=== PATIENT | female | born 1980 | race Caucasian/White ===

== ENCOUNTER 2025-02-01 16:03 | Outpatient (CLI) | payer OTHER, SELFPAY ==
--- NOTE | ~2025-02-01 | CT_ITS ---
EXAMINATION: CT BRAIN W/O DATE: 02/01/2025 16:36 INDICATION: Headache TECHNIQUE: Computed tomography (CT) of the head was performed without intravenous contrast. The dose- length product was 605.33 mGy-cm. Automated exposure control and iterative reconstruction technique w ere employed. COMPARISON: No prior studies for comparison. FINDINGS: Normal brain parenchymal volume for age. Normal agudelo-white differentiation. No acute intrac ranial hemorrhage, infarction, mass or mass effect. No ventriculomegaly or midline shift. Midline sagittal images demonstrate a normal corpus callosum, c raniovertebral junction and sella turcica. Basilar cisterns are patent. Paranasal sinuses are unremarkable. Small left mastoid effusion No depressed skull fractures. IMPRESSION: 1. No acute intracranial abnormality. Reviewed, dictated and finalized at location A.
--- OUTSIDE RECORDS SUMMARY | 2025-02-01 16:45 | XMS_ITS | Data Portability ---
Author Organization [place] - [facility] , [facility] Address [address] [place] [address] Assessment Encounter Date Assessment Date Assessment LastModified by Organization Details LastModified Time 09/16/2024 09/16/2024 DD: stye vs chalazion A: Chalazion suspected. Diagnosis and treatment plan discussed with patient using shared decision making. Patient voices understanding and agrees with treatment plan. P: Use erythromycin ointment as prescribed. Apply warm compresses to left eye 3 times daily for 10-15 minutes each time. Follow up with your regular doctor in 5 days if not improved. [email or web address] Not available 09/16/2024 12:37:32 Plan of Treatment Reminders Order Date Submit Date Provider Last Modified By Organization Details Last Modified Time Details Appointments None recorded. Lab None recorded. Referral None recorded. Procedures None recorded. Surgeries None recorded. Imaging None recorded. Medication Orders erythromyci n 5 mg/gram (0.5 %) eye ointment 2023 024 [facility] [id number], [address], 12:38:28 Patient TargetsNo targets recorded. Patient Instructions Encounter Date Encounter Id Patient Instructions Last Modified By Organization Details Last Modified Time 09/16/2024 [id number] styes and chalazia: care instructions [email or web address] Not available 09/16/2024 12:38:25 Reason for Referral None Reported. Medical Equipment None Reported. Allergies No known drug allergies Medications Name Sig Start Date Stop Date Status Note LastModified by Organization Details LastModified Time clonidine HCl 0.1 mg tablet TAKE 1 TABLET BY MOUTH TWICE A DAY active Not Available Not Available No t Available alprazolam 1 mg tablet TAKE 1 TABLET BY MOUTH TWICE A DAY active Not Available Not Available No t Available metronidaz ole 500 mg tablet TAKE 1 TABLET BY MOUTH THREE TIMES A DAY. AVOID ALCOHOL CONSUMPTI ON active Not Available Not Available No t Available pantoprazo le 40 mg tablet,del ayed release TAKE 1 TABLET BY MOUTH EVERY DAY active Not Available Not Available No t Available erythromyc in 5 mg/gram (0.5 %) eye ointment APPLY 1 CM RIBBON INTO THE LOWER CONJUNCTI JESSEE SAC(S) IN THE AFFECTED EYE(S) BY OPHTHALMI C ROUTE 3 TIMES PER DAY 2023 active Not Available Not Available Not Avai lable levofloxac in 500 mg tablet TAKE 1 TABLET BY MOUTH EVERY DAY active Not Available Not Available No t Available bupropion HCl XL 150 mg 24 hr tablet, extended release TAKE 1 TABLET BY MOUTH EVERY DAY DIRECTED active Not Available Not Available No t Available clonidine active ADDED BY PATIENT: .1 mg per day for hot flashes Not Available Not Available Not Available cetirizine active ADDED BY PATIENT: 1 x per day for allergies Not Available Not Available Not Available pantoprazo le active ADDED BY PATIENT: once per day in the am for acid reflux. Not Available Not Available Not Available multivitam in active ADDED BY PATIENT: 1xper day Not Available Not Available Not Available Flonase Allergy Relief active ADDED BY PATIENT: over the counter version2 squirts per nostril 1xper day Not Available Not Available Not Available Vitals None Recorded Social History None recorded. Functional Status None recorded. Mental Status None recorded. Family History Nothing Reported. Medical History No medical history recorded. Gynecological HistoryNo gynecological history recorded. Obstetrics History GPAL:G 0 P 0 0 0 0 Past Encounters Encounter ID Performer Location Encounter Start Date Encounter Closed Date Diagnosis/Indication Diagnosis SNOMED-CT Code Diagnosis ICD10 Code Diagnosis Note [id number] GABRIELLE Cook [facility] [address] [place] [address] 09/16/2024 12:24:59 09/16/2024 18:36:02 Chalazion of left upper eyelid [id number] 80923 H00.14 Health Concerns Section Related Observation LastModified by Organization Detai ls LastModified Time None Recorded Concern Status LastModified by Organization Details LastModified Time None Recorded Advance Directives Directive None Recorded Payers Encounter Date Sequence Insurance Name Policy Number Policy Iglesias Covered Member ID Iglesias Member ID Guarantor Name 09/16/2024 1 [facility] [id number] Deloris Rosenthal [id number] Deloris Rosenthal 09/16/2024 2 *SELF PAY* [id number] Deloris Rosenthal [id number] Deloris Rosenthal Notes Date Note Type Note Provider Name and Address Organization Details Recorded Time 09/16/2024 text/html Call connected, patient greeted. Patient name, , telephone number and location verified verbally with the patient. Telemedicine limitations reviewed, answered all questions the patient had about the telehealth interaction, and verbal consent obtained to treat. Clinician attests they are physically located in the following state at the time of visit: [place] CC:eyelid HPI:43 year old female patient presents today for left upper eyelid swelling and redness starting 6 days agoOTC/prescription medications and/or at home treatments include: warm compresses without reliefPatient denies: changes to vision or pain GABRIELLE Cook [address] [place] [address], [address], [facility] - [facility] 09/16/2024 12:38:31 OBGyn Episode No OBEpisode recorded.
--- OUTSIDE RECORDS SUMMARY | 2025-02-01 16:45 | XMS_ITS | Data Portability ---
Author Organization [facility] Cynny, Main Office Address [address] [place] [address] Assessment Encounter Date Assessment Date Assessment LastModified by Organization Details LastModified Time 01/12/2023 01/12/2023 Upper and lower endoscopies continue with current therapy she will see me back in 4 months anxiety discussed refill [email or web address] Diverticulitis dietary strategies discussed Sumatriptan migraines [email or web address] Not available 01/18/2023 13:28:57 05/06/2023 05/06/2023 Will try to get a G LP 1 agent. 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 Lab [email or web address] obin, total, blood 2022 023 [facility] (Lab), [address] [place], [address], 16:56:21 T3, free, serum or plasma 2022 023 [facility] (Lab), [address] [place], [address], 3 12:57:45 TSH, serum or plasma 2022 023 [facility] (Lab), [address] [place], [address], 3 12:59:57 T4, free, serum 2022 023 [facility] (Lab), [address] [place], [address], 3 12:57:55 CBC w/ auto diff 2022 023 [facility] (Lab), [address] [place], [address], 3 12:22:14 lipid panel, serum 2022 023 [facility] (Lab), [address] [place], [address], 3 12:37:23 CMP, serum or plasma 2022 023 [facility] (Lab), [address] [place], [address], 3 12:37:29 Referral None recorded. Procedures None recorded. Surgeries None recorded. Imaging None recorded. Medication Orders Wegovy 0.25 mg/0.5 mL subcutaneou s pen injector 2022 023 [id number], [address] [place], [address], 11:40:20 Patient TargetsNo targets recorded. Patient InstructionsNo instructions recorded. Reason for Referral None Reported. Results Created Date Observation Date Name Description Value Unit Range Abnormal Flag Note LastModifiedBy Organization Detail LastModifiedTime 11/05/19 23 11/05/2022 COMPR EHENS SHIRLEY METAB OLIC PANEL sodium 138 mmol/ L 137-14 5 Not Available [facility] (Lab) [address] [place], [address], 11/05/2022 22:28:42 11/05/19 23 11/05/2022 COMPR EHENS SHIRLEY METAB OLIC PANEL potassium 4.3 mmol/ L 3.5-5. 1 Not Available [facility] (Lab) [address] [place], [address], 11/05/2022 22:28:42 11/05/19 23 11/05/2022 COMPR EHENS SHIRLEY METAB OLIC PANEL chloride 102 mmol/ L 98-107 Not Available [facility] (Lab) [address] [place], [address], 11/05/2022 22:28:42 11/05/19 23 11/05/2022 COMPR EHENS SHIRLEY METAB OLIC PANEL carbon dioxide 26 mmol/ L 22-30 Not Available [facility] (Lab) [address] [place], [address], 11/05/2022 22:28:42 11/05/19 23 11/05/2022 COMPR EHENS SHIRLEY METAB OLIC PANEL anion gap 14.3 mmol/ L 14-22 Not Available [facility] (Lab) [address] [place], [address], 11/05/2022 22:28:42 11/05/19 23 11/05/2022 COMPR EHENS SHIRLEY METAB OLIC PANEL glucose 87 mg/dL 70-99 Not Available [facility] (Lab) [address] [place], [address], 11/05/2022 22:28:42 11/05/19 23 11/05/2022 COMPR EHENS SHIRLEY METAB OLIC PANEL BUN 10 mg/dL 8-19 Not Available [facility] (Lab) [address] [place], [address], 11/05/2022 22:28:42 11/05/19 23 11/05/2022 COMPR EHENS SHIRELY METAB OLIC PANEL creatinine 0.65 mg/dL 0.66-1 .25 low Not Available [facility] (Lab) [address] [place], [address], 11/05/2022 22:28:42 11/05/19 23 11/05/2022 COMPR EHENS SHIRLEY METAB OLIC PANEL GFR >60 Refer ence Range : [place] ge GFR Healt hy Adult : >60 mL/mi n/1.7 3 m2 Chron ic Kidne y Disea se: 15-60 mL/mi n/1.7 3 m2 Kidne y Failu re: <15/m L/min /1.73 m2 www.n iddk. nih.g ov The MDRD study equat ion has not been valid ated in child charisse <18 years of age; pregn ant women ; the elder ly >85 years of age; or in some racia l or ethni c subgr oups, such as [facility] nics. Outsi de the valid ated santosh eters , estim ated GFR is less accur ate, requi ring clini nidia judgm ent on a case- by-ca se basis . Clini nidia inter preta tion for other races and ages must be made by the clini anahy. The MDRD study equat ion has not been valid ated for the evalu ation of serum creat inine relat ed to nutri perri l statu s or medic ation usage . For perso ns <18 years of age, a pedia tric GFR calcu lator is avail able on the F websi te: https ://ww w.kid alec.o rg/pr ofess ional s/kdo qi/gf r_cal culat or Not Available [facility] (Lab) [address] [place], [address], 11/05/2022 22:28:42 11/05/19 23 11/05/2022 COMPR EHENS SHIRLEY METAB OLIC PANEL alkaline phosphatase 84 U/L 38-126 Not Available [facility] (Lab) [address] [place], [address], 11/05/2022 22:28:42 11/05/19 23 11/05/2022 COMPR EHENS SHIRLEY METAB OLIC PANEL alanine aminotransfe rase 27 U/L 0-35 Not Available [facility] (Lab) [address] [place], [address], 11/05/2022 22:28:42 11/05/19 23 11/05/2022 COMPR EHENS SHIRLEY METAB OLIC PANEL aspartate aminotransfe rase 26 U/L 15-37 Not Available [facility] (Lab) [address] [place], [address], 11/05/2022 22:28:42 11/05/19 23 11/05/2022 COMPR EHENS SHIRLEY METAB OLIC PANEL bilirubin, total 0.80 mg/dL 0.20-1 .30 Not Available [facility] (Lab) [address] [place], [address], 11/05/2022 22:28:42 11/05/19 23 11/05/2022 COMPR EHENS SHIRLEY METAB OLIC PANEL calcium 9.3 mg/dL 8.4-10 .2 Not Available [facility] (Lab) [address] [place], [address], 11/05/2022 22:28:42 11/05/19 23 11/05/2022 COMPR EHENS SHIRLEY METAB OLIC PANEL total protein 7.5 g/dL 6.3-8. 2 Not Available [facility] (Lab) [address] [place], [address], 11/05/2022 22:28:42 11/05/19 23 11/05/2022 COMPR EHENS SHIRLEY METAB OLIC PANEL albumin 4.7 g/dL 3.4-5. 0 Not Available [facility] (Lab) [address] [place], [address], 11/05/2022 22:28:42 11/05/19 23 11/05/2022 COMPR EHENS SHIRLEY METAB OLIC PANEL globulin 2.8 g/dL 2.6-4. 2 Not Available [facility] (Lab) [address] [place], [address], 11/05/2022 22:28:42 11/05/19 23 11/05/2022 COMPR EHENS SHIRLEY METAB OLIC PANEL A/G ratio 1.7 ratio 1.0-2. 0 Not Available [facility] (Lab) [address] [place], [address], 11/05/2022 22:28:42 11/05/19 23 11/05/2022 LIPID PANEL cholesterol 230 mg/dL 140-19 9 high NIH [facility] NSUS RECOM MENDA TION FOR LOLI STERO L: ADULT CHILD LOW RISK: <200 <170 BORDE RLINE : <200- 239 ----- HIGH RISK: >240 >200 Not Available [facility] (Lab) [address] [place], [address], 11/05/2022 19:00:34 11/05/1911/05/2022 LIPID PANEL triglyceride s 103 mg/dL 0-150 NIH [facility] NSUS REPOR T RECOM MENDA TION FOR TRIGL YCERI FESTUS: ADULT CHILD LOW RISK: <150 ----- BODER LINE: 150-1 99 ----- HIGH RISK: >200 ----- Not Available [facility] (Lab) [address] [place], [address], 11/05/2022 19:00:34 11/05/19 23 11/05/2022 LIPID PANEL HDL cholesterol 57 mg/dL 40- Not Available [facility] (Lab) [address] [place] [address], [address], 11/05/2022 19:00:34 11/05/19 23 11/05/2022 LIPID PANEL LDL cholesterol, calculated 152 mg/dL 0-130 high NIH [facility] NSUS REPOR T RECOM MENDA TIONS FOR LDL: ADULT CHILD LOW RISK <130 <110 (OPTI MAL LDL) <100 ----- BALADE RLINE : 130-1 59 ----- HIGH RISK: >160 >130 A TRIGL YCERI DE RESUL T >400 INVAL IDATE S THE CALCU LATIO N FOR LDL FRACT IONAT ION - THE LDL RESUL T WILL NOT BE REPOR SUN. Not Available [facility] (Lab) [address] [place], [address], 11/05/2022 19:00:34 11/05/19 23 11/05/2022 CBC W/O DIFFE RENTI AL white blood cells 11.2 x10'3 /uL 4.2-10 .8 high Not Available [facility] (Lab) [address] [place], [address], 11/05/2022 18:08:54 11/05/19 23 11/05/2022 CBC W/O DIFFE RENTI AL red blood cells 4.80 x10'6 /uL 3.80-5 .20 Not Available [facility] (Lab) [address] [place], [address], 11/05/2022 18:08:54 11/05/19 23 11/05/2022 CBC W/O DIFFE RENTI AL hemoglobin 14.4 g/dL 12.0-1 5.6 Not Available [facility] (Lab) [address] [place], [address], 11/05/2022 18:08:54 11/05/19 23 11/05/2022 CBC W/O DIFFE RENTI AL hematocrit 42.8 % 35.7-4 5.7 Not Available [facility] (Lab) [address] [place], [address], 11/05/2022 18:08:54 11/05/19 23 11/05/2022 CBC W/O DIFFE RENTI AL mean red cell volume 89.2 fL 82.0-9 9.0 Not Available [facility] (Lab) [address] [place], [address], 11/05/2022 18:08:54 11/05/19 23 11/05/2022 CBC W/O DIFFE RENTI AL mean red cell hemoglobin 30.0 pg 27.0-3 3.0 Not Available [facility] (Lab) [address] [place], [address], 11/05/2022 18:08:54 11/05/19 23 11/05/2022 CBC W/O DIFFE RENTI AL mean RBC HGB concentratio n 33.6 g/dL 31.0-3 6.0 Not Available [facility] (Lab) [address] [place], [address], 11/05/2022 18:08:54 11/05/19 23 11/05/2022 CBC W/O DIFFE RENTI AL red cell distribution width 12.3 % 11.8-1 5.5 Not Available [facility] (Lab) [address] [place], [address], 11/05/2022 18:08:54 11/05/19 23 11/05/2022 CBC W/O DIFFE RENTI AL platelets 242 x10'3 /uL 150-40 0 Not Available [facility] (Lab) [address] [place], [address], 11/05/2022 18:08:54 11/05/19 23 11/05/2022 CBC W/O DIFFE RENTI AL mean platelet volume 11.2 fL 9.0-12 .4 Not Available [facility] (Lab) [address] [place], [address], 11/05/2022 18:08:54 12/17/19 23 12/17/2022 URINE MICRO SCOPI C EXAM/ IRIS white blood cells 0-8 /i??h pfi?? 0-8 Not Available [facility] (Lab) [address] [place], [address], 12/17/2022 17:21:13 12/17/19 23 12/17/2022 URINE MICRO SCOPI C EXAM/ IRIS red blood cells 11-20 /i??h pfi?? 0-4 abnormal Not Available [facility] (Lab) [address] [place], [address], 12/17/2022 17:21:13 12/17/19 23 12/17/2022 URINE MICRO SCOPI C EXAM/ IRIS bacteria occasi onal abnormal Not Available [facility] (Lab) [address] [facility] [place], [address], 12/17/2022 17:21:13 12/17/19 23 12/17/2022 URINE MICRO SCOPI C EXAM/ IRIS mucous many /i??l pfi?? abnormal Not Available [facility] (Lab) [address] [place], [address], 12/17/2022 17:21:13 12/17/19 23 12/17/2022 URINE MICRO SCOPI C EXAM/ IRIS squamous epithelial packed field /i??l pfi?? abnormal Not Available [facility] (Lab) [address] [place], [address], 12/17/2022 17:21:13 12/17/19 23 12/17/2022 CBC/C OMPLE TE BLD COUNT W/DIF F white blood cells 12.6 x10'3 /uL 4.2-10 .8 high Not Available [facility] (Lab) [address] [place], [address], 12/17/2022 17:20:28 12/17/19 23 12/17/2022 CBC/C OMPLE TE BLD COUNT W/DIF F red blood cells 5.02 x10'6 /uL 3.80-5 .20 Not Available [facility] (Lab) [address] [place], [address], 12/17/2022 17:20:28 12/17/19 23 12/17/2022 CBC/C OMPLE TE BLD COUNT W/DIF F hemoglobin 15.1 g/dL 12.0-1 5.6 Not Available [facility] (Lab) [address] [place], [address], 12/17/2022 17:20:28 12/17/19 23 12/17/2022 CBC/C OMPLE TE BLD COUNT W/DIF F hematocrit 45.7 % 35.7-4 5.7 Not Available [facility] (Lab) [address] [place], [address], 12/17/2022 17:20:28 12/17/19 23 12/17/2022 CBC/C OMPLE TE BLD COUNT W/DIF F mean red cell volume 91.0 fL 82.0-9 9.0 Not Available [facility] (Lab) [address] [place], [address], 12/17/2022 17:20:28 12/17/19 23 12/17/2022 CBC/C OMPLE TE BLD COUNT W/DIF F mean red cell hemoglobin 30.1 pg 27.0-3 3.0 Not Available [facility] (Lab) [address] [place], [address], 12/17/2022 17:20:28 12/17/19 23 12/17/2022 CBC/C OMPLE TE BLD COUNT W/DIF F mean RBC HGB concentratio n 33.0 g/dL 31.0-3 6.0 Not Available [facility] (Lab) [address] [place], [address], 12/17/2022 17:20:28 12/17/19 23 12/17/2022 CBC/C OMPLE TE BLD COUNT W/DIF F red cell distribution width 12.2 % 11.8-1 5.5 Not Available [facility] (Lab) [address] [place], [address], 12/17/2022 17:20:28 12/17/19 23 12/17/2022 CBC/C OMPLE TE BLD COUNT W/DIF F platelets 306 x10'3 /uL 150-40 0 Not Available [facility] (Lab) [address] [place], [address], 12/17/2022 17:20:28 12/17/19 23 12/17/2022 CBC/C OMPLE TE BLD COUNT W/DIF F mean platelet volume 9.7 fL 9.0-12 .4 Not Available [facility] (Lab) [address] [place], [address], 12/17/2022 17:20:28 12/17/19 23 12/17/2022 CBC/C OMPLE TE BLD COUNT W/DIF F neutrophils 68.1 % 39.0-7 2.0 Not Available [facility] (Lab) [address] [place], [address], 12/17/2022 17:20:28 12/17/19 23 12/17/2022 CBC/C OMPLE TE BLD COUNT W/DIF F lymphocytes 20.9 % 16.0-4 7.0 Not Available [facility] (Lab) [address] [place], [address], 12/17/2022 17:20:28 12/17/19 23 12/17/2022 CBC/C OMPLE TE BLD COUNT W/DIF F monocytes 9.1 % 5.0-12 .0 Not Available [facility] (Lab) [address] [place], [address], 12/17/2022 17:20:28 12/17/19 23 12/17/2022 CBC/C OMPLE TE BLD COUNT W/DIF F eosinophils 1.0 % 1.0-7. 0 Not Available [facility] (Lab) [address] [place], [address], 12/17/2022 17:20:28 12/17/19 23 12/17/2022 CBC/C OMPLE TE BLD COUNT W/DIF F basophils 0.4 % 0.0-2. 0 Not Available [facility] (Lab) [address] [facility] [place], [address], 12/17/2022 17:20:28 12/17/19 23 12/17/2022 CBC/C OMPLE TE BLD COUNT W/DIF F immature granulocytes 0.5 % 0.00-0 .50 Not Available [facility] (Lab) [address] [facility] [place], [address], 12/17/2022 17:20:28 12/17/19 23 12/17/2022 CBC/C OMPLE TE BLD COUNT W/DIF F neutrophils, absolute count 8.58 x10'3 /uL 1.5-8. 0 high Not Available [facility] (Lab) [address] [place], [address], 12/17/2022 17:20:28 12/17/19 23 12/17/2022 CBC/C OMPLE TE BLD COUNT W/DIF F lymphocytes, absolute count 2.64 x10'3 /uL 1.07-3 .43 Not Available [facility] (Lab) [address] [place], [address], 12/17/2022 17:20:28 12/17/19 23 12/17/2022 CBC/C OMPLE TE BLD COUNT W/DIF F monocytes, absolute count 1.15 x10'3 /uL 0.29-0 .99 high Not Available [facility] (Lab) [address] [place], [address], 12/17/2022 17:20:28 12/17/19 23 12/17/2022 CBC/C OMPLE TE BLD COUNT W/DIF F eosinophils, absolute count 0.13 x10'3 /uL 0.02-0 .53 Not Available [facility] (Lab) [address] [place], [address], 12/17/2022 17:20:28 12/17/19 23 12/17/2022 CBC/C OMPLE TE BLD COUNT W/DIF F basophils, absolute count 0.05 x10'3 /uL 0.01-0 .08 Not Available [facility] (Lab) [address] [place], [address], 12/17/2022 17:20:28 12/17/19 23 12/17/2022 CBC/C OMPLE TE BLD COUNT W/DIF F immature granulocytes ,absolute 0.06 x10'3 /uL 0.00-0 .05 high Not Available [facility] (Lab) [address] [place], [address], 12/17/2022 17:20:28 12/17/19 23 12/17/2022 CBC/C OMPLE TE BLD COUNT W/DIF F nucleated red blood cells 0.0 % -0 Not Available [facility] (Lab) [address] [place], [address], 12/17/2022 17:20:28 12/17/19 23 12/17/2022 CBC/C OMPLE TE BLD COUNT W/DIF F NRBC# 0.00 x10'3 /uL Not Available [facility] (Lab) [address] [place], [address], 12/17/2022 17:20:28 12/17/19 23 12/17/2022 LIPAS E SERUM lipase 23 U/L 23-300 Not Available [facility] (Lab) [address] [place], [address], 12/17/2022 17:09:58 12/17/19 23 12/17/2022 COMPR EHENS SHIRLEY METAB OLIC PANEL sodium 136 mmol/ L 137-14 5 low Not Available [facility] (Lab) [address] [place], [address], 12/17/2022 17:09:10 12/17/19 23 12/17/2022 COMPR EHENS SHIRLEY METAB OLIC PANEL potassium 4.2 mmol/ L 3.5-5. 1 Not Available [facility] (Lab) [address] [place], [address], 12/17/2022 17:09:10 12/17/19 23 12/17/2022 COMPR EHENS SHIRLEY METAB OLIC PANEL chloride 104 mmol/ L 98-107 Not Available [facility] (Lab) [address] [place], [address], 12/17/2022 17:09:10 12/17/19 23 12/17/2022 COMPR EHENS SHIRLEY METAB OLIC PANEL carbon dioxide 25 mmol/ L 22-30 Not Available [facility] (Lab) [address] [place], [address], 12/17/2022 17:09:10 12/17/19 23 12/17/2022 COMPR EHENS SHIRLEY METAB OLIC PANEL anion gap 11.2 mmol/ L 14-22 low Not Available [facility] (Lab) [address] [place], [address], 12/17/2022 17:09:10 12/17/19 23 12/17/2022 COMPR EHENS SHIRLEY METAB OLIC PANEL glucose 98 mg/dL 70-99 Not Available [facility] (Lab) [address] [place], [address], 12/17/2022 17:09:10 12/17/19 23 12/17/2022 COMPR EHENS SHIRLEY METAB OLIC PANEL BUN 12 mg/dL 8-19 Not Available [facility] (Lab) [address] [place], [address], 12/17/2022 17:09:10 12/17/19 23 12/17/2022 COMPR EHENS SHIRLEY METAB OLIC PANEL creatinine 0.64 mg/dL 0.66-1 .25 low Not Available [facility] (Lab) [address] [place], [address], 12/17/2022 17:09:10 12/17/19 23 12/17/2022 COMPR EHENS SHIRLEY METAB OLIC PANEL GFR >60 Refer ence Range : [place] ge GFR Healt hy Adult : >60 mL/mi n/1.7 3 m2 Chron ic Kidne y Disea se: 15-60 mL/mi n/1.7 3 m2 Kidne y Failu re: <15/m L/min /1.73 m2 www.n iddk. nih.g ov The MDRD study equat ion has not been valid ated in child charisse <18 years of age; pregn ant women ; the elder ly >85 years of age; or in some racia l or ethni c subgr oups, such as [facility] nics. Outsi de the valid ated santosh eters , estim ated GFR is less accur ate, requi ring clini nidia judgm ent on a case- by-ca se basis . Clini nidia inter preta tion for other races and ages must be made by the clini anahy. The MDRD study equat ion has not been valid ated for the evalu ation of serum creat inine relat ed to nutri perri l statu s or medic ation usage . For perso ns <18 years of age, a pedia tric GFR calcu lator is avail able on the F websi te: https ://ww w.kid alec.o rg/pr ofess ional s/kdo qi/gf r_cal culat or Not Available [facility] (Lab) [address] [place], [address], 12/17/2022 17:09:10 12/17/19 23 12/17/2022 COMPR EHENS SHIRLEY METAB OLIC PANEL alkaline phosphatase 80 U/L 38-126 Not Available [facility] (Lab) [address] [place], [address], 12/17/2022 17:09:10 12/17/19 23 12/17/2022 COMPR EHENS SHIRLEY METAB OLIC PANEL alanine aminotransfe rase 28 U/L 0-35 Not Available [facility] (Lab) [address] [place], [address], 12/17/2022 17:09:10 12/17/19 23 12/17/2022 COMPR EHENS SHIRLEY METAB OLIC PANEL aspartate aminotransfe rase 35 U/L 15-37 Not Available [facility] (Lab) [address] [place], [address], 12/17/2022 17:09:10 12/17/19 23 12/17/2022 COMPR EHENS SHIRLEY METAB OLIC PANEL bilirubin, total 1.00 mg/dL 0.20-1 .30 Not Available [facility] (Lab) [address] [place], [address], 12/17/2022 17:09:10 12/17/19 23 12/17/2022 COMPR EHENS SHIRLEY METAB OLIC PANEL calcium 9.3 mg/dL 8.4-10 .2 Not Available [facility] (Lab) [address] [place], [address], 12/17/2022 17:09:10 12/17/19 23 12/17/2022 COMPR EHENS SHIRLEY METAB OLIC PANEL total protein 7.8 g/dL 6.3-8. 2 Not Available [facility] (Lab) [address] [place], [address], 12/17/2022 17:09:10 12/17/19 23 12/17/2022 COMPR EHENS SHIRLEY METAB OLIC PANEL albumin 4.5 g/dL 3.4-5. 0 Not Available [facility] (Lab) [address] [place], [address], 12/17/2022 17:09:10 12/17/19 23 12/17/2022 COMPR EHENS SHIRLEY METAB OLIC PANEL globulin 3.3 g/dL 2.6-4. 2 Not Available [facility] (Lab) [address] [place], [address], 12/17/2022 17:09:10 12/17/19 23 12/17/2022 COMPR EHENS SHIRLEY METAB OLIC PANEL A/G ratio 1.4 ratio 1.0-2. 0 Not Available [facility] (Lab) [address] [place], [address], 12/17/2022 17:09:10 05/06/20 23 05/06/2023 CBC/C OMPLE TE BLD COUNT W/DIF F white blood cells 7.1 x10'3 /uL 4.2-10 .8 Not Available [facility] (Lab) [address] [place], [address], 05/06/2023 12:22:14 05/06/20 23 05/06/2023 CBC/C OMPLE TE BLD COUNT W/DIF F red blood cells 4.62 x10'6 /uL 3.80-5 .20 Not Available [facility] (Lab) [address] [place], [address], 05/06/2023 12:22:14 05/06/20 23 05/06/2023 CBC/C OMPLE TE BLD COUNT W/DIF F hemoglobin 14.1 g/dL 12.0-1 5.6 Not Available [facility] (Lab) [address] [place], [address], 05/06/2023 12:22:14 05/06/20 23 05/06/2023 CBC/C OMPLE TE BLD COUNT W/DIF F hematocrit 41.7 % 35.7-4 5.7 Not Available [facility] (Lab) [address] [place], [address], 05/06/2023 12:22:14 05/06/20 23 05/06/2023 CBC/C OMPLE TE BLD COUNT W/DIF F mean red cell volume 90.3 fL 82.0-9 9.0 Not Available [facility] (Lab) [address] [place], [address], 05/06/2023 12:22:14 05/06/20 23 05/06/2023 CBC/C OMPLE TE BLD COUNT W/DIF F mean red cell hemoglobin 30.5 pg 27.0-3 3.0 Not Available [facility] (Lab) [address] [place], [address], 05/06/2023 12:22:14 05/06/20 23 05/06/2023 CBC/C OMPLE TE BLD COUNT W/DIF F mean RBC HGB concentratio n 33.8 g/dL 31.0-3 6.0 Not Available [facility] (Lab) [address] [place], [address], 05/06/2023 12:22:14 05/06/20 23 05/06/2023 CBC/C OMPLE TE BLD COUNT W/DIF F red cell distribution width 12.0 % 11.8-1 5.5 Not Available [facility] (Lab) [address] [place], [address], 05/06/2023 12:22:14 05/06/20 23 05/06/2023 CBC/C OMPLE TE BLD COUNT W/DIF F platelets 251 x10'3 /uL 150-40 0 Not Available [facility] (Lab) [address] [place], [address], 05/06/2023 12:22:14 05/06/20 23 05/06/2023 CBC/C OMPLE TE BLD COUNT W/DIF F mean platelet volume 9.9 fL 9.0-12 .4 Not Available [facility] (Lab) [address] [place], [address], 05/06/2023 12:22:14 05/06/20 23 05/06/2023 CBC/C OMPLE TE BLD COUNT W/DIF F neutrophils 62.9 % 39.0-7 2.0 Not Available [facility] (Lab) [address] [place], [address], 05/06/2023 12:22:14 05/06/20 23 05/06/2023 CBC/C OMPLE TE BLD COUNT W/DIF F lymphocytes 26.1 % 16.0-4 7.0 Not Available [facility] (Lab) [address] [place], [address], 05/06/2023 12:22:14 05/06/20 23 05/06/2023 CBC/C OMPLE TE BLD COUNT W/DIF F monocytes 8.4 % 5.0-12 .0 Not Available [facility] (Lab) [address] [place], [address], 05/06/2023 12:22:14 05/06/20 23 05/06/2023 CBC/C OMPLE TE BLD COUNT W/DIF F eosinophils 1.1 % 1.0-7. 0 Not Available [facility] (Lab) [address] [place], [address], 05/06/2023 12:22:14 05/06/20 23 05/06/2023 CBC/C OMPLE TE BLD COUNT W/DIF F basophils 0.7 % 0.0-2. 0 Not Available [facility] (Lab) [address] [place], [address], 05/06/2023 12:22:14 05/06/20 23 05/06/2023 CBC/C OMPLE TE BLD COUNT W/DIF F immature granulocytes 0.8 % 0.00-0 .50 high Not Available [facility] (Lab) [address] [place], [address], 05/06/2023 12:22:14 05/06/20 23 05/06/2023 CBC/C OMPLE TE BLD COUNT W/DIF F neutrophils, absolute count 4.47 x10'3 /uL 1.5-8. 0 Not Available [facility] (Lab) [address] [place], [address], 05/06/2023 12:22:14 05/06/20 23 05/06/2023 CBC/C OMPLE TE BLD COUNT W/DIF F lymphocytes, absolute count 1.86 x10'3 /uL 1.07-3 .43 Not Available [facility] (Lab) [address] [place], [address], 05/06/2023 12:22:14 05/06/20 23 05/06/2023 CBC/C OMPLE TE BLD COUNT W/DIF F monocytes, absolute count 0.60 x10'3 /uL 0.29-0 .99 Not Available [facility] (Lab) [address] [place], [address], 05/06/2023 12:22:14 05/06/20 23 05/06/2023 CBC/C OMPLE TE BLD COUNT W/DIF F eosinophils, absolute count 0.08 x10'3 /uL 0.02-0 .53 Not Available [facility] (Lab) [address] [place], [address], 05/06/2023 12:22:14 05/06/20 23 05/06/2023 CBC/C OMPLE TE BLD COUNT W/DIF F basophils, absolute count 0.05 x10'3 /uL 0.01-0 .08 Not Available [facility] (Lab) [address] [place], [address], 05/06/2023 12:22:14 05/06/20 23 05/06/2023 CBC/C OMPLE TE BLD COUNT W/DIF F immature granulocytes ,absolute 0.06 x10'3 /uL 0.00-0 .05 high Not Available [facility] (Lab) [address] [place], [address], 05/06/2023 12:22:14 05/06/20 23 05/06/2023 CBC/C OMPLE TE BLD COUNT W/DIF F nucleated red blood cells 0.0 % -0 Not Available [facility] (Lab) [address] [place], [address], 05/06/2023 12:22:14 05/06/20 23 05/06/2023 CBC/C OMPLE TE BLD COUNT W/DIF F NRBC# 0.00 x10'3 /uL Not Available [facility] (Lab) [address] [place], [address], 05/06/2023 12:22:14 05/06/20 23 05/06/2023 LIPID PANEL cholesterol 212 mg/dL 140-19 9 high NIH [facility] NSUS RECOM MENDA TION FOR LOLI STERO L: ADULT CHILD LOW RISK: <200 <170 BORDE RLINE : <200- 239 ----- HIGH RISK: >240 >200 Not Available [facility] (Lab) [address] [place], [address], 05/06/2023 12:37:23 05/06/2005/06/2023 LIPID PANEL triglyceride s 79 mg/dL 0-150 NIH [facility] NSUS REPOR T RECOM MENDA TION FOR TRIGL YCERI FESTUS: ADULT CHILD LOW RISK: <150 ----- BODER LINE: 150-1 99 ----- HIGH RISK: >200 ----- Not Available [facility] (Lab) [address] [place], [address], 05/06/2023 12:37:23 05/06/20 23 05/06/2023 LIPID PANEL HDL cholesterol 58 mg/dL 40- Not Available [facility] (Lab) [address] [place], [address], 05/06/2023 12:37:23 05/06/2005/06/2023 LIPID PANEL LDL cholesterol, calculated 138 mg/dL 0-130 high NIH [place] NSUS REPOR T RECOM MENDA TIONS FOR LDL: ADULT CHILD LOW RISK <130 <110 (OPTI MAL LDL) <100 ----- BORDE RLINE : 130-1 59 ----- HIGH RISK: >160 >130 A TRIGL YCERI DE RESUL T >400 INVAL IDATE S THE CALCU LATIO N FOR LDL FRACT IONAT ION - THE LDL RESUL T WILL NOT BE REPOR SUN. Not Available [facility] (Lab) [address] [place], [address], 05/06/2023 12:37:23 05/06/20 23 05/06/2023 COMPR EHENS SHIRLEY METAB OLIC PANEL sodium 138 mmol/ L 137-14 5 Not Available [facility] (Lab) [address] [place], [address], 05/06/2023 12:37:29 05/06/20 23 05/06/2023 COMPR EHENS SHIRLEY METAB OLIC PANEL potassium 4.1 mmol/ L 3.5-5. 1 Not Available [facility] (Lab) [address] [place], [address], 05/06/2023 12:37:29 05/06/20 23 05/06/2023 COMPR EHENS SHIRLEY METAB OLIC PANEL chloride 106 mmol/ L 98-107 Not Available [facility] (Lab) [address] [place], [address], 05/06/2023 12:37:29 05/06/20 23 05/06/2023 COMPR EHENS SHIRLEY METAB OLIC PANEL carbon dioxide 21 mmol/ L 22-30 low Not Available [facility] (Lab) [address] [place], [address], 05/06/2023 12:37:29 05/06/20 23 05/06/2023 COMPR EHENS SHIRLEY METAB OLIC PANEL anion gap 15.1 mmol/ L 14-22 Not Available [facility] (Lab) [address] [place], [address], 05/06/2023 12:37:29 05/06/20 23 05/06/2023 COMPR EHENS SHIRLEY METAB OLIC PANEL glucose 102 mg/dL 70-99 high Not Available [facility] (Lab) [address] [place], [address], 05/06/2023 12:37:29 05/06/20 23 05/06/2023 COMPR EHENS SHIRLEY METAB OLIC PANEL BUN 9 mg/dL 8-19 Not Available [facility] (Lab) [address] [place], [address], 05/06/2023 12:37:29 05/06/20 23 05/06/2023 COMPR EHENS SHIRLEY METAB OLIC PANEL creatinine 0.61 mg/dL 0.66-1 .25 low Not Available [facility] (Lab) [address] [place], [address], 05/06/2023 12:37:29 05/06/20 23 05/06/2023 COMPR EHENS SHIRLEY METAB OLIC PANEL GFR >60 Refer ence Range : [place] ge GFR Healt hy Adult : >60 mL/mi n/1.7 3 m2 Chron ic Kidne y Disea se: 15-60 mL/mi n/1.7 3 m2 Kidne y Failu re: <15/m L/min /1.73 m2 www.n iddk. nih.g ov The MDRD study equat ion has not been valid ated in child charisse <18 years of age; pregn ant women ; the elder ly >85 years of age; or in some racia l or ethni c subgr oups, such as Hispa nics. Outsi de the valid ated santosh eters , estim ated GFR is less accur ate, requi ring clini nidia judgm ent on a case- by-ca se basis . Clini nidia inter preta tion for other races and ages must be made by the clini anahy. The MDRD study equat ion has not been valid ated for the evalu ation of serum creat inine relat ed to nutri perri l statu s or medic ation usage . For perso ns <18 years of age, a pedia tric GFR calcu lator is avail able on the [facility] websi te: https ://ww w.kid alec.o rg/pr ofess ional s/kdo qi/gf r_cal culat or Not Available [facility] (Lab) [address] [place], [address], 05/06/2023 12:37:29 05/06/20 23 05/06/2023 COMPR EHENS SHIRLEY METAB OLIC PANEL alkaline phosphatase 91 U/L 38-126 Not Available [facility] (Lab) [address] [place], [address], 05/06/2023 12:37:29 05/06/20 23 05/06/2023 COMPR EHENS SHIRLEY METAB OLIC PANEL alanine aminotransfe rase 20 U/L 0-35 Not Available [facility] (Lab) [address] [place], [address], 05/06/2023 12:37:29 05/06/20 23 05/06/2023 COMPR EHENS SHIRLEY METAB OLIC PANEL aspartate aminotransfe rase 21 U/L 15-37 Not Available [facility] (Lab) [address] [place], [address], 05/06/2023 12:37:29 05/06/20 23 05/06/2023 COMPR EHENS SHIRLEY METAB OLIC PANEL bilirubin, total 0.50 mg/dL 0.20-1 .30 Not Available [facility] (Lab) [address] [place], [address], 05/06/2023 12:37:29 05/06/20 23 05/06/2023 COMPR EHENS SHIRLEY METAB OLIC PANEL calcium 8.5 mg/dL 8.4-10 .2 Not Available [facility] (Lab) [address] [place], [address], 05/06/2023 12:37:29 05/06/20 23 05/06/2023 COMPR EHENS SHIRLEY METAB OLIC PANEL total protein 6.7 g/dL 6.3-8. 2 Not Available [facility] (Lab) [address] [place], [address], 05/06/2023 12:37:29 05/06/20 23 05/06/2023 COMPR EHENS SHIRLEY METAB OLIC PANEL albumin 4.0 g/dL 3.4-5. 0 Not Available [facility] (Lab) [address] [place], [address], 05/06/2023 12:37:29 05/06/20 23 05/06/2023 COMPR EHENS SHIRLEY METAB OLIC PANEL globulin 2.7 g/dL 2.6-4. 2 Not Available [facility] (Lab) [address] [place], [address], 05/06/2023 12:37:29 05/06/20 23 05/06/2023 COMPR EHENS SHIRLEY METAB OLIC PANEL A/G ratio 1.5 ratio 1.0-2. 0 Not Available [facility] (Lab) [address] [place], [address], 05/06/2023 12:37:29 05/06/20 23 05/06/2023 T3 FREE free T3 3.6 pg/mL 2.77-5 .27 Not Available [facility] (Lab) [address] [place], [address], 05/06/2023 12:57:45 05/06/20 23 05/06/2023 T4 FREE free T4 1.35 NG/dL 0.78-2 .19 Not Available [facility] (Lab) [address] [place], [address], 05/06/2023 12:57:55 05/06/20 23 05/06/2023 TSH thyroid-stim ulating hormone 1.110 uIU/m L 0.465- 4.680 Not Available [facility] (Lab) [address] [place], [address], 05/06/2023 12:59:56 05/06/20 23 05/06/2023 HEMOG LOBIN A1C HA1C 5.2 % 4.0-6. 0 Diabe tahir Screagustina clark Crite sandra: <5.7% Consi stent with absen ce of diabe tahir 5.7-6 .4% Consi stent with incre ased risk for diabe tahir (pred iabet es) >OR=6 .5% Consi stent with diabe tahir REFER ENCE: Diabe tahir Care 2016, 39(Mock ppl.1 ):s13 -s22 Not Available [facility] (Lab) [address] [place], [address], 05/06/2023 16:56:21 10/10/20 22 10/09/2022 screagustina eduardo breas t jeffery, bilat [facility] [address] [place] [address] Patien t Name: SANTINO AKINS Tony Access ion #: [id number] Sex: F : 1979 8 Locati on: RAD Attend ing Physic edison: NIYAH WALSH Orderi ng Physic edison: NIYAH WALSH Exam Date: 022 3:23 PM Exam Name: MG LOLI BREAST JEFFERY BILAT Admitt ing Diagno sis(es ): MAMMOG JENNY REPORT - FINAL EXAM: MG SCRN BREAST JEFFERY BILAT HISTOR Y: SCREEN ING MAMMOG CORRIE 42-yea r-old female with no curren t breast compla ints. COMPAR KANWAL: 2019, 2018 TECHNI QUE: Bilate ral CC and MLO views of the breast s were perfor med. Digita l Mammog jenny images were obtain ed. CAD (compu ter assist ed detect ion) was utiliz ed. 3D Digita l breast tomosy nthesi s was perfor med and used in the interp retati on of images . FINDIN GS: There are scatte red areas of fibrog landul ar densit y. No masses , asymme tries, suspic ious calcif icatio ns, or edgar ectura l Page 1 of 2 [facility] Sandy lamas Name: SANTINO AKINS Access ion #: [id number] Sex: F : 1979 7 Exam Date: 022 3:23 PM Exam Name: MG SCRN BREAST JEFFERY BILAT Admitt ing Diagno sis(es ): distor tion are seen. IMPRES CLAUDETTE: BIRADS 1: Assess ment comple te. Negati ve. Recomm end annual screen ing mammog jenny. Accord ing to the [employer], yearly mammog maria g are recomm ended starti ng at age 40 and contin uing as long as the woman is in good health . Clinic al Breast Exam should be part of the period ic health exam-a bout every 3 years for women in their 20s and 30s and every year for women 40 and over. Breast self-e xam is an option for women in their 20s. Any breast change noted on the breast self-e xam she would be report ed prompt ly to the [facility]. A negati ve mammog jenny report should not discou rage follow -up or biopsy of a clinic ally signif icant findin g and/or abnorm ality. Dense breast tissue may obscur e small neopla sms. This sandy lamas has been entere d into a mammog jenny remind er system with a target date for her next mammog corrie. Create d and electr onical ly signed by: Cecil berrios MD Signed Date: 8:46 AM (CT) Dictat ed by: Cecil berrios MD DD: 8:46 AM (CT) DT: 8:46 AM (CT) Page 2 of 2 [id number] [facility] (Imaging) [address] [place], [address], 12/31/2022 05:13:11 11/05/19 23 10/09/2022 MAMMO , scree eduardo, digit al, bilat eral No observ ation record ed. [id number] [facility] (Imaging) [address] [place], [address], 12/31/2022 05:13:11 12/17/19 23 12/17/2022 CT, abdom en + pelvi s, w/ contr ast [facility] [address] [place] [address] Patien t Name: SANTINO AKINS Access ion #: [id number] Sex: F : 1979 5 Locati on: MOP Attend ing Physic edison: NIYAH WALSH Orderi ng Physic edison: NIYAH WALSH Exam Date: 023 4:01 PM Exam Name: CT ABDOME N PELVIS W Admitt ing Diagno sis(es ): RADIOL OGY REPORT - FINAL EXAM: CT ABDOME N PELVIS W HISTOR Y: unspec ified abdomi nal pain 42-yea r-old female with left lower quadra nt abdomi nal pain; prior cholec ystect maribell and append ectomy . COMPAR KANWAL: CT scan of the abdome n and pelvis dated 2018. TECHNI QUE: Helica l CT images of the abdome n and pelvis were perfor med with 100 mL Isovue [address] and 30 ml Gastro view oral contra st. Sagitt al and panchal l reform atted images were obtain ed. This CT exam was perfor med using 1 or more of the follow ing dose reduct ion techni ques: Automa sun exposu re contro l, adjust ment of the mA and/or kv accord ing to patien t size, or the use of iterat shirley recons tructi on techni ques. PONCE GS: Page 1 of 2 [facility] Patien t Name: SANTINO AKINS Access ion #: [id number] Sex: F : 1979 5 Exam Date: 023 4:01 PM Exam Name: CT ABDOME N PELVIS W Admitt ing Diagno sis(es ): CT abdome n: The lung bases are clear. There is a small slidin g hiatal hernia . The gallbl adder is surgic ally absent . There is a left upper quadra nt splenu le. The liver, spleen , pancre as, kidney s, and adrena l glands are unrema rkable . No abdomi nal aortic aneury sm or dissec tion. CT pelvis : No abnorm al bowel dilata tion, free air, free fluid, or suspic ious adenop athy. There is descen ding and sigmoi d colon divert iculos is. There is sigmoi d colon wall thicke eduardo and adjace nt fat strand ing consis tent with acute divert iculit is. No eviden ce of dorie lic absces s at this time. There are multip le mildly enlarg ed left lower quadra nt mesent jennifer lymph nodes. The append ix is surgic ally absent . The urinar y bladde r is unrema rkable . There is mild osteoa rthrit is of the bilate ral hips. There are mild degene rative change s of the lumbar spine. There is a right prefor aminal disc hernia tion at L5-S1. IMPRES CLAUDETTE: 1. Sigmoi d colon acute divert iculit is withou t eviden ce of dorie lic absces s. 2. Postop erativ e change s of cholec ystect maribell and append ectomy . 3. No eviden ce of bowel obstru ction or other acute proces s in the abdome n or pelvis . Create d and electr onical ly signed by: Cecil berrios MD Signed Date: 5:09 PM (CT) Dictat ed by: Cecil berrios MD DD: 023 5:09 PM (CT) DT: 023 5:09 PM (CT) Page 2 of 2 [id number] [facility] (Imaging) [address] [place], [address], 12/31/2022 05:13:11 02/13/20 23 02/03/2023 colon oscop y scree eduardo (PROC ) No observ ation record ed. Not Available 03/2023 15:55:32 02/13/20 23 02/03/2023 upper endos copy proce dure (EGD) (PROC ) No observ ation record ed. [email or web address] Not Available 03/2023 15:55:32 Result Notes None recorded. Problems Name Problem SNOMED Code Status Onset Date Resolution Date Notes Provider Name and Address Organization Details Recorded Time Abdominal pain 14596994 Active Not Available [facility] 3 18:50:20 Skeletal muscle tender 23172723 Active Not Available [facility] 3 18:50:20 Headache 60618789 Active 2022 Not Available [facility] 3 18:50:20 Diverticuliti s 685817158 Active 2022 Not Available [facility] 3 18:50:20 Blood in urine 39371957 Active Not Available [facility] 3 18:50:20 Migraine 93599950 Active 2020 Not Available [facility] 3 18:50:20 Disorder of menstruation 702042563 Active Not Available [facility] 3 18:50:20 Chronic sinusitis 52208457 Active Not Available [facility] 3 18:50:20 Dysphagia 04021023 Active 2022 Not Available [facility] 3 18:50:20 Pain in eye 60568593 Active Not Available [facility] 3 18:50:20 Nausea 099213900 Active Not Available [facility] 3 18:50:20 Anxiety 68956432 Active 2020 Not Available [facility] 3 18:50:20 Sinus headache 9499094 Active Not Available [facility] 3 18:50:20 Upper respiratory infection 86662579 Active 2021 Not Available [facility] 3 18:50:20 Essential hypertension 87042533 Active 2020 Not Available [facility] 3 18:50:20 Diverticuliti s of sigmoid colon 314616103 Active 2022 Not Available [facility] 3 18:50:20 Obesity 285580629 Active 2022 Not Available [facility] 3 18:50:20 Problem Notes None recorded. Procedures Surgical History Date Name Laterality Status Provider Name and Address Organization Details Recorded Time 06/25/20 Cholecystectomy completed Not Available [facility] 12/31/2022 04:59:11 hysteroscopy completed Not Available [facility] 12/31/2022 04:59:11 Hysterectomy, Partial completed Not Available [facility] 12/31/2022 04:59:11 revision rhinoplasty completed Not Available [facility] 12/31/2022 04:59:11 Appendectomy completed Not Available [facility] 12/31/2022 04:59:11 tonsilectomy/adeno ids completed Not Available [facility] 12/31/2022 04:59:11 ENT Surgery completed Not Available [facility] 12/31/2022 04:59:11 Imaging Results Imaging Date Name Status LastModified by Organiz ation Details LastModified Time 10/09/2022 MAMMO, screening, digital, bilateral completed [id number] [facility] (Imaging) [address] [place], [address], 12/31/2022 05:13:11 12/17/2022 CT, abdomen + pelvis, w/ contrast completed [id number] [facility] (Imaging) [address] [place], [address], 12/31/2022 05:13:11 10/09/2022 screening breast jeffery, bilat completed [id number] [facility] (Imaging) [address] [place], [address], 12/31/2022 05:13:11 02/03/2023 colonoscopy screening (PROC) completed [id number] Information not available 05/06/2023 15:55:32 02/03/2023 upper endoscopy procedure (EGD) (PROC) completed [email or web address] Information not available 05/06/2023 15:55:32 Procedure Notes None recorded. Medical Equipment None Reported. Allergies Allergen ID Allergen Name Allergen Category Reaction Reaction Severity Criticality Documentation Date Start Date Code Code System Note Provider Name and Address Organization Details Recorded Time 33 Singulair medicatio n Not available Not available Not available 12/31/2022 43940 9 RxNorm angry Not Available [facility] 05:12:42 Medications Name Sig Start Date Stop Date Status Note LastModified by Organization Details LastModified Time amoxicillin 500 mg capsule Take 1 capsule every 8 hours by oral route for 10 days. active Not Available Not Available No t Available hydrocodone 7.5 mg-ibuprofe n 200 mg tablet TK 1 T PO Q 6 TO 8 H PRF PAIN CONTROL. NOT TO EXCEED 5 TS PER DAYS 08/25 completed Not Available Not Available Not Available bupropion HCl SR 150 mg tablet,12 hr sustained-r elease Take 1 tablet twice a day by oral route as directed. 10/22 completed Not Available Not Available Not Available clonidine HCl 0.1 mg tablet TAKE 1 TABLET BY MOUTH TWICE A DAY active Not Available Not Available No t Available prednisone 10 mg tablet Take by oral route. take [id number], [id number], 8e3rify active Not Available Not Available No t Available paroxetine 10 mg tablet TAKE ONE TABLET DAILY 05/12 completed Not Available Not Available Not Available cefuroxime axetil 250 mg tablet TAKE 1 TABLET BY MOUTH TWICE A DAY 10/15 completed Not Available Not Available Not Available cetirizine 10 mg tablet TAKE ONE TABLET BY MOUTH EVERY DAY active Not Available Not Available No t Available azithromyci n 250 mg tablet Take 1 dose pk by oral route as directed. 11/05 completed Not Available Not Available Not Available alprazolam 1 mg tablet TAKE 1 TABLET BY MOUTH TWICE A DAY active Not Available Not Available No t Available benzonatate 200 mg capsule Take 1 capsule 3 times a day by oral route as needed. active Not Available Not Available No t Available ondansetron HCl 8 mg tablet Take 1 tablet every 8 hours by oral route for 2 days. active Not Available Not Available No t Available Medrol (Chad) 4 mg tablets in a dose pack take decreasin g doses as directed 05/28 completed Not Available Not Available Not Available prednisone 20 mg tablet Take 2 tablets every day by oral route in the morning for 5 days. active Not Available Not Available No t Available sumatriptan 50 mg tablet take 1 at onset of migraine may repeat in 2hrs only 2 in 23hrs. active Not Available Not Available No t Available metronidazo le 500 mg tablet TAKE 1 TABLET 3 TIMES A DAY BY ORAL ROUTE. active Not Available Not Available No t Available fexofenadin e 180 mg tablet TAKE ONE TABLET DAILY 09/02 completed Not Available Not Available Not Available oxycodone-a cetaminophe n 5 mg-325 mg tablet 09/02 completed Not Available Not Available Not Available Guaiatussin AC 10 mg-100 mg/5 mL oral liquid TK 10 ML PO Q 6 H PRN FOR COUGH 07/07 completed Not Available Not Available Not Available ciprofloxac in 0.3 % eye drops active Not Available Not Available No t Available benzonatate 100 mg capsule TK 1 TO 2 CS PO TID 07/07 completed Not Available Not Available Not Available hydrocodone 7.5 mg-acetamin ophen 325 mg tablet 09/02 completed Not Available Not Available Not Available pantoprazol e 40 mg tablet,billy yed release TAKE 1 TABLET BY MOUTH EVERY DAY BEFORE MEALS active Not Available Not Available No t Available oseltamivir 75 mg capsule Take 1 capsule twice a day by oral route for 5 days. 05/12 completed Not Available Not Available Not Available neomycin-po lymyxin-dex ameth 3.5 mg/mL-10,00 0 unit/mL-0.1 % eye drops active Not Available Not Available Not Available Cipro 500 mg tablet Take 1 tablet every 12 hours 01/12 completed Not Available Not Available Not Available omeprazole 20 mg capsule,del ayed release Take 1 capsule every day by oral route. 09/02 completed Not Available Not Available Not Available diclofenac sodium 75 mg tablet,billy yed release Take 1 tablet(s) twice a day by oral route. active Not Available Not Available No t Available Bentyl 10 mg capsule Take 1 capsule 3 times a day by oral route as needed. 09/11 completed Not Available Not Available Not Available montelukast 10 mg tablet Take 1 tablet every day by oral route. 02/14 completed Not Available Not Available Not Available mupirocin 2 % topical ointment 06/30 completed Not Available Not Available Not Available azelastine 137 mcg (0.1 %) nasal spray Dewey 2 sprays twice a day by intranasa l route. 09/11 completed Not Available Not Available Not Available benzoyl peroxide 5 % topical cleanser 09/02 completed Not Available Not Available Not Available cefuroxime axetil 500 mg tablet Take 1 tablet every 12 hours by oral route for 10 days. active Not Available Not Available No t Available levofloxaci n 500 mg tablet TAKE 1 TABLET BY MOUTH EVERY DAY active Not Available Not Available No t Available oxycodone-a cetaminophe n 7.5 mg-325 mg tablet 08/14 completed Not Available Not Available Not Available hydrocodone 10 mg-chlorphe niramine 8 mg/5 mL oral susp extend.rel 12hr TAKE 5 ML BY MOUTH TWICE A DAY NEEDED 09/11 completed Not Available Not Available Not Available ondansetron 4 mg disintegrat ing tablet 09/02 completed Not Available Not Available Not Available fluticasone propionate 50 mcg/actuati on nasal spray,suspe nsion SPRAY 2 SPRAYS INTO EACH NOSTRIL EVERY EVENING 05/06 completed Not Available Not Available Not Available amoxicillin 875 mg-potassiu m clavulanate 125 mg tablet TAKE 1 TABLET TWICE A DAY FOR 10 DAYS. 04/13 completed Not Available Not Available Not Available clindamycin 1 % lotion 09/02 completed Not Available Not Available Not Available Laxative (bisacodyl) 5 mg tablet,billy yed release 05/06 completed Not Available Not Available Not Available erythromyci n with ethanol 2 % topical gel 05/28 completed Not Available Not Available Not Available Nasacort active Not Available Not Avai lable Not Available ProAir HFA 90 mcg/actuati on aerosol inhaler INHALE 2 PUFFS PO 3 TO 4 TIMES A DAY 07/07 completed Not Available Not Available Not Available omeprazole 20 mg tablet,billy yed release Take 1 tablet every day by oral route. 09/02 completed Not Available Not Available Not Available GaviLyte-G 236 gram-22.74 gram-6.74 gram-5.86 gram oral solution 05/06 completed Not Available Not Available Not Available cetirizine 10 mg capsule Take every day by oral route. 10/24 completed Not Available Not Available Not Available Fluvirin 45 mcg (15 mcg x 3)/0.5 mL intramuscul ar suspension active Not Available Not Available N ot Available Nexium 24HR 08/14 completed Not Available Not Available Not Available Wegovy 0.25 mg/0.5 mL subcutaneou s pen injector inject 0.25mg weekly for 4wks then to go 0.5mg weekly for 4wks 2022 active Not Available Not Available Not Avai lable Vitals Date Recorded Body mass index (BMI) Body height Heart rate Body temperature Body weight Systolic blood pressure Diastolic blood pressure Provider Name and Address Organization Details Last Updated DateTime 3 42 kg/m2 167.64 cm 97 /min 97.5 [degF] 188231. 02 g 136 mm[Hg] 84 mm[Hg] Not Available [facility] 3 05:00:15 Date Recorded Body mass index (BMI) Body height Heart rate Body temperature Body weight Systolic blood pressure Diastolic blood pressure Provider Name and Address Organization Details Last Updated DateTime 3 41.6 kg/m2 167.64 cm 101 /min 97.7 [degF] 778312. 83 g 128 mm[Hg] 78 mm[Hg] Not Available [facility] 3 05:00:15 Date Recorded Body mass index (BMI) Body height Heart rate Body temperature Body weight Systolic blood pressure Diastolic blood pressure Provider Name and Address Organization Details Last Updated DateTime 3 41.5 kg/m2 167.64 cm 78 /min 97.8 [degF] 620005. 24 g 118 mm[Hg] 86 mm[Hg] Not Available [facility] 3 05:00:15 Date Recorded Body height Body mass index (BMI) Body weight Body temperature Heart rate Systolic blood pressure Diastolic blood pressure Provider Name and Address Organization Details Last Updated DateTime 3 167.64 cm 41.6 kg/m2 335643. 83 g 97.5 [degF] 85 /min 130 mm[Hg] 88 mm[Hg] Cristy Khadar Sachi [place] [facility] [employer] [facility] 3 16:33:45 Date Recorded Body height Body mass index (BMI) Body weight Body temperature Heart rate Systolic blood pressure Diastolic blood pressure Provider Name and Address Organization Details Last Updated DateTime 3 167.64 cm 43.9 kg/m2 082294. 12 g 97.8 [degF] 82 /min 120 mm[Hg] 84 mm[Hg] Crsity Rubalcava Sachi [place] [facility] [employer] [facility] 3 10:04:45 Date Recorded Body height Body mass index (BMI) Body weight Body temperature Oxygen saturation Oxygen saturation in Arterial blood by Pulse oximetry Heart rate Systolic blood pressure Diastolic blood pressure Provider Name and Address Organization Details Last Updated DateTime 4 167.64 cm 43.9 kg/m2 572878. 12 g 96.7 [degF] 97 % 97 % 92 /min 129 mm[Hg] 79 mm[Hg] Halle Pierce MA [facility] [employer] [facility] 4 10:05:51 Social History Question Answer Notes LastModified by Organization Details LastModified Time Tobacco Smoking Status Former Smoker quit 10/2019 RENE Giron, [place] [facility] [employer] [facility] 11/16/2023 09:58:55 Do You Have An Advance Directive? No [id number] Information not available 12/31/2022 What Is Your Level Of Alcohol Consumption? Occasional [id number] Information not available 12/31/2022 Do You Wear A Helmet When Biking? No [email or web address] Information not available 11/16/2023 What Is Your Level Of Caffeine Consumption? Moderate [id number].[id number] [id number] Information not available 12/31/2022 How Much Tobacco Do You Chew? None MIGRATION.[id number] [id number] Information not available 12/31/2022 In The 14 Days Before Symptom Onset, Have You Had Close Contact With A Laboratory-conf irmed COVID-19 While That Case Was Ill? No [email or web address] Information not available 11/16/2023 In The 14 Days Before Symptom Onset, Have You Had Close Contact With A Person Who Is Under Investigation For COVID-19 While That Person Was Ill? No [email or web address] Information not available 11/16/2023 What Type Of Diet Are You Following? REGULAR MIGRATION.[id number] [id number] Information not available 12/31/2022 Which Illicit Or Recreational Drugs Have You Used? Marijuana [email or web address] Information not available 11/16/2023 Do You Or Have You Ever Used E-cigarettes Or Vape? Never Used Electronic Cigarettes [email or web address] Information not available 11/16/2023 What Is Your Occupation? Teacher [email or web address] Information not available 11/16/2023 Have There Been Any Changes To Your Family Or Social Situation? No [email or web address] Information not available 11/16/2023 When Did You Quit Smoking? 1-5yearssincelastc igarette [email or web address] Information not available 11/16/2023 Are There Any Guns Present In Your Home? No [email or web address] Information not available 11/16/2023 Where Do You Live? SingleLevelHouse [email or web address] Information not available 11/16/2023 Do You Have A Medical Power Of Utilization Management Rn? No [email or web address] Information not available 11/16/2023 What Was The Date Of Your Most Recent Tobacco Screening? 05/06/2023 Information not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
--- OUTSIDE RECORDS SUMMARY | 2025-02-01 16:45 | XMS_ITS | Data Portability ---
Author Organization [facility] Madyson Funez Address [address] [place] [address] Care Team Providers Care Operations Recruiter Name Role Phone GREG WALSH Primary Care Provider [phone] Assessment Encounter Date Assessment Date Assessment LastModified by Organization Details LastModified Time 04/26/2024 04/26/2024 blood work has been ordered we will try to get a GLP 1 agent she has been on multiple diets in the past to no avail obtain old records continue current therapy see me in 4 months [email or web address] Not available 05/09/2024 22:14:03 08/23/2024 08/23/2024 blood work continue current therapy routine arabic teacher appointment anxiety hypertension GERD discussed healthy lifestyle care instructions follow up 6 months Not available 08/23/2024 22:31:06 Plan of Treatment Reminders Order Date Submit Date Provider Last Modified By Organization Details Last Modified Time Details Appointments ANY 15 2024 02:00P Juan Walsh MD Not available Not available Not available ANY 15 2024 09:30A Juan Walsh MD Not available Not available Not available Lab lipid panel, serum 2023 ALAN [facility], [address], [place], [address], 08/24/2024 08:30:59 CBC w/ auto diff 2023 ALAN [facility], [address], [place], [address], 08/24/2024 08:31:03 CMP, serum or plasma 2023 024 ALAN [facility], [address], [place], [address], 08/24/2024 08:31:00 HbA1c (hemoglob in A1c), blood 2023 024 ALAN [facility], [address], [place], [address], 08/24/2024 08:31:02 HbA1c (hemoglob in A1c), blood [facility]23 [facility], [address], [place], [address], 09/07/2024 15:15:48 lipid panel, serum 2023 024 [facility], [address], [place], [address], 09/07/2024 15:15:47 CBC w/ auto diff 2023 024 [facility], [address], [place], [address], 09/07/2024 15:15:47 CMP, serum or plasma 2023 024 [facility], [address], [place], [address], 09/07/2024 15:15:47 TSH + free T4, serum 2023 024 [email or web address], [address], [place], [address], 09/08/2024 17:27:56 T3, free, serum or plasma 2023 024 [email or web address], [address], [place], [address], 09/08/2024 17:28:09 Referral gynecolog ist referral 2023 024 pete Montiel MD, [address] [facility] [address], [place], [address], 01/30/2025 12:28:53 Procedures None recorded. Surgeries None recorded. Imaging MAMMO, screening , bilateral 2023 024 lisa [facility], [address], [place], [address], 12/05/2024 09:20:37 Medication Orders Wegovy 0.25 mg/0.5 mL subcutane ous pen injector 2023 024 [facility] [id number], [address], 04/27/2024 13:41:09 Wegovy 0.5 mg/0.5 mL subcutane ous pen injector 2023 024 [email or web address] [facility] [id number], [address], 04/27/2024 13:41:09 Patient TargetsNo targets recorded. Patient InstructionsNo instructions recorded. Reason for Referral Bean Snapper Referral for Gy necologic examination Referring Physician: Greg Walsh, Internal Medicine, Encounter Date: 08/23/2024 Results Created Date Observation Date Name Description Value Unit Range Abnormal Flag Note LastModifiedBy Organization Detail LastModifiedTime 08/23/20 24 08/24/2024 LIPID PANEL cholesterol, total 219 mg/dL 100-19 9 above high normal Not Available [facility] ([facility]) [address] [facility] [address], [place], [address], 08/24/2024 08:30:59 08/23/20 24 08/24/2024 LIPID PANEL triglyceride s 198 mg/dL 0-149 above high normal Not Available [facility] ([facility]) [address] [facility] [address], [place], [address], 08/24/2024 08:30:59 08/23/2008/24/2024 LIPID PANEL HDL cholesterol 54 mg/dL >39 Not Available [facility]) [address] [facility] [address], [place], [address], 08/24/2024 08:30:59 08/23/2008/24/2024 LIPID PANEL VLDL cholesterol nidia 35 mg/dL 5-40 Not Available [facility] ([facility]) [address] [facility], [place], [address], 08/24/2024 08:30:59 08/23/2008/24/2024 LIPID PANEL LDL chol calc ([facility]) 130 mg/dL 0-99 above high normal Not Available [facility] ([facility]) [address] [facility], [place], [address], 08/24/2024 08:30:59 08/23/2008/24/2024 COMP. METAB OLIC PANEL (14) glucose 82 mg/dL 70-99 Not Available [facility] ([facility]) [address] [place], [address], 08/24/2024 08:31:00 08/23/20 24 08/24/2024 COMP. METAB OLIC PANEL (14) BUN 13 mg/dL 6-24 Not Available [facility] ([facility]) [address] [facility], [place], [address], 08/24/2024 08:31:00 08/23/20 24 08/24/2024 COMP. METAB OLIC PANEL (14) creatinine 0.88 mg/dL 0.57-1 .00 Not Available [facility] ([facility]) [address] [place], [address], 08/24/2024 08:31:00 08/23/20 24 08/24/2024 COMP. METAB OLIC PANEL (14) eGFR 83 mL/mi n/1.7 3 >59 Not Available [facility] ([facility]) [address] [facility] [place], [address], 08/24/2024 08:31:00 08/23/20 24 08/24/2024 COMP. METAB OLIC PANEL (14) BUN/creatini ne ratio 15 9-23 Not Available [facility] ([facility]) [address] [facility] [place], [address], 08/24/2024 08:31:00 08/23/20 24 08/24/2024 COMP. METAB OLIC PANEL (14) sodium 139 mmol/ L 134-14 4 Not Available [facility] ([facility]) [address] [place], [address], 08/24/2024 08:31:00 08/23/20 24 08/24/2024 COMP. METAB OLIC PANEL (14) potassium 4.4 mmol/ L 3.5-5. 2 Not Available [facility] ([facility]) [address] [place], [address], 08/24/2024 08:31:00 08/23/20 24 08/24/2024 COMP. METAB OLIC PANEL (14) chloride 100 mmol/ L 96-106 Not Available [facility] ([facility]) [address] [place], [address], 08/24/2024 08:31:00 08/23/20 24 08/24/2024 COMP. METAB OLIC PANEL (14) carbon dioxide, total 23 mmol/ L 20-29 Not Available [facility] ([facility]) [address] [place], [address], 08/24/2024 08:31:00 08/23/20 24 08/24/2024 COMP. METAB OLIC PANEL (14) calcium 9.6 mg/dL 8.7-10 .2 Not Available [facility] ([facility]) [address] [place], [address], 08/24/2024 08:31:00 08/23/2008/24/2024 COMP. METAB OLIC PANEL (14) protein, total 6.9 g/dL 6.0-8. 5 Not Available [facility] ([facility]) [address] [facility] [place], [address], 08/24/2024 08:31:00 08/23/2008/24/2024 COMP. METAB OLIC PANEL (14) albumin 4.4 g/dL 3.9-4. 9 Not Available [facility] ([facility]) [address] [facility] [place], [address], 08/24/2024 08:31:00 08/23/20 24 08/24/2024 COMP. METAB OLIC PANEL (14) globulin, total 2.5 g/dL 1.5-4. 5 Not Available [facility] ([facility]) [address] [facility] [place], [address], 08/24/2024 08:31:00 08/23/2008/24/2024 COMP. METAB OLIC PANEL (14) bilirubin, total 0.3 mg/dL 0.0-1. 2 Not Available [facility] ([facility]) [address] [facility] [place], [address], 08/24/2024 08:31:00 08/23/2008/24/2024 COMP. METAB OLIC PANEL (14) alkaline phosphatase 86 IU/L 44-121 Not Available [facility] ([facility]) [address] [facility] [place], [address], 08/24/2024 08:31:00 08/23/2008/24/2024 COMP. METAB OLIC PANEL (14) AST (SGOT) 16 IU/L 0-40 Not Available [facility] ([facility]) [address] [facility] [place], [address], 08/24/2024 08:31:00 08/23/20 24 08/24/2024 COMP. METAB OLIC PANEL (14) ALT (SGPT) 18 IU/L 0-32 Not Available [facility] ([facility]) [address] [facility], [place], [address], 08/24/2024 08:31:00 08/23/2008/24/2024 HEMOG LOBIN A1C hemoglobin A1C 5.7 % 4.8-5. 6 above high normal Predi abete s: 5.7 - 6.4 Diabe tahir: >6.4 Glyce avery contr ol for adult s with diabe tahir: <7.0 Not Available [facility] ([facility]) [address] [facility], [place], [address], 08/24/2024 08:31:02 08/23/2008/24/2024 CBC WITH DIFFE RENTI AL/PL ATELE T WBC 11.6 x10e3 /uL 3.4-10 .8 above high normal Not Available [facility] ([facility]) [address] [place], [address], 08/24/2024 08:31:03 08/23/2008/24/2024 CBC WITH DIFFE RENTI AL/PL ATELE T RBC 4.65 x10e6 /uL 3.77-5 .28 Not Available [facility] ([facility]) [address] [place], [address], 08/24/2024 08:31:03 08/23/20 24 08/24/2024 CBC WITH DIFFE RENTI AL/PL ATELE T hemoglobin 14.2 g/dL 11.1-1 5.9 Not Available [facility] ([facility]) [address] [place], [address], 08/24/2024 08:31:03 08/23/20 24 08/24/2024 CBC WITH DIFFE RENTI AL/PL ATELE T hematocrit 41.9 % 34.0-4 6.6 Not Available [facility] ([facility]) [address] [facility], [place], [address], 08/24/2024 08:31:03 08/23/2008/24/2024 CBC WITH DIFFE RENTI AL/PL ATELE T MCV 90 fL 79-97 Not Available [facility] ([facility]) [address] [facility], [place], [address], 08/24/2024 08:31:03 08/23/2008/24/2024 CBC WITH DIFFE RENTI AL/PL ATELE T MCH 30.5 pg 26.6-3 3.0 Not Available [facility] ([facility]) [address] [facility], [place], [address], 08/24/2024 08:31:03 08/23/2008/24/2024 CBC WITH DIFFE RENTI AL/PL ATELE T MCHC 33.9 g/dL 31.5-3 5.7 Not Available [facility] ([facility]) [address] [facility], [place], [address], 08/24/2024 08:31:03 08/23/2008/24/2024 CBC WITH DIFFE RENTI AL/PL ATELE T RDW 12.3 % 11.7-1 5.4 Not Available [facility] ([facility]) [address] [facility], [place], [address], 08/24/2024 08:31:03 08/23/2008/24/2024 CBC WITH DIFFE RENTI AL/PL ATELE T platelets 319 x10e3 /uL 150-45 0 Not Available [facility] ([facility]) [address] [facility], [place], [address], 08/24/2024 08:31:03 08/23/2008/24/2024 CBC WITH DIFFE RENTI AL/PL ATELE T neutrophils 61 % notest ab. Not Available [facility] ([facility]) [address] [facility], [place], [address], 08/24/2024 08:31:03 08/23/2008/24/2024 CBC WITH DIFFE RENTI AL/PL ATELE T lymphs 28 % notest ab. Not Available [facility] ([facility]) [address] [facility], [place], [address], 08/24/2024 08:31:03 08/23/2008/24/2024 CBC WITH DIFFE RENTI AL/PL ATELE T monocytes 8 % notest ab. Not Available [facility] ([facility]) [address] [facility], [place], [address], 08/24/2024 08:31:03 08/23/20 24 08/24/2024 CBC WITH DIFFE RENTI AL/PL ATELE T eos 1 % notest ab. Not Available [facility] ([facility]) [address] [facility], [place], [address], 08/24/2024 08:31:03 08/23/2008/24/2024 CBC WITH DIFFE RENTI AL/PL ATELE T basos 1 % notest ab. Not Available [facility] ([facility]) [address] [facility], [place], [address], 08/24/2024 08:31:03 08/23/2008/24/2024 CBC WITH DIFFE RENTI AL/PL ATELE T neutrophils (absolute) 7.2 x10e3 /uL 1.4-7. 0 above high normal Not Available [facility] ([facility]) [address] [facility], [place], [address], 08/24/2024 08:31:03 08/23/2008/24/2024 CBC WITH DIFFE RENTI AL/PL ATELE T lymphs (absolute) 3.3 x10e3 /uL 0.7-3. 1 above high normal Not Available [facility] ([facility]) [address] [facility], [place], [address], 08/24/2024 08:31:03 08/23/20 24 08/24/2024 CBC WITH DIFFE RENTI AL/PL ATELE T monocytes(ab solute) 0.9 x10e3 /uL 0.1-0. 9 Not Available [facility] ([facility]) [address] [facility], [place], [address], 08/24/2024 08:31:03 08/23/20 24 08/24/2024 CBC WITH DIFFE RENTI AL/PL ATELE T eos (absolute) 0.1 x10e3 /uL 0.0-0. 4 Not Available [facility] ([facility]) [address] [facility], [place], [address], 08/24/2024 08:31:03 08/23/20 24 08/24/2024 CBC WITH DIFFE RENTI AL/PL ATELE T baso (absolute) 0.1 x10e3 /uL 0.0-0. 2 Not Available [facility] ([facility]) [address] [facility], [place], [address], 08/24/2024 08:31:03 08/23/20 24 08/24/2024 CBC WITH DIFFE RENTI AL/PL ATELE T immature granulocytes 1 % notest ab. Not Available [facility] ([facility]) [address] [facility], [place], [address], 08/24/2024 08:31:03 08/23/20 24 08/24/2024 CBC WITH DIFFE RENTI AL/PL ATELE T immature grans (abs) 0.1 x10e3 /uL 0.0-0. 1 Not Available [facility] ([facility]) [address] [facility], [place], [address], 08/24/2024 08:31:03 02/02/20 25 elect rocar diogr am No observ ation record ed. ALAN In-Office Order Internal Use Only DO Not Attach Compendium DO Not Attach Compendium, Do Not Delete/merge, [id number] 02/01/2025 16:55:10 02/02/2002/01/2025 angel acosta am No observ ation record ed. BARCODE In-Office Order Internal Use Only DO Not Attach Compendium DO Not Attach Compendium, Do Not Delete/merge, [id number] 02/01/2025 17:12:09 Result Notes None recorded. Problems Name Problem SNOMED Code Status Onset Date Resolution Date Notes Provider Name and Address Organization Details Recorded Time Overweight 386644956 Active 2023 Tamika Soriano [place] null, [place] [facility] 16:18:29 Essential hypertension 01868931 Active 2023 Tamika Soriano [place], [place] [facility] 16:18:31 Anxiety 03457891 Active 2023 Greg Walsh MD Attn: Kacy sewell,[address] [place], [address], [place] [facility] 22:31:11 Headache 51825477 Active 2024 Tamika Soriano [place], [place] [facility] 16:29:12 Problem Notes None recorded. Procedures Surgical History Date Name Laterality Status Provider Name and Address Organization Details Recorded Time 11/02/19 09 partial hysterectomy completed Michelle Hernandez MA [facility] 04/26/2024 15:23:23 11/02/19 07 Dilation and Curettage completed Michelle Hernandez MA [facility] 04/26/2024 15:22:50 11/02/19 05 appendectomy completed Michelle Hernandez MA [place] [facility] 04/26/2024 15:21:57 11/02/19 03 tonsillectomy completed TUSHAR Martines [facility] 04/26/2024 15:22:38 11/02/18 84 ligation of bilateral fallopian tubes completed TUSHAR Martines [facility] 04/26/2024 15:23:54 11/02/18 84 adenoid excision completed TUSHAR Martines [facility] 04/26/2024 15:24:56 cholecystostomy completed Michelle Hernandez [place] [facility] 04/26/2024 15:22:22 Imaging Results Imaging Date Name Status LastModified by Organization Details LastModified Time 02/01/2025 electrocardiogram completed ALAN In-Offi ce Order Internal Use Only DO Not Attach Compendium DO Not Attach Compendium, Do Not Delete/merge, [id number] 02/01/2025 16:55:10 02/01/2025 electrocardiogram completed BARCODE In-Offi ce Order Internal Use Only DO Not Attach Compendium DO Not Attach Compendium, Do Not Delete/merge, [id number] 02/01/2025 17:12:09 Procedure Notes None recorded. Medical Equipment None Reported. Allergies No known drug allergies Medications Name Sig Start Date Stop Date Status Note LastModified by Organization Details LastModified Time clonidine HCl 0.1 mg tablet TAKE 1 TABLET BY MOUTH TWICE A DAY 2023 active Not Available Not Available Not Avai lable alprazolam 1 mg tablet TAKE 1 TABLET BY MOUTH TWICE A DAY active Not Available Not Available No t Available metronidazo le 500 mg tablet TAKE 1 TABLET 3 TIMES A DAY BY ORAL ROUTE. 03/30 completed Not Available Not Available Not Available ciprofloxac in 500 mg tablet TAKE 1 TABLET BY MOUTH EVERY 12 HOURS 03/30 completed Not Available Not Available Not Available pantoprazol e 40 mg tablet,billy yed release TAKE 1 TABLET BY MOUTH EVERY DAY active Not Available Not Available No t Available erythromyci n 5 mg/gram (0.5 %) eye ointment APPLY 1 CM RIBBON INTO THE LOWER CONJUNCTI JESSEE SAC(S) IN THE AFFECTED EYE(S) 3 TIMES PER DAY active Not Available Not Available No t Available levofloxaci n 500 mg tablet TAKE 1 TABLET BY MOUTH EVERY DAY 03/30 completed Not Available Not Available Not Available Laxative (bisacodyl) 5 mg tablet,billy yed release TAKE 6 TABLETS BY MOUTH ONE DOSE AT 8AM ON 02/02/202303/30 completed Not Available Not Available Not Available bupropion HCl XL 150 mg 24 hr tablet, extended release TAKE 1 TABLET BY MOUTH EVERY DAY DIRECTED active Not Available Not Available No t Available GaviLyte-G 236 gram-22.74 gram-6.74 gram-5.86 gram oral solution MIX AND DRINK 1/2 OF LIQUID AT 5 PM ON 02/02/2023 AND THE OTHER 1/2 ON 02/03/202303/30 completed Not Available Not Available Not Available Wegovy 0.25 mg/0.5 mL subcutaneou s pen injector inject 0.25mg weekly for 4wks then go to 0.5mg weekly for 4wks 2023 active Not Available Not Available Not Avai lable Wegovy 0.5 mg/0.5 mL subcutaneou s pen injector inject 0.5mg weekly for 4wks then go to 1mg weekly for 4wks 2023 active Not Available Not Available Not Avai lable Mounjaro 2.5 mg/0.5 mL subcutaneou s pen injector inject 2.5mg weekly for 4wks then go to 5mg 2023 active Not Available Not Available Not Avai lable Vitals Date Recorded Body height Body mass index (BMI) Body weight Oxygen saturation Oxygen saturation in Arterial blood by Pulse oximetry Heart rate Systolic blood pressure Diastolic blood pressure Provider Name and Address Organization Details Last Updated DateTime 4 167.64 cm 43.6 kg/m2 824912. 94 g 97 % 97 % 81 /min 124 mm[Hg] 82 mm[Hg] Michelle Hernandez MA [place] - [facility] 4 15:31:23 Date Recorded Body height Body mass index (BMI) Body weight Heart rate Oxygen saturation Oxygen saturation in Arterial blood by Pulse oximetry Systolic blood pressure Diastolic blood pressure Provider Name and Address Organization Details Last Updated DateTime 4 167.64 cm 45.6 kg/m2 859601. 2 g 91 /min 95 % 95 % 124 mm[Hg] 70 mm[Hg] Shilpi Mcarthur [place] [facility] 4 16:11:45 Date Recorded Body height Body mass index (BMI) Body weight Heart rate Oxygen saturation Oxygen saturation in Arterial blood by Pulse oximetry Systolic blood pressure Diastolic blood pressure Provider Name and Address Organization Details Last Updated DateTime 5 167.64 cm 45.3 kg/m2 099227. 3 g 94 /min 97 % 97 % 124 mm[Hg] 70 mm[Hg] Shilpi Mcarthur MA [place] - [facility] 15:24:11 Social History Question Answer Notes LastModified by Organizat ion Details LastModified Time Tobacco Smoking Status Never Smoker TUSHAR Martines, [place] - [facility] 04/26/2024 15:19:44 What Is Your Level Of Alcohol Consumption? Occasional 2 Per Year Information not available 04/26/2024 Are You Blind Or Do You Have Difficulty Seeing? No Information not available 04/26/2024 What Is Your Level Of Caffeine Consumption? None Information not available 04/26/2024 In The 14 Days Before Symptom Onset, Have You Had Close Contact With A Laboratory-confir med COVID-19 While That Case Was Ill? No Information not available 08/23/2024 In The 14 Days Before Symptom Onset, Have You Had Close Contact With A Person Who Is Under Investigation For COVID-19 While That Person Was Ill? No Information not available 08/23/2024 Have You Been To An Area Known To Be High Risk For COVID-19? No Information not available 08/23/2024 Are You Currently Employed? Yes Information not available 04/26/2024 Are You Deaf Or Do You Have Serious Difficulty Hearing? No Information not available 04/26/2024 What Type Of Diet Are You Following? REGULAR Information not available 04/26/2024 What Is Your Occupation? Teacher Information not available 04/26/2024 Are There Any Guns Present In Your Home? No Information not available 08/23/2024 What Was The Date Of Your Most Recent Tobacco Screening? 02/01/2025 Information not available 02/01/2025 What Is Your Relationship Status? Information not available 04/26/2024 Do You Use Your Seat Belt Or Car Seat Routinely? Yes Information not available 04/26/2024 Do You Have Smoke And Carbon Monoxide Detectors In Your Home? Yes Information not available 04/26/2024 Do You Feel Stressed (tense, Restless, Nervous, Or Anxious, Or Unable To Sleep At Night)? [id number] Information not available 04/26/2024 Do You Use Any Illicit Or Recreational Drugs? Yes Information not available 04/26/2024 Do You Use Sunscreen Routinely? No Information not available 04/26/2024 Has Tobacco Cessation Counseling Been Provided? No Information not available 04/26/2024 Do You Or Have You Ever Used Any Other Forms Of Tobacco Or Nicotine? No Information not available 04/26/2024 Sex: Female Functional Status Question Answer Note LastModified by Organization D etails LastModified Time Are you able to care for yourself? Yes Information n ot available 04/26/2024 Mental Status None recorded. Family History Relationship Description Onset Age of this Age Resolved Age Notes LastModified by Organization Details LastModified Time Mother Disorder of thyroid gland bandersonma Not available 04/03 15:17:39 Mother Hypercholest erolemia bandersonma Not available 04/03 15:18:56 Mother Malignant tumor of lung bandersonma Not available 04/03 15:19:15 Father Heart disease bandersonma Not available 04/03 15:18:16 Father Hypertensive disorder bandersonma Not available 04/03 15:18:46 Father Hypercholest erolemia bandersonma Not available 04/03 15:18:56 Medical History Condition Response Coronary Artery Disease N Other N High Blood Pressure N Atrial Fibrillation N Thyroid Problems N Kidney or Bladder Problems N GI Problems N Depression N COPD N Blood Clots N Skin Problems N Anemia N Heart Attack (DE) N Diabetes N Anxiety Disorder Y Muscle, Joint, or Bone Problems N Seizures/Epilepsy N Acid Reflux (GERD) Y Cancer N Stroke N Asthma N Allergies Y High Cholesterol N Hepatitis N Liver Disease N Headaches Y Osteoporosis N Heart Failure N Gynecological History Statement/Question Response Current Control Method Hysterectom y Obstetrics History GPAL:G 0 P 0 0 0 0 Past Encounters Encounter ID Performer Location Encounter Start Date Encounter Closed Date Diagnosis/Indication Diagnosis SNOMED-CT Code Diagnosis ICD10 Code Diagnosis Note [id number] MD Tony Dubose (Adult Med) [address] [place] [phone] 04/26/2024 14:57:29 04/26/2024 16:22:42 Essential hypertension 33652603 I10 Overweight 294262608 E66 .3 Anxiety 44926214 F41.9 Gastroesop hageal reflux disease without esophagitis 133982154 K21.9 [id number] [facility] [address] [place] [address] 08/23/2024 15:58:05 08/23/2024 17:08:29 Essential hypertension 51870453 I10 Diabetes m ellitus screening 942637235 Z13.1 Screening mammography 24 572897 Z12.31 Gynecologi c examination 05985307 Z01.[id number] [facility] (Adult Med) [address] [place] [address] 02/01/2025 14:42:43 02/01/2025 16:27:59 Body mass index 30+ - obesity 819543662 Z68.42 Obesity 513736441 E66.9 Headache 86938234 R51.9 Essential hypertension 06047664 I10 Dizziness 178245883 R42 Health Concerns Section Related Observation LastModified by Organization Detai ls LastModified Time None Recorded Concern Status LastModified by Organization Details LastModified Time None Recorded Advance Directives Directive None Recorded Payers Encounter Date Sequence Insurance Name Policy Number Policy Iglesias Covered Member ID Iglesias Member ID Guarantor Name 04/26/2024 1 [facility] [id number] Deloris Rosenthal [id number] Deloris Rosenthal 08/23/2024 1 [facility] [id number] Deloris Rosenthal [id number] Deloris Rosenthal Notes Date Note Type Note Provider Name and Address Organization Details Recorded Time 04/26/2024 text/html hypertension no headache or dizziness overweight we are going to try to do something with caloric restriction and try to get her on a GLP 1 there is no contraindications anxiety has been stable GERD no nausea no vomiting Greg Walsh MD Attn: Accounting,[address] [facility], [place], [address], [facility] 05/09/2024 22:14:18 08/23/2024 text/html hypertension no headache no dizziness she needs arabic teacher for all more referral for well-woman exam anxiety still coping with loss of her aunt that she was very close to and mother with cancer she could not wegovy before her obesity insurance does not cover GLP 1 Greg Walsh MD Attn: Accounting,[address], [place], [address], [facility] 08/23/2024 22:31:29 OBGyn Episode No OBEpisode recorded.
--- OUTSIDE RECORDS SUMMARY | 2025-02-01 16:45 | XMS_ITS | Clinical Summary ---
Author Organization [facility] Address [address] [place] [address] Care Team Providers Care Paralegal Supervisor Name Role Phone Tello Walsh MD Primary Care Provider [phone] Source Comments [facility],non-owned Affiliates and Associated Physician Practices is amultiple site organization consisting of ambulatory clinics and hospital sitesin [place], [place], [place] and [place]. This disclosure is being madepursuant to the Care Everywhere program and may not contain all information available regarding this patient. Last updated 18.[facility] Allergies Active Allergy Reactions Criticality Noted Date Comments Montelukast Other 12/10/2018 Rage Medications * Be aware that medications may not be up to date on this document. Alwaysverify current medications with the patient. Medication Sig Dispensed Refills Start Date End Date Status PARoxetine HCl (PAXIL PO) Take 1 tablet by mouth once daily Active fluticasone propionate (FLONASE) 50 MCG/ACT nasal spray [place] 2 sprays into each nostril once daily Active Fexofenadine HCl (EVERETT PO) Take 1 tablet by mouth once daily Active benzoyl peroxide (BENZAC) 5 % wash Use as wash to face, underarms, groin, and feet daily in shower. 30 day supply. 226 g 11 12/10/2018 Active clindamycin (CLEOCIN) 1 % lotion Apply to affected area on feet and groin daily as needed. 30 day supply. 60 mL 5 12/10/2018 Active Active Problems No known active problems Family History Medical History Relation Name Comments Asthma Neg Hx CVA Neg Hx Cancer - Breast Neg Hx Cancer - Other Neg Hx Cancer - Skin, Melanoma Neg Hx Cancer - Skin, Non Melanoma Neg Hx Eczema Neg Hx Hemophilia Neg Hx Psoriasis Neg Hx Social History Tobacco Use Types Packs/Day Years Used Date Smoking Tobacco: Every Day Smokeless Tobacco: Never Sex and Gender Information Value Date Recorded Sex Assigned at Not on file Gender Identity Not on file Sexual Orientation Not on file Plan of Treatment Health Maintenance Due Date Last Done Comments COLOGUARD (AGES 45-75) - COL ON CA SCREENING 1979 COLON MONITORING 1979 COLONOSCOPY - COLON CA SCREENING 1979 CT COLONOGRAPHY - COLON CA SCREENING 1979 Colorectal Cancer Screening 1979 FIT - COLON CA SCREENING 1979 FLEX SIG - COLON CA SCREENING 1979 LIPID TESTING 1979 MAMMOGRAM 1979 HIV SCREENING 1994 HEPATITIS C SCREENING 09/24/1997 DTAP/TDAP/TD VACCINES (1 - Tdap) 1998 HEPATITIS B VACCINE (1 of 3 - 19+ 3-dose series) 1998 PNEUMOCOCCAL VACCINE (1 of 2 - PCV) 1998 COVID-19 VACCINE (1 - 2023-2 5 season) 2024 INFLUENZA VACCINE (#1) 2024 DEPRESSION SCREENING 11/02/2024 ZOSTER VACCINE (1 of 2) 2029 HIB VACCINE Aged Out No longer eligi ble based on patient's age to complete this topic HPV VACCINE Aged Out No longer eligi ble based on patient's age to complete this topic MENINGOCOCCAL (Group B) VACC INE SHARED DECISION-MAKING Aged Out No longer eligibl e based on patient's age to complete this topic MENINGOCOCCAL GROUPS A/C/Y/W VACCINE Aged Out No longer eligible b ased on patient's age to complete this topic Care Teams Paralegal Supervisor Relationship Specialty Start Date End Date Tello Walsh MD PCP - General 12/03/18
[2025-02-01 17:04] LABS: Hemoglobin 14.6 g/dL (12.0-15.0); Mean Corpuscular HGB Conc 34.8 g/dl (32-36); Mean Corpuscular Hemoglobin 30.6 pg (26-34); Mean Corpuscular Volume 88.1 fl (80-100); Mean Platelet Volume 9.6 fl (7.4-10.4); Platelet Count Result 301 k/mm3 (150-375); Red Blood Count 4.77 M/mm3 (4.2-5.4); Red Cell Distribution Width 12.4 % (11.5-14.5); White Blood Count 11.9 K/mm3 (4.5-10.0)
[2025-02-01 17:17] LABS: Alanine Aminotransferase 26 U/L (6-35); Albumin Level 4.6 g/dL (3.5-5.1); Alkaline Phosphatase 91 U/L (38-126); Anion Gap 10 mmol/L (4-12); Aspartate Amino Transferase 21 U/L (14-36); Bilirubin,Total 0.6 mg/dL (0.2-1.3); Blood Urea Nitrogen 11 mg/dL (7-17); Calcium 9.5 mg/dL (8.4-10.2); Carbon Dioxide 24 mmol/L (22-30); Chloride 103 mmol/L (98-107); Estimated Glomerular Filt Rate > 60; Glucose 96 mg/dL (65-110); Potassium 3.8 mmol/L (3.4-5.0); Sodium 137 mmol/L (137-145)
== END 2025-02-01 16:04 | disposition home or self-care (01) ==
PROVIDERS: PCP Internal Medicine; Visit Provider Internal Medicine
DX: R51.9 Headache, unspecified (principal)
CPT/HCPCS: 36415; 70450; 80053; 85027

== ENCOUNTER 2025-02-16 09:40 | Outpatient (CLI) | payer OTHER, SELFPAY ==
--- NOTE | 2025-02-16 | ECHO_ITS ---
Patient Info Name: Deloris Rosenthal Age: 44 years : 1980 Gender: Female Ht: 66 in Wt: 270 lbs BSA: 2.45 m2 HR: 78 bpm BP: 137 / 97 mmHg Technical Quality: Good Exam Date: 02/16/2025 9:52 AM Exam Location: Echo Lab Patient Status: Outpatient Admit Date: 02/16/2025 Staff Ordering Physician: NicoTello MD Medical Dir: Marleni Painting RDCS Attending Provider: TerryTello MD Exam Type: CA echo doppler color flow Study Info Indications I10 - Essential (primary) hypertension Complete two-dimensional, color flow and Doppler transthoracic echocardiogram is performed. Summary 1. Complete two-dimensional, color flow and Doppler transthoracic echocardiogram is performed. 2. Technically difficult study with poorly visualized views. 3. In the limited views, there appears to be normal biventricular size and systolic function with no significant valvular abnormalities. Left Ventricle The left ventricle is normal in size and systolic function. The left ventricular ejection fraction is visually estimated be 60-65%. Right Ventricle The right ventricle is normal in size and systolic function. Left Atria The left atrium is normal size. Right Atria The right atrium is normal size. Atrial Septum The atrial septum is grossly intact. Aortic Valve The aortic valve is not well visualized. Echo Doppler gradients do not suggest stenosis. Pulmonic Valve The pulmonic valve is not well visualized. There is no pulmonic valve regurgitation by color Doppler. Mitral Valve The mitral valve is opening well. There is no mitral regurgitation. Tricuspid Valve The tricuspid valve is not well visualized. Pericardium/Pleural Pericardium is normal in appearance with no evidence for significant pericardial effusion. Inferior Vena Cava Inferior vena cava is not well visualized. Aorta The aortic root at the level of the sinus of Valsalva measures 3.1 cm in diameter. Left Ventricular Outflow Tract Name Value Normal LVOT 2D LVOT Diameter 1.9 cm LVOT Doppler LVOT Peak Gradient 4 mmHg LVOT Mean Gradient 2 mmHg LVOT VTI 21 cm LVOT VTI/AV VTI Ratio 0.8 LVOT Stroke Volume 64 ml LVOT CO 12.4 l/min LVOT CI 5.0 l/min/m2 Pulmonic Valve Name Value Normal PV Doppler PV Peak Gradient 3 mmHg Mitral Valve Name Value Normal MV Doppler MV Decel [place] 410 cm/s2 MV PHT 58 ms MV Area (PHT) 3.8 cm2 4.0-5.0 MV Diastolic Function MV E Peak Velocity 82 cm/s MV A Peak Velocity 81 cm/s MV E/A 1.0 MV Decel Time 200 ms MV Annular TDI MV E/e' (Septal) 7.8 <=8.0 MV E/e' (Lateral) 8.9 <=8.0 MV E/e' (Average) 8.3 Tricuspid Valve Name Value Normal TV Regurgitation Doppler TR Peak Velocity 177 cm/s TR Peak Gradient 13 mmHg Estimated PAP/RSVP RA Pressure 10 mmHg <=5 PA Systolic Pressure 23 mmHg <36 RV Systolic Pressure 23 mmHg <36 Aorta Name Value Normal Ascending Aorta Ao Root Diameter (MM) 3.4 cm Ao Root Diam Index (MM) 1.4 cm/m2 Aortic Valve Name Value Normal AV Doppler AV Peak Velocity 135 cm/s AV Peak Gradient 7 mmHg AV Mean Gradient 4 mmHg AV VTI 28 cm AV Area (Cont Eq VTI) 2.3 cm2 >=3.0 AV Area (Cont Eq Aristides) 2.2 cm2 AV Regurgitation 2D LVOT Area 3.0 cm2 Ventricles Name Value Normal LV Dimensions 2D/MM IVS Diastolic Thickness (2D) 1.2 cm 0.6-1.0 LVID Diastole (2D) 4.3 cm 3.8-5.2 LVIW Diastolic Thickness (2D) 1.0 cm 0.6-0.9 LVID Systole (2D) 3.0 cm 2.2-3.5 LVOT Diameter 1.9 cm LV Mass (2D Cubed) 157.15 g 67.00-162.00 LV Mass Index (2D Cubed) 64 g/m2 43-95 Relative Wall Thickness (2D) 0.47 LV Fractional Shortening/Ejection Fraction 2D/MM LV Fractional Shortening (2D) 31 % 27-45 LV EF (2D Teicholz) 59 % 54-74 LV Diastolic Volume (4C MOD) 72 ml LV EF (4C MOD) 69 % LV Diastolic Volume (2C MOD) 58 ml LV EF (2C MOD) 62 % LV Diastolic Volume (BP MOD) 67 ml 46-106 LV Diastolic Volume Index (BP MOD) 27 ml/m2 29-61 LV Systolic Volume (BP MOD) 23 ml 14-42 LV Systolic Volume Index (BP MOD) 10 ml/m2 8-24 LV EF (BP MOD) 65 % 54-74 LV Diastolic Length (4C) 7.7 cm LV Systolic Length (4C) 5.4 cm LV Stroke Volume (4C MOD) 50 ml RV Dimensions 2D/MM RVID Diastole (2D) 3.3 cm 2.5-3.5 Atria Name Value Normal LA Dimensions LA Dimension (MM) 4.2 cm 2.7-3.8 LA Volume (4C A-L) 63 ml LA Volume (BP A-L) 55 ml RA Dimensions RA Area (4C) 11.3 cm2 <=18.0 Report Signatures
--- OUTSIDE RECORDS SUMMARY | 2025-02-16 10:15 | XMS_ITS | Data Portability ---
Author Organization [place] - [facility] , [facility] Address [address] [place] [address] Assessment Encounter Date Assessment Date Assessment LastModified [...] (0.5 %) eye ointment 2023 024 [facility] [id number], [address], 12:38:28 Patient TargetsNo targets recorded. Patient Instructions Encounter Date Encounter Id Patient Instructions Last Modified By Organization Details Last Modified Time 09/16/2024 [id number] styes and chalazia: care instructions npalka Not [...] SNOMED-CT Code Diagnosis ICD10 Code Diagnosis Note [id number] GABRIELLE Cook [facility] [address] [place] [address] 09/16/2024 12:24:59 09/16/2024 18:36:02 Chalazion of left upper eyelid [id number] H00.14 Health Concerns Section Related Observation LastModified by Organization Detai ls LastModified Time None Recorded Concern Status LastModified by Organization Details LastModified Time None Recorded Advance Directives Directive None Recorded Payers Encounter Date Sequence Insurance Name Policy Number Policy Iglesias Covered Member ID Iglesias Member ID Guarantor Name 09/16/2024 1 [facility] [id number] Deloris Rosenthal [id number] Deloris Rosenthal 09/16/2024 2 *SELF PAY* [id number] Deloris Rosenthal [id number] Deloris Rosenthal Notes Date Note Type Note [...] changes to vision or pain GABRIELLE Cook [address] [place] [address] [address], [address], [facility] 09/16/2024 12:38:31 OBGyn Episode No OBEpisode recorded.
--- OUTSIDE RECORDS SUMMARY | 2025-02-16 10:16 | XMS_ITS | Data Portability ---
Author Organization [facility] [place], Main Office Address [address] [place] [address] Assessment Encounter Date Assessment Date Assessment LastModified by Organization Details LastModified Time 01/12/2023 01/12/2023 Upper and lower endoscopies continue with current therapy she will see me back in 4 months anxiety discussed refill [email or web address] Diverticulitis dietary strategies discussed Sumatriptan migraines Not available 01/18/2023 13:28:57 05/06/2023 05/06/2023 Will [...] 1 agent for 6 months of not [email or web address] Not available 05/06/2023 10:51:49 11/16/2023 11/16/2023 Continue current therapy follow-up 6 months [email or web address] Not available 11/16/2023 14:19:22 Plan of Treatment Reminders Order Date Submit Date Provider Last Modified By Organization Details Last Modified Time Details Appointments None recorded. Lab glycohemogl obin, total, blood 2022 023 [facility] (Lab), [address] [place], [address], 16:56:21 T3, free, serum or plasma 2022 023 [facility] (Lab), [address] [place], [address], 3 12:57:45 TSH, serum or plasma 2022 023 [facility] (Lab), [address] [place], [address], 3 12:59:57 T4, free, serum 2022 023 [facility] (Lab), [address] [place], [address], 3 12:57:55 CBC w/ auto diff 2022 023 [facility] (Lab), [address] [place], [address], 3 12:22:14 lipid panel, serum 2022 023 [facility] (Lab), [address] [place], [address], 3 12:37:23 CMP, serum or plasma 2022 023 [facility] (Lab), [address] [place], [address], 3 12:37:29 Referral None recorded. Procedures None recorded. Surgeries None recorded. Imaging None recorded. Medication Orders Wegovy 0.25 mg/0.5 mL subcutaneou s pen injector 2022 023 [id number], [address] [place], [address], 11:40:20 Patient TargetsNo targets recorded. Patient InstructionsNo instructions recorded. Reason for Referral None Reported. Results Created Date Observation Date Name Description Value Unit Range Abnormal Flag Note LastModifiedBy Organization Detail LastModifiedTime 11/05/19 23 11/05/2022 COMPR EHENS SHIRLEY METAB OLIC PANEL sodium 138 mmol/ L 137-14 5 Not Available [facility] (Lab) [address] [place], [address], 11/05/2022 22:28:42 11/05/19 23 11/05/2022 COMPR EHENS SHIRLEY METAB OLIC PANEL potassium 4.3 mmol/ L 3.5-5. 1 Not Available [facility] (Lab) [address] [place], [address], 11/05/2022 22:28:42 11/05/19 23 11/05/2022 COMPR EHENS SHIRLEY METAB OLIC PANEL chloride 102 mmol/ L 98-107 Not Available [facility] (Lab) [address] [place], [address], 11/05/2022 22:28:42 11/05/19 23 11/05/2022 COMPR EHENS SHIRLEY METAB OLIC PANEL carbon dioxide 26 mmol/ L 22-30 Not Available [facility] (Lab) [address] [place], [address], 11/05/2022 22:28:42 11/05/19 23 11/05/2022 COMPR EHENS SHIRLEY METAB OLIC PANEL anion gap 14.3 mmol/ L 14-22 Not Available [facility] (Lab) [address] [place], [address], 11/05/2022 22:28:42 11/05/19 23 11/05/2022 COMPR EHENS SHIRLEY METAB OLIC PANEL glucose 87 mg/dL 70-99 Not Available [facility] (Lab) [address] [place], [address], 11/05/2022 22:28:42 11/05/19 23 11/05/2022 COMPR EHENS SHIRLEY METAB OLIC PANEL BUN 10 mg/dL 8-19 Not Available [facility] (Lab) [address] [place], [address], 11/05/2022 22:28:42 11/05/19 23 11/05/2022 COMPR EHENS SHIRLEY METAB OLIC PANEL creatinine 0.65 mg/dL 0.66-1 .25 low Not Available [facility] (Lab) [address] [place], [address], 11/05/2022 22:28:42 11/05/19 23 11/05/2022 COMPR EHENS SHIRLEY METAB OLIC PANEL GFR >60 Refer ence Range : [place] ge GFR Healt hy Adult : >60 [...] or ethni c subgr oups, such as [facility] nics. Outsi de the valid ated sanotsh eters , estim ated GFR is less [...] s/kdo qi/gf r_cal culat or Not Available [facility] (Lab) [address] [place], [address], 11/05/2022 22:28:42 11/05/19 23 11/05/2022 COMPR EHENS SHIRLEY METAB OLIC PANEL alkaline phosphatase 84 U/L 38-126 Not Available [facility] (Lab) [address] [place], [address], 11/05/2022 22:28:42 11/05/19 23 11/05/2022 COMPR EHENS SHIRLEY METAB OLIC PANEL alanine aminotransfe rase 27 U/L 0-35 Not Available [facility] (Lab) [address] [place], [address], 11/05/2022 22:28:42 11/05/19 23 11/05/2022 COMPR EHENS SHIRLEY METAB OLIC PANEL aspartate aminotransfe rase 26 U/L 15-37 Not Available [facility] (Lab) [address] [place], [address], 11/05/2022 22:28:42 11/05/19 23 11/05/2022 COMPR EHENS SHIRLEY METAB OLIC PANEL bilirubin, total 0.80 mg/dL 0.20-1 .30 Not Available [facility] (Lab) [address] [place], [address], 11/05/2022 22:28:42 11/05/19 23 11/05/2022 COMPR EHENS SHIRLEY METAB OLIC PANEL calcium 9.3 mg/dL 8.4-10 .2 Not Available [facility] (Lab) [address] [place], [address], 11/05/2022 22:28:42 11/05/19 23 11/05/2022 COMPR EHENS SHIRLEY METAB OLIC PANEL total protein 7.5 g/dL 6.3-8. 2 Not Available [facility] (Lab) [address] [place], [address], 11/05/2022 22:28:42 11/05/19 23 11/05/2022 COMPR EHENS SHIRLEY METAB OLIC PANEL albumin 4.7 g/dL 3.4-5. 0 Not Available [facility] (Lab) [address] [place], [address], 11/05/2022 22:28:42 11/05/19 23 11/05/2022 COMPR EHENS SHIRLEY METAB OLIC PANEL globulin 2.8 g/dL 2.6-4. 2 Not Available [facility] (Lab) [address] [place], [address], 11/05/2022 22:28:42 11/05/19 23 11/05/2022 COMPR EHENS SHIRLEY METAB OLIC PANEL A/G ratio 1.7 ratio 1.0-2. 0 Not Available [facility] (Lab) [address] [place], [address], 11/05/2022 22:28:42 11/05/19 23 11/05/2022 LIPID PANEL cholesterol 230 mg/dL 140-19 9 high NIH BALBINA NSUS RECOM MENDA TION FOR LOLI STERO L: ADULT CHILD LOW RISK: <200 <170 BORDE RLINE : <200- 239 ----- HIGH RISK: >240 >200 Not Available [facility] (Lab) [address] [place], [address], 11/05/2022 19:00:34 11/05/1911/05/2022 LIPID PANEL triglyceride s 103 mg/dL 0-150 NIH [facility] NSUS REPOR T RECOM MENDA TION FOR TRIGL YCERI FESTUS: ADULT CHILD LOW RISK: <150 ----- BODER LINE: 150-1 99 ----- HIGH RISK: >200 ----- Not Available [facility] (Lab) [address] [place], [address], 11/05/2022 19:00:34 11/05/19 23 11/05/2022 LIPID PANEL HDL cholesterol 57 mg/dL 40- Not Available [facility] (Lab) [address] [place] [address], [address], 11/05/2022 19:00:34 11/05/19 23 11/05/2022 LIPID PANEL [...] WILL NOT BE REPOR SUN. Not Available [facility] (Lab) [address] [place], [address], 11/05/2022 19:00:34 11/05/19 23 11/05/2022 CBC W/O DIFFE RENTI AL white blood cells 11.2 x10'3 /uL 4.2-10 .8 high Not Available [facility] (Lab) [address] [place], [address], 11/05/2022 18:08:54 11/05/19 23 11/05/2022 CBC W/O DIFFE RENTI AL red blood cells 4.80 x10'6 /uL 3.80-5 .20 Not Available [facility] (Lab) [address] [place], [address], 11/05/2022 18:08:54 11/05/19 23 11/05/2022 CBC W/O DIFFE RENTI AL hemoglobin 14.4 g/dL 12.0-1 5.6 Not Available [facility] (Lab) [address] [place], [address], 11/05/2022 18:08:54 11/05/19 23 11/05/2022 CBC W/O DIFFE RENTI AL hematocrit 42.8 % 35.7-4 5.7 Not Available [facility] (Lab) [address] [place], [address], 11/05/2022 18:08:54 11/05/19 23 11/05/2022 CBC W/O DIFFE RENTI AL mean red cell volume 89.2 fL 82.0-9 9.0 Not Available [facility] (Lab) [address] [place], [address], 11/05/2022 18:08:54 11/05/19 23 11/05/2022 CBC W/O DIFFE RENTI AL mean red cell hemoglobin 30.0 pg 27.0-3 3.0 Not Available [facility] (Lab) [address] [place], [address], 11/05/2022 18:08:54 11/05/19 23 11/05/2022 CBC W/O DIFFE RENTI AL mean RBC HGB concentratio n 33.6 g/dL 31.0-3 6.0 Not Available [facility] (Lab) [address] [place], [address], 11/05/2022 18:08:54 11/05/19 23 11/05/2022 CBC W/O DIFFE RENTI AL red cell distribution width 12.3 % 11.8-1 5.5 Not Available [facility] (Lab) [address] [place], [address], 11/05/2022 18:08:54 11/05/19 23 11/05/2022 CBC W/O DIFFE RENTI AL platelets 242 x10'3 /uL 150-40 0 Not Available [facility] (Lab) [address] [place], [address], 11/05/2022 18:08:54 11/05/19 23 11/05/2022 CBC W/O DIFFE RENTI AL mean platelet volume 11.2 fL 9.0-12 .4 Not Available [facility] (Lab) [address] [place], [address], 11/05/2022 18:08:54 12/17/19 23 12/17/2022 URINE MICRO SCOPI C EXAM/ IRIS white blood cells 0-8 /i??h pfi?? 0-8 Not Available [facility] (Lab) [address] [place], [address], 12/17/2022 17:21:13 12/17/19 23 12/17/2022 URINE MICRO SCOPI C EXAM/ IRIS red blood cells 11-20 /i??h pfi?? 0-4 abnormal Not Available [facility] (Lab) [address] [place], [address], 12/17/2022 17:21:13 12/17/19 23 12/17/2022 URINE MICRO SCOPI C EXAM/ IRIS bacteria occasi onal abnormal Not Available [facility] (Lab) [address] [place], [address], 12/17/2022 17:21:13 12/17/19 23 12/17/2022 URINE MICRO SCOPI C EXAM/ IRIS mucous many /i??l pfi?? abnormal Not Available [facility] (Lab) [address] [place], [address], 12/17/2022 17:21:13 12/17/19 23 12/17/2022 URINE MICRO SCOPI C EXAM/ IRIS squamous epithelial packed field /i??l pfi?? abnormal Not Available [facility] (Lab) [address] [place], [address], 12/17/2022 17:21:13 12/17/19 23 12/17/2022 CBC/C OMPLE TE BLD COUNT W/DIF F white blood cells 12.6 x10'3 /uL 4.2-10 .8 high Not Available [facility] (Lab) [address] [place], [address], 12/17/2022 17:20:28 12/17/19 23 12/17/2022 CBC/C OMPLE TE BLD COUNT W/DIF F red blood cells 5.02 x10'6 /uL 3.80-5 .20 Not Available [facility] (Lab) [address] [place], [address], 12/17/2022 17:20:28 12/17/19 23 12/17/2022 CBC/C OMPLE TE BLD COUNT W/DIF F hemoglobin 15.1 g/dL 12.0-1 5.6 Not Available [facility] (Lab) [address] [place], [address], 12/17/2022 17:20:28 12/17/19 23 12/17/2022 CBC/C OMPLE TE BLD COUNT W/DIF F hematocrit 45.7 % 35.7-4 5.7 Not Available [facility] (Lab) [address] [place], [address], 12/17/2022 17:20:28 12/17/19 23 12/17/2022 CBC/C OMPLE TE BLD COUNT W/DIF F mean red cell volume 91.0 fL 82.0-9 9.0 Not Available [facility] (Lab) [address] [place], [address], 12/17/2022 17:20:28 12/17/19 23 12/17/2022 CBC/C OMPLE TE BLD COUNT W/DIF F mean red cell hemoglobin 30.1 pg 27.0-3 3.0 Not Available [facility] (Lab) [address] [place], [address], 12/17/2022 17:20:28 12/17/19 23 12/17/2022 CBC/C OMPLE TE BLD COUNT W/DIF F mean RBC HGB concentratio n 33.0 g/dL 31.0-3 6.0 Not Available [facility] (Lab) [address] [place], [address], 12/17/2022 17:20:28 12/17/19 23 12/17/2022 CBC/C OMPLE TE BLD COUNT W/DIF F red cell distribution width 12.2 % 11.8-1 5.5 Not Available [facility] (Lab) [address] [place], [address], 12/17/2022 17:20:28 12/17/19 23 12/17/2022 CBC/C OMPLE TE BLD COUNT W/DIF F platelets 306 x10'3 /uL 150-40 0 Not Available [facility] (Lab) [address] [place], [address], 12/17/2022 17:20:28 12/17/19 23 12/17/2022 CBC/C OMPLE TE BLD COUNT W/DIF F mean platelet volume 9.7 fL 9.0-12 .4 Not Available [facility] (Lab) [address] [place], [address], 12/17/2022 17:20:28 12/17/19 23 12/17/2022 CBC/C OMPLE TE BLD COUNT W/DIF F neutrophils 68.1 % 39.0-7 2.0 Not Available [facility] (Lab) [address] [place], [address], 12/17/2022 17:20:28 12/17/19 23 12/17/2022 CBC/C OMPLE TE BLD COUNT W/DIF F lymphocytes 20.9 % 16.0-4 7.0 Not Available [facility] (Lab) [address] [place], [address], 12/17/2022 17:20:28 12/17/19 23 12/17/2022 CBC/C OMPLE TE BLD COUNT W/DIF F monocytes 9.1 % 5.0-12 .0 Not Available [facility] (Lab) [address] [place], [address], 12/17/2022 17:20:28 12/17/19 23 12/17/2022 CBC/C OMPLE TE BLD COUNT W/DIF F eosinophils 1.0 % 1.0-7. 0 Not Available [facility] (Lab) [address] [place], [address], 12/17/2022 17:20:28 12/17/19 23 12/17/2022 CBC/C OMPLE TE BLD COUNT W/DIF F basophils 0.4 % 0.0-2. 0 Not Available [facility] (Lab) [address] [place], [address], 12/17/2022 17:20:28 12/17/19 23 12/17/2022 CBC/C OMPLE TE BLD COUNT W/DIF F immature granulocytes 0.5 % 0.00-0 .50 Not Available [facility] (Lab) [address] [place], [address], 12/17/2022 17:20:28 12/17/19 23 12/17/2022 CBC/C OMPLE TE BLD COUNT W/DIF F neutrophils, absolute count 8.58 x10'3 /uL 1.5-8. 0 high Not Available [facility] (Lab) [address] [place], [address], 12/17/2022 17:20:28 12/17/19 23 12/17/2022 CBC/C OMPLE TE BLD COUNT W/DIF F lymphocytes, absolute count 2.64 x10'3 /uL 1.07-3 .43 Not Available [facility] (Lab) [address] [place], [address], 12/17/2022 17:20:28 12/17/19 23 12/17/2022 CBC/C OMPLE TE BLD COUNT W/DIF F monocytes, absolute count 1.15 x10'3 /uL 0.29-0 .99 high Not Available [facility] (Lab) [address] [place], [address], 12/17/2022 17:20:28 12/17/19 23 12/17/2022 CBC/C OMPLE TE BLD COUNT W/DIF F eosinophils, absolute count 0.13 x10'3 /uL 0.02-0 .53 Not Available [facility] (Lab) [address] [place], [address], 12/17/2022 17:20:28 12/17/19 23 12/17/2022 CBC/C OMPLE TE BLD COUNT W/DIF F basophils, absolute count 0.05 x10'3 /uL 0.01-0 .08 Not Available [facility] (Lab) [address] [place], [address], 12/17/2022 17:20:28 12/17/19 23 12/17/2022 CBC/C OMPLE TE BLD COUNT W/DIF F immature granulocytes ,absolute 0.06 x10'3 /uL 0.00-0 .05 high Not Available [facility] (Lab) [address] [place], [address], 12/17/2022 17:20:28 12/17/19 23 12/17/2022 CBC/C OMPLE TE BLD COUNT W/DIF F nucleated red blood cells 0.0 % -0 Not Available [facility] (Lab) [address] [place], [address], 12/17/2022 17:20:28 12/17/19 23 12/17/2022 CBC/C OMPLE TE BLD COUNT W/DIF F NRBC# 0.00 x10'3 /uL Not Available [facility] (Lab) [address] [place], [address], 12/17/2022 17:20:28 12/17/19 23 12/17/2022 LIPAS E SERUM lipase 23 U/L 23-300 Not Available [facility] (Lab) [address] [place], [address], 12/17/2022 17:09:58 12/17/19 23 12/17/2022 COMPR EHENS SHIRLEY METAB OLIC PANEL sodium 136 mmol/ L 137-14 5 low Not Available [facility] (Lab) [address] [place], [address], 12/17/2022 17:09:10 12/17/19 23 12/17/2022 COMPR EHENS SHIRLEY METAB OLIC PANEL potassium 4.2 mmol/ L 3.5-5. 1 Not Available [facility] (Lab) [address] [place], [address], 12/17/2022 17:09:10 12/17/19 23 12/17/2022 COMPR EHENS SHIRLEY METAB OLIC PANEL chloride 104 mmol/ L 98-107 Not Available [facility] (Lab) [address] [place], [address], 12/17/2022 17:09:10 12/17/19 23 12/17/2022 COMPR EHENS SHIRLEY METAB OLIC PANEL carbon dioxide 25 mmol/ L 22-30 Not Available [facility] (Lab) [address] [place], [address], 12/17/2022 17:09:10 12/17/19 23 12/17/2022 COMPR EHENS SHIRLEY METAB OLIC PANEL anion gap 11.2 mmol/ L 14-22 low Not Available [facility] (Lab) [address] [place], [address], 12/17/2022 17:09:10 12/17/19 23 12/17/2022 COMPR EHENS SHIRLEY METAB OLIC PANEL glucose 98 mg/dL 70-99 Not Available [facility] (Lab) [address] [place], [address], 12/17/2022 17:09:10 12/17/19 23 12/17/2022 COMPR EHENS SHIRLEY METAB OLIC PANEL BUN 12 mg/dL 8-19 Not Available [facility] (Lab) [address] [place], [address], 12/17/2022 17:09:10 12/17/19 23 12/17/2022 COMPR EHENS SHIRLEY METAB OLIC PANEL creatinine 0.64 mg/dL 0.66-1 .25 low Not Available [facility] (Lab) [address] [place], [address], 12/17/2022 17:09:10 12/17/19 23 12/17/2022 COMPR EHENS SHIRLEY METAB OLIC PANEL GFR >60 Refer ence Range : [place] ge GFR Healt hy Adult : >60 [...] or ethni c subgr oups, such as Hisal nics. Outsi de the valid ated santosh [...] s/kdo qi/gf r_cal culat or Not Available [facility] (Lab) [address] [place], [address], 12/17/2022 17:09:10 12/17/19 23 12/17/2022 COMPR EHENS SHIRLEY METAB OLIC PANEL alkaline phosphatase 80 U/L 38-126 Not Available [facility] (Lab) [address] [place], [address], 12/17/2022 17:09:10 12/17/19 23 12/17/2022 COMPR EHENS SHIRLEY METAB OLIC PANEL alanine aminotransfe rase 28 U/L 0-35 Not Available [facility] (Lab) [address] [place], [address], 12/17/2022 17:09:10 12/17/19 23 12/17/2022 COMPR EHENS SHIRLEY METAB OLIC PANEL aspartate aminotransfe rase 35 U/L 15-37 Not Available [facility] (Lab) [address] [place], [address], 12/17/2022 17:09:10 12/17/19 23 12/17/2022 COMPR EHENS SHIRLEY METAB OLIC PANEL bilirubin, total 1.00 mg/dL 0.20-1 .30 Not Available [facility] (Lab) [address] [place], [address], 12/17/2022 17:09:10 12/17/19 23 12/17/2022 COMPR EHENS SHIRLEY METAB OLIC PANEL calcium 9.3 mg/dL 8.4-10 .2 Not Available [facility] (Lab) [address] [place], [address], 12/17/2022 17:09:10 12/17/19 23 12/17/2022 COMPR EHENS SHIRLEY METAB OLIC PANEL total protein 7.8 g/dL 6.3-8. 2 Not Available [facility] (Lab) [address] [place], [address], 12/17/2022 17:09:10 12/17/19 23 12/17/2022 COMPR EHENS SHIRLEY METAB OLIC PANEL albumin 4.5 g/dL 3.4-5. 0 Not Available [facility] (Lab) [address] [place], [address], 12/17/2022 17:09:10 12/17/19 23 12/17/2022 COMPR EHENS SHIRLEY METAB OLIC PANEL globulin 3.3 g/dL 2.6-4. 2 Not Available [facility] (Lab) [address] [place], [address], 12/17/2022 17:09:10 12/17/19 23 12/17/2022 COMPR EHENS SHIRLEY METAB OLIC PANEL A/G ratio 1.4 ratio 1.0-2. 0 Not Available [facility] (Lab) [address] [place], [address], 12/17/2022 17:09:10 05/06/20 23 05/06/2023 CBC/C OMPLE TE BLD COUNT W/DIF F white blood cells 7.1 x10'3 /uL 4.2-10 .8 Not Available [facility] (Lab) [address] [place], [address], 05/06/2023 12:22:14 05/06/20 23 05/06/2023 CBC/C OMPLE TE BLD COUNT W/DIF F red blood cells 4.62 x10'6 /uL 3.80-5 .20 Not Available [facility] (Lab) [address] [place], [address], 05/06/2023 12:22:14 05/06/20 23 05/06/2023 CBC/C OMPLE TE BLD COUNT W/DIF F hemoglobin 14.1 g/dL 12.0-1 5.6 Not Available [facility] (Lab) [address] [place], [address], 05/06/2023 12:22:14 05/06/20 23 05/06/2023 CBC/C OMPLE TE BLD COUNT W/DIF F hematocrit 41.7 % 35.7-4 5.7 Not Available [facility] (Lab) [address] [place], [address], 05/06/2023 12:22:14 05/06/20 23 05/06/2023 CBC/C OMPLE TE BLD COUNT W/DIF F mean red cell volume 90.3 fL 82.0-9 9.0 Not Available [facility] (Lab) [address] [place], [address], 05/06/2023 12:22:14 05/06/20 23 05/06/2023 CBC/C OMPLE TE BLD COUNT W/DIF F mean red cell hemoglobin 30.5 pg 27.0-3 3.0 Not Available [facility] (Lab) [address] [place], [address], 05/06/2023 12:22:14 05/06/20 23 05/06/2023 CBC/C OMPLE TE BLD COUNT W/DIF F mean RBC HGB concentratio n 33.8 g/dL 31.0-3 6.0 Not Available [facility] (Lab) [address] [place], [address], 05/06/2023 12:22:14 05/06/20 23 05/06/2023 CBC/C OMPLE TE BLD COUNT W/DIF F red cell distribution width 12.0 % 11.8-1 5.5 Not Available [facility] (Lab) [address] [place], [address], 05/06/2023 12:22:14 05/06/20 23 05/06/2023 CBC/C OMPLE TE BLD COUNT W/DIF F platelets 251 x10'3 /uL 150-40 0 Not Available [facility] (Lab) [address] [place], [address], 05/06/2023 12:22:14 05/06/20 23 05/06/2023 CBC/C OMPLE TE BLD COUNT W/DIF F mean platelet volume 9.9 fL 9.0-12 .4 Not Available [facility] (Lab) [address] [place], [address], 05/06/2023 12:22:14 05/06/20 23 05/06/2023 CBC/C OMPLE TE BLD COUNT W/DIF F neutrophils 62.9 % 39.0-7 2.0 Not Available [facility] (Lab) [address] [place], [address], 05/06/2023 12:22:14 05/06/20 23 05/06/2023 CBC/C OMPLE TE BLD COUNT W/DIF F lymphocytes 26.1 % 16.0-4 7.0 Not Available [facility] (Lab) [address] [place], [address], 05/06/2023 12:22:14 05/06/20 23 05/06/2023 CBC/C OMPLE TE BLD COUNT W/DIF F monocytes 8.4 % 5.0-12 .0 Not Available [facility] (Lab) [address] [place], [address], 05/06/2023 12:22:14 05/06/20 23 05/06/2023 CBC/C OMPLE TE BLD COUNT W/DIF F eosinophils 1.1 % 1.0-7. 0 Not Available [facility] (Lab) [address] [place], [address], 05/06/2023 12:22:14 05/06/20 23 05/06/2023 CBC/C OMPLE TE BLD COUNT W/DIF F basophils 0.7 % 0.0-2. 0 Not Available [facility] (Lab) [address] [place], [address], 05/06/2023 12:22:14 05/06/20 23 05/06/2023 CBC/C OMPLE TE BLD COUNT W/DIF F immature granulocytes 0.8 % 0.00-0 .50 high Not Available [facility] (Lab) [address] [place], [address], 05/06/2023 12:22:14 05/06/20 23 05/06/2023 CBC/C OMPLE TE BLD COUNT W/DIF F neutrophils, absolute count 4.47 x10'3 /uL 1.5-8. 0 Not Available [facility] (Lab) [address] [place], [address], 05/06/2023 12:22:14 05/06/20 23 05/06/2023 CBC/C OMPLE TE BLD COUNT W/DIF F lymphocytes, absolute count 1.86 x10'3 /uL 1.07-3 .43 Not Available [facility] (Lab) [address] [place], [address], 05/06/2023 12:22:14 05/06/20 23 05/06/2023 CBC/C OMPLE TE BLD COUNT W/DIF F monocytes, absolute count 0.60 x10'3 /uL 0.29-0 .99 Not Available [facility] (Lab) [address] [place], [address], 05/06/2023 12:22:14 05/06/20 23 05/06/2023 CBC/C OMPLE TE BLD COUNT W/DIF F eosinophils, absolute count 0.08 x10'3 /uL 0.02-0 .53 Not Available [facility] (Lab) [address] [place], [address], 05/06/2023 12:22:14 05/06/20 23 05/06/2023 CBC/C OMPLE TE BLD COUNT W/DIF F basophils, absolute count 0.05 x10'3 /uL 0.01-0 .08 Not Available [facility] (Lab) [address] [place], [address], 05/06/2023 12:22:14 05/06/20 23 05/06/2023 CBC/C OMPLE TE BLD COUNT W/DIF F immature granulocytes ,absolute 0.06 x10'3 /uL 0.00-0 .05 high Not Available [facility] (Lab) [address] [place], [address], 05/06/2023 12:22:14 05/06/20 23 05/06/2023 CBC/C OMPLE TE BLD COUNT W/DIF F nucleated red blood cells 0.0 % -0 Not Available [facility] (Lab) [address] [place], [address], 05/06/2023 12:22:14 05/06/20 23 05/06/2023 CBC/C OMPLE TE BLD COUNT W/DIF F NRBC# 0.00 x10'3 /uL Not Available [facility] (Lab) [address] [place], [address], 05/06/2023 12:22:14 05/06/20 23 05/06/2023 LIPID PANEL cholesterol 212 mg/dL 140-19 9 high [facility] NSUS RECOM MENDA TION FOR LOLI STERO L: ADULT CHILD LOW RISK: <200 <170 BORDE RLINE : <200- 239 ----- HIGH RISK: >240 >200 Not Available [facility] (Lab) [address] [place], [address], 05/06/2023 12:37:23 05/06/2005/06/2023 LIPID PANEL triglyceride s 79 mg/dL 0-150 [facility] NSUS REPOR T RECOM MENDA TION FOR TRIGL YCERI FESTUS: ADULT CHILD LOW RISK: <150 ----- BODER LINE: 150-1 99 ----- HIGH RISK: >200 ----- Not Available [facility] (Lab) [address] [place], [address], 05/06/2023 12:37:23 05/06/20 23 05/06/2023 LIPID PANEL HDL cholesterol 58 mg/dL 40- Not Available [facility] (Lab) [address] [place], [address], 05/06/2023 12:37:23 05/06/2005/06/2023 LIPID PANEL LDL cholesterol, [...] WILL NOT BE REPOR SUN. Not Available [facility] (Lab) [address] [place], [address], 05/06/2023 12:37:23 05/06/20 23 05/06/2023 COMPR EHENS SHIRLEY METAB OLIC PANEL sodium 138 mmol/ L 137-14 5 Not Available [facility] (Lab) [address] [place], [address], 05/06/2023 12:37:29 05/06/20 23 05/06/2023 COMPR EHENS SHIRLEY METAB OLIC PANEL potassium 4.1 mmol/ L 3.5-5. 1 Not Available [facility] [facility] (Lab) [address] [place], [address], 05/06/2023 12:37:29 05/06/20 23 05/06/2023 COMPR EHENS SHIRLEY METAB OLIC PANEL chloride 106 mmol/ L 98-107 Not Available [facility] (Lab) [address] [place], [address], 05/06/2023 12:37:29 05/06/20 23 05/06/2023 COMPR EHENS SHIRLEY METAB OLIC PANEL carbon dioxide 21 mmol/ L 22-30 low Not Available [facility] (Lab) [address] [place], [address], 05/06/2023 12:37:29 05/06/20 23 05/06/2023 COMPR EHENS SHIRLEY METAB OLIC PANEL anion gap 15.1 mmol/ L 14-22 Not Available [facility] (Lab) [address] [place], [address], 05/06/2023 12:37:29 05/06/20 23 05/06/2023 COMPR EHENS SHIRLEY METAB OLIC PANEL glucose 102 mg/dL 70-99 high Not Available [facility] (Lab) [address] [place], [address], 05/06/2023 12:37:29 05/06/20 23 05/06/2023 COMPR EHENS SHIRLEY METAB OLIC PANEL BUN 9 mg/dL 8-19 Not Available [facility] (Lab) [address] [place], [address], 05/06/2023 12:37:29 05/06/20 23 05/06/2023 COMPR EHENS SHIRLEY METAB OLIC PANEL creatinine 0.61 mg/dL 0.66-1 .25 low Not Available [facility] (Lab) [address] [place], [address], 05/06/2023 12:37:29 05/06/20 23 05/06/2023 COMPR EHENS SHIRLEY METAB OLIC PANEL GFR >60 Refer ence Range : [place] ge GFR Healt hy Adult : >60 [...] calcu lator is avail able on the [facility] websi te: https ://ww w.kid alec.o rg/pr ofess ional s/kdo qi/gf r_cal culat or Not Available [facility] (Lab) [address] [place], [address], 05/06/2023 12:37:29 05/06/20 23 05/06/2023 COMPR EHENS SHIRLEY METAB OLIC PANEL alkaline phosphatase 91 U/L 38-126 Not Available [facility] (Lab) [address] [place], [address], 05/06/2023 12:37:29 05/06/20 23 05/06/2023 COMPR EHENS SHIRLEY METAB OLIC PANEL alanine aminotransfe rase 20 U/L 0-35 Not Available [facility] (Lab) [address] [place], [address], 05/06/2023 12:37:29 05/06/20 23 05/06/2023 COMPR EHENS SHIRLEY METAB OLIC PANEL aspartate aminotransfe rase 21 U/L 15-37 Not Available [facility] (Lab) [address] [place], [address], 05/06/2023 12:37:29 05/06/20 23 05/06/2023 COMPR EHENS SHIRLEY METAB OLIC PANEL bilirubin, total 0.50 mg/dL 0.20-1 .30 Not Available [facility] (Lab) [address] [place], [address], 05/06/2023 12:37:29 05/06/20 23 05/06/2023 COMPR EHENS SHIRLEY METAB OLIC PANEL calcium 8.5 mg/dL 8.4-10 .2 Not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
--- OUTSIDE RECORDS SUMMARY | 2025-02-16 10:16 | XMS_ITS | Data Portability ---
Author Organization [facility] Madyson Funez Address [address] [place] [address] Care Team Providers Care Special Needs Teacher Name Role Phone GREG WALSH Primary Care Provider [phone] Assessment Encounter Date Assessment Date Assessment LastModified by Organization Details LastModified Time 04/26/2024 04/26/2024 blood work has been ordered we will try to get a GLP 1 agent she has been on multiple diets in the past to no avail obtain old records continue current therapy see me in 4 months [email or web address] Not available 05/09/2024 22:14:03 08/23/2024 08/23/2024 blood work continue current therapy routine planning supervisor appointment anxiety hypertension GERD discussed healthy lifestyle care instructions follow up 6 months [email or web address] Not available 08/23/2024 22:31:06 02/01/2025 02/01/[address] obtain blood work healthy lifestyle care instructions further recommendations pending results of testing. EKG shows sinus rhythm some T-wave inversions anteriorly we will obtain echocardiogram worsening symptoms she was instructed to go to the emergency room [email or web address] Not available 02/04/2025 11:03:46 Plan of Treatment Reminders Order Date Submit Date Provider Last Modified By Organization Details Last Modified Time Details Appointments ANY 15 2024 09:30A M Greg Walsh MD Not available Not available Not available Lab CBC w/ auto diff 2024 025 [facility] (Lab), [address] [place] [address] [address], [place], [address], 02/01/2025 21:01:40 CMP, serum or plasma 2024 025 [facility] (Lab), [address], [place], [address], 02/01/2025 21:01:40 lipid panel, serum 2023 024 [facility], [address], [place], [address], 08/24/2024 08:30:59 CBC w/ auto diff 2023 024 [facility], [address], [place], [address], 08/24/2024 08:31:03 CMP, serum or plasma 2023 024 [facility], [address], [place], [address], 08/24/2024 08:31:00 HbA1c (hemoglob in A1c), blood 2023 024 [facility], [address], [place], [address], 08/24/2024 08:31:02 HbA1c (hemoglob in A1c), blood 2023 024 [email or web address] [facility], [address], [place], [address], 09/07/2024 15:15:48 lipid panel, serum 2023 024 [email or web address] [facility], [address], [place], [address], 09/07/2024 15:15:47 CBC w/ auto diff 2023 024 [email or web address] [facility], [address], [place], [address], 09/07/2024 15:15:47 CMP, serum or plasma 2023 024 [email or web address] [facility], [address], [place], [address], 09/07/2024 15:15:47 TSH + free T4, serum 2023 024 [email or web address], [address], [place], [address], 09/08/2024 17:27:56 T3, free, serum or plasma 2023 024 [email or web address], [address], [place], [address], 09/08/2024 17:28:09 Referral gynecolog ist referral 2023 024 [email or web address] Montiel MD, [address] [place] [address] [address], [place], [address], 01/30/2025 12:28:53 Procedures None recorded. Surgeries None recorded. Imaging CT, head, w/o contrast - STAT Auth not required per [facility] portal 2024 025 [facility], [address], [place], [address], 02/01/2025 17:52:29 electroca rdiogram 2024 025 [email or web address] [id number] In-Office Order, Internal Use Only DO Not Attach Compendium DO Not Attach Compendium, Do Not Delete/merge, [id number] 02/01/2025 17:12:12 US, echocardi ogram [address] ([facility]), [address], [place], [address], 02/01/2025 17:12:12 MAMMO, screening , bilateral 2023 024 [facility], [address], [place], [address], 02/10/2025 11:08:49 Medication Orders Wegovy 0.25 mg/0.5 mL subcutane ous pen injector 2023 024 [email or web address] [id number], [address] [place] [address], [address], 04/27/2024 13:41:09 Wegovy 0.5 mg/0.5 mL subcutane ous pen injector 2023 024 [email or web address] [id number], [address] [place] [address], [address], 04/27/2024 13:41:09 Patient TargetsNo targets recorded. Patient Instructions Encounter Date Encounter Id Patient Instructions Last Modified By Organization Details Last Modified Time 02/01/2025 [id number] A healthy lifestyle: care instructions Not available 02/01/2025 17:12:12 Reason for Referral Copy Manager Referral for Gy necologic examination Referring Physician: Greg Walsh, Internal Medicine, Encounter Date: 08/23/2024 Results Created Date Observation Date Name Description Value Unit Range Abnormal Flag Note LastModifiedBy Organization Detail LastModifiedTime 08/23/2008/24/2024 LIPID PANEL cholesterol, total 219 mg/dL 100-19 9 above high normal Not Available [facility] ([facility]) [address] [place], [address], 08/24/2024 08:30:59 08/23/2008/24/2024 LIPID PANEL triglyceride s 198 mg/dL 0-149 above high normal Not Available [facility] ([facility]) [address] [place], [address], 08/24/2024 08:30:59 08/23/2008/24/2024 LIPID PANEL HDL cholesterol 54 mg/dL >39 Not Available [facility] ([facility]) [address] [place], [address], 08/24/2024 08:30:59 08/23/20 24 08/24/2024 LIPID PANEL VLDL cholesterol nidia 35 mg/dL 5-40 Not Available [facility] ([facility]) [address] [facility], [place], [address], 08/24/2024 08:30:59 08/23/20 24 08/24/2024 LIPID PANEL LDL chol calc ([facility]) 130 mg/dL 0-99 above high normal Not Available [facility] ([facility]) [address] [place], [address], 08/24/2024 08:30:59 08/23/2008/24/2024 COMP. METAB OLIC PANEL (14) glucose 82 mg/dL 70-99 Not Available [facility] ([facility]) [address] [place], [address], 08/24/2024 08:31:00 08/23/20 24 08/24/2024 COMP. METAB OLIC PANEL (14) BUN 13 mg/dL 6-24 Not Available [facility] ([facility]) [address] [place], [address], 08/24/2024 08:31:00 08/23/20 24 08/24/2024 COMP. METAB OLIC PANEL (14) creatinine 0.88 mg/dL 0.57-1 .00 Not Available [facility] ([facility]) [address] [place], [address], 08/24/2024 08:31:00 08/23/20 24 08/24/2024 COMP. METAB OLIC PANEL (14) eGFR 83 mL/mi n/1.7 3 >59 Not Available [facility] ([facility]) [address] [place], [address], 08/24/2024 08:31:00 08/23/20 24 08/24/2024 COMP. METAB OLIC PANEL (14) BUN/creatini ne ratio 15 9-23 Not Available [facility] ([facility]) [address] [facility] [place], [address], 08/24/2024 08:31:00 08/23/20 24 08/24/2024 COMP. METAB OLIC PANEL (14) sodium 139 mmol/ L 134-14 4 Not Available [facility] ([facility]) [address] [facility] [place], [address], 08/24/2024 08:31:00 08/23/20 24 08/24/2024 COMP. METAB OLIC PANEL (14) potassium 4.4 mmol/ L 3.5-5. 2 Not Available [facility] ([facility]) [address] [facility], [place], [address], 08/24/2024 08:31:00 08/23/20 24 08/24/2024 COMP. METAB OLIC PANEL (14) chloride 100 mmol/ L 96-106 Not Available [facility] ([facility]) [address] [facility] [place], [address], 08/24/2024 08:31:00 08/23/20 24 08/24/2024 COMP. METAB OLIC PANEL (14) carbon dioxide, total 23 mmol/ L 20-29 Not Available [facility] ([facility]) [address] [facility] [place], [address], 08/24/2024 08:31:00 08/23/20 24 08/24/2024 COMP. METAB OLIC PANEL (14) calcium 9.6 mg/dL 8.7-10 .2 Not Available [facility] ([facility]) [address] [facility] [place], [address], 08/24/2024 08:31:00 08/23/20 24 08/24/2024 COMP. METAB OLIC PANEL (14) protein, total 6.9 g/dL 6.0-8. 5 Not Available [facility] ([facility]) [address] [facility], [place], [address], 08/24/2024 08:31:00 08/23/2008/24/2024 COMP. METAB OLIC PANEL (14) albumin 4.4 g/dL 3.9-4. 9 Not Available [facility] ([facility]) [address] [facility], [place], [address], 08/24/2024 08:31:00 08/23/2008/24/2024 COMP. METAB OLIC PANEL (14) globulin, total 2.5 g/dL 1.5-4. 5 Not Available [facility] ([facility]) [address] [facility], [place], [address], 08/24/2024 08:31:00 08/23/20 24 08/24/2024 COMP. METAB OLIC PANEL (14) bilirubin, total 0.3 mg/dL 0.0-1. 2 Not Available [facility] ([facility]) [address] [facility], [place], [address], 08/24/2024 08:31:00 08/23/2008/24/2024 COMP. METAB OLIC PANEL (14) alkaline phosphatase 86 IU/L 44-121 Not Available [facility] ([facility]) [address] [facility], [place], [address], 08/24/2024 08:31:00 08/23/20 24 08/24/2024 COMP. METAB OLIC PANEL (14) AST (SGOT) 16 IU/L 0-40 Not Available [facility] ([facility]) [address] [facility], [place], [address], 08/24/2024 08:31:00 08/23/20 24 08/24/2024 COMP. METAB OLIC PANEL (14) ALT (SGPT) 18 IU/L 0-32 Not Available [facility] ([facility]) [address] [facility], [place], [address], 08/24/2024 08:31:00 08/23/2008/24/2024 HEMOG LOBIN A1C hemoglobin A1C 5.7 % 4.8-5. 6 above high normal Predi abete s: 5.7 - 6.4 Diabe tahir: >6.4 Glyce avery contr ol for adult s with diabe tahir: <7.0 Not Available [facility] ([facility]) [address] [facility], [place], [address], 08/24/2024 08:31:02 08/23/2008/24/2024 CBC WITH DIFFE RENTI AL/PL ATELE T WBC 11.6 x10e3 /uL 3.4-10 .8 above high normal Not Available [facility] ([facility]) [address] [facility], [place], [address], 08/24/2024 08:31:03 08/23/2008/24/2024 CBC WITH DIFFE RENTI AL/PL ATELE T RBC 4.65 x10e6 /uL 3.77-5 .28 Not Available [facility] ([facility]) [address] [facility], [place], [address], 08/24/2024 08:31:03 08/23/2008/24/2024 CBC WITH DIFFE RENTI AL/PL ATELE T hemoglobin 14.2 g/dL 11.1-1 5.9 Not Available [facility] ([facility]) [address] [place], [address], 08/24/2024 08:31:03 08/23/2008/24/2024 CBC WITH DIFFE RENTI AL/PL ATELE T hematocrit 41.9 % 34.0-4 6.6 Not Available [facility] ([facility]) [address] [place], [address], 08/24/2024 08:31:03 08/23/20 24 08/24/2024 CBC WITH DIFFE RENTI AL/PL ATELE T MCV 90 fL 79-97 Not Available [facility] ([facility]) [address] [facility], [place], [address], 08/24/2024 08:31:03 08/23/2008/24/2024 CBC WITH DIFFE RENTI AL/PL ATELE T MCH 30.5 pg 26.6-3 3.0 Not Available [facility] ([facility]) [address] [facility], [place], [address], 08/24/2024 08:31:03 08/23/2008/24/2024 CBC WITH DIFFE RENTI AL/PL ATELE T MCHC 33.9 g/dL 31.5-3 5.7 Not Available [facility] ([facility]) [address] [facility], [place], [address], 08/24/2024 08:31:03 08/23/2008/24/2024 CBC WITH DIFFE RENTI AL/PL ATELE T RDW 12.3 % 11.7-1 5.4 Not Available [facility] ([facility]) [address] [facility], [place], [address], 08/24/2024 08:31:03 08/23/2008/24/2024 CBC WITH DIFFE RENTI AL/PL ATELE T platelets 319 x10e3 /uL 150-45 0 Not Available [facility] ([facility]) [address] [facility], [place], [address], 08/24/2024 08:31:03 08/23/2008/24/2024 CBC WITH DIFFE RENTI AL/PL ATELE T neutrophils 61 % notest ab. Not Available [facility] ([facility]) [address] [facility], [place], [address], 08/24/2024 08:31:03 08/23/20 24 08/24/2024 CBC WITH DIFFE RENTI AL/PL ATELE T lymphs 28 % notest ab. Not Available [facility] ([facility]) [address] [facility], [place], [address], 08/24/2024 08:31:03 08/23/2008/24/2024 CBC WITH DIFFE RENTI AL/PL ATELE T monocytes 8 % notest ab. Not Available [facility] ([facility]) [address] [facility], [place], [address], 08/24/2024 08:31:03 08/23/2008/24/2024 CBC WITH DIFFE RENTI AL/PL ATELE T eos 1 % notest ab. Not Available [facility] ([facility]) [address] [facility], [place], [address], 08/24/2024 08:31:03 08/23/20 24 08/24/2024 CBC WITH DIFFE RENTI AL/PL ATELE T basos 1 % notest ab. Not Available [facility] ([facility]) [address] [facility], [place], [address], 08/24/2024 08:31:03 08/23/2008/24/2024 CBC WITH DIFFE RENTI AL/PL ATELE T neutrophils (absolute) 7.2 x10e3 /uL 1.4-7. 0 above high normal Not Available [facility] ([facility]) [address] [facility], [place], [address], 08/24/2024 08:31:03 08/23/20 24 08/24/2024 CBC WITH DIFFE RENTI AL/PL ATELE T lymphs (absolute) 3.3 x10e3 /uL 0.7-3. 1 above high normal Not Available [facility] ([facility]) [address] [facility], [place], [address], 08/24/2024 08:31:03 08/23/20 24 08/24/2024 CBC WITH DIFFE RENTI AL/PL ATELE T monocytes(ab solute) 0.9 x10e3 /uL 0.1-0. 9 Not Available [facility] ([facility]) [address] [facility], [place], [address], 08/24/2024 08:31:03 08/23/20 24 08/24/2024 CBC WITH DIFFE RENTI AL/PL ATELE T eos (absolute) 0.1 x10e3 /uL 0.0-0. 4 Not Available [facility] ([facility]) [address] [facility], [place], [address], 08/24/2024 08:31:03 08/23/20 24 08/24/2024 CBC WITH DIFFE RENTI AL/PL ATELE T baso (absolute) 0.1 x10e3 /uL 0.0-0. 2 Not Available [facility] ([facility]) [address] [facility], [place], [address], 08/24/2024 08:31:03 08/23/20 24 08/24/2024 CBC WITH DIFFE RENTI AL/PL ATELE T immature granulocytes 1 % notest ab. Not Available [facility] ([facility]) [address] [facility], [place], [address], 08/24/2024 08:31:03 08/23/20 24 08/24/2024 CBC WITH DIFFE RENTI AL/PL ATELE T immature grans (abs) 0.1 x10e3 /uL 0.0-0. 1 Not Available [facility] ([facility]) [address] [facility], [place], [address], 08/24/2024 08:31:03 02/02/20 elect rocar diogr am No observ ation record ed. ALAN In-Office Order Internal Use Only DO Not Attach Compendium DO Not Attach Compendium, Do Not Delete/merge, [id number] 02/01/2025 16:55:10 02/02/20 25 02/01/2025 elect rocar diogr am No observ ation record ed. BARCODE In-Office Order Internal Use Only DO Not Attach Compendium DO Not Attach Compendium, Do Not Delete/merge, [id number] 02/01/2025 17:12:09 02/02/20 25 02/01/2025 CT, head, w/o contr ast No observ ation record ed. [address], [place], [address], 02/01/2025 21:27:00 02/02/20 25 02/01/2025 CT, head, w/o contr ast No observ ation record ed. [place] [id number] [facility] [address], [place], [address], 02/01/2025 21:27:00 Result Notes None recorded. Problems Name Problem SNOMED Code Status Onset Date Resolution Date Notes Provider Name and Address Organization Details Recorded Time Overweight 308571065 Active 2023 TUSHAR Whit[place], [place] - [facility] 4 16:18:29 Essential hypertension 95233927 Active 2023 Tamika Soriano MA null, [place] - [facility] 4 16:18:31 Anxiety 43462946 Active 2023 Greg Walsh MD Attn: Kacy sewell,[address] [facility], [place], [address] , [place] - [facility] 4 22:31:11 Headache 41096433 Active 2024 Tamika Soriano MA null, [place] - [facility] 5 16:29:12 Problem Notes None recorded. Procedures Surgical History Date Name Laterality Status Provider Name and Address Organization Details Recorded Time 11/02/19 09 partial hysterectomy completed Michelle Hernandez MA [place] - [facility] 04/26/2024 15:23:23 11/02/19 07 Dilation and Curettage completed TUSHAR Mart[place] - [place] 04/26/2024 15:22:50 11/02/19 05 appendectomy completed TUSHAR [place] - [place] 04/26/2024 15:21:57 11/02/19 03 tonsillectomy completed Michelle Hernandez MA [place] - [facility] 04/26/2024 15:22:38 11/02/18 84 ligation of bilateral fallopian tubes completed Michelle Hernandez MA [facility] 04/26/2024 15:23:54 11/02/18 84 adenoid excision completed Michelle Hernandez MA [facility] SI 04/26/2024 15:24:56 cholecystostomy completed Michelle Hernandez MA [facility] SI 04/26/2024 15:22:22 Imaging Results Imaging Date Name Status LastModified by Organization Details LastModified Time 02/01/2025 electrocardiogram completed ALAN In-Offi ce Order Internal Use Only DO Not Attach Compendium DO Not Attach Compendium, Do Not Delete/merge, [id number] 02/01/2025 16:55:10 02/01/2025 electrocardiogram completed BARCODE In-Offi ce Order Internal Use Only DO Not Attach Compendium DO Not Attach Compendium, Do Not Delete/merge, [id number] 02/01/2025 17:12:09 02/01/2025 CT, head, w/o contrast completed [address], [address], 02/01/2025 21:27:00 02/01/2025 CT, head, w/o contrast completed [address], [address], 02/01/2025 21:27:00 Procedure Notes None recorded. Medical Equipment None [...] Updated DateTime 4 167.64 cm 43.6 kg/m2 390199. 94 g 97 % 97 % 81 /min 124 mm[Hg] 82 mm[Hg] Michelle Hernandez MA [place] - [facility] 4 15:31:23 Date Recorded Body height Body mass index (BMI) Body weight Heart rate Oxygen saturation Oxygen saturation in Arterial blood by Pulse oximetry Systolic blood pressure Diastolic blood pressure Provider Name and Address Organization Details Last Updated DateTime 4 167.64 cm 45.6 kg/m2 654521. 2 g 91 /min 95 % 95 % 124 mm[Hg] 70 mm[Hg] Shilpi Mcarthur MA [place] - [facility] 4 16:11:45 Date Recorded Body height Body mass index (BMI) Body weight Heart rate Oxygen saturation Oxygen saturation in Arterial blood by Pulse oximetry Systolic blood pressure Diastolic blood pressure Provider Name and Address Organization Details Last Updated DateTime 5 167.64 cm 45.3 kg/m2 823633. 3 g 94 /min 97 % 97 % 124 mm[Hg] 70 mm[Hg] Shilpi Mcarthur MA [facility] S[facility] 5 15:24:11 Social History Question Answer Notes LastModified by Organizat ion Details LastModified Time Tobacco Smoking Status Never Smoker Michelle Hernandez MA [facility], [facility] 04/26/2024 15:19:44 What Is Your Level Of [...] Anxious, Or Unable To Sleep At Night)? TO4171-2 Information not available 04/26/2024 Do You Use [...] Response Coronary Artery Disease N Other N Atrial Fibrillation N High Blood Pressure N Depression N COPD N Blood Clots N Anxiety Disorder Y Muscle, Joint, or Bone Problems N Acid Reflux (GERD) Y Cancer N Stroke N High Cholesterol N Liver Disease N Headaches Y Kidney or Bladder Problems N Thyroid Problems N GI Problems N Skin Problems N Anemia N Heart Attack ([place]) N Diabetes N Seizures/Epilepsy N Asthma N Allergies Y Hepatitis N Heart Failure N Osteoporosis N Gynecological History Statement/Question Response Current Control Method Hysterectom y Obstetrics History GPAL:G 0 P 0 0 0 0 Past Encounters Encounter ID Performer Location Encounter Start Date Encounter Closed Date Diagnosis/Indication Diagnosis SNOMED-CT Code Diagnosis ICD10 Code Diagnosis Note [id number] [facility] [address] [place] [phone] 04/26/2024 14:57:29 04/26/2024 16:22:42 Essential hypertension 26240968 I10 Overweight 388523123 E66 .3 Anxiety 27197716 F41.9 Gastroesop hageal reflux disease without esophagitis 326626536 K21.9 [id number] Greg Walsh MD [facility] (Adult Med) [address] [place] [phone] 08/23/2024 15:58:05 08/23/2024 17:08:29 Essential hypertension 45129874 I10 Diabetes m ellitus screening 409786934 Z13.1 Screening mammography 24 134623 Z12.31 Gynecologi c examination 19498403 Z01.606 [id number] Greg Walsh MD [facility] (Adult Med) [address] [place] [phone] 02/01/2025 14:42:43 02/01/2025 16:27:59 Body mass index 30+ - obesity 441925243 Z68.42 Obesity 164419593 E66.9 Headache 90567053 R51.9 Essential hypertension 14997124 I10 Dizziness 225708550 R42 Health Concerns Section Related Observation LastModified by Organization Detai ls LastModified Time None Recorded Concern Status LastModified by Organization Details LastModified Time None Recorded Advance Directives Directive None Recorded Payers Encounter Date Sequence Insurance Name Policy Number Policy Iglesias Covered Member ID Iglesias Member ID Guarantor Name 04/26/2024 1 [facility] [id number] Deloris Rosenthal [id number] Deloris Rosenthal 08/23/2024 1 [facility] [id number] Deloris Rosenthal [id number] Deloris Rosenthal 02/01/2025 1 [facility] [id number] Deloris Jimenez [place]o [id number] Deloris Rosenthal Notes Date Note Type Note Provider Name and Address Organization Details Recorded Time 04/26/2024 text/html hypertension no headache or dizziness overweight we are going to try to do something with caloric restriction and try to get her on a GLP 1 there is no contraindications anxiety has been stable GERD no nausea no vomiting Greg Walsh MD Attn: Accounting,[address] [facility], [place], [address], [facility], [place] 05/09/2024 22:14:18 08/23/2024 text/html hypertension no headache no dizziness she needs planning supervisor for all more referral for well-woman exam anxiety still coping with loss of her aunt that she was very close to and mother with cancer she could not wegovy before her obesity insurance does not cover GLP 1 Greg Walsh MD Attn: Accounting,[address] [facility], [place], [address], [facility], [place] 08/23/2024 22:31:29 02/01/2025 text/html episode where sh e felt dizzy flush no palpitations or chest pain no speech problems but it is kind of a dull headache slowly feeling better Greg Walsh MD Attn: Accounting,[address] [facility], [place], [address], [facility], [place] 02/04/2025 11:04:07 OBGyn Episode No OBEpisode recorded.
--- OUTSIDE RECORDS SUMMARY | 2025-02-16 10:16 | XMS_ITS | Clinical Summary ---
Author Organization [facility] [employer] Address [address] [place] [address] Care Team Providers Care Orthopedic Brace Maker Name Role Phone Tello Walsh MD Primary Care Provider [phone] Source Comments [facility] [employer],non-owned Affiliates and Associated Physician Practices is amultiple site organization consisting of ambulatory clinics and hospital sitesin [place], [place], [place] and [place]. This disclosure is being madepursuant to the Care Everywhere program and may not contain all information available regarding this patient. Last updated 18.[facility] [employer] Allergies Active Allergy Reactions Criticality Noted Date Comments Montelukast Other 12/10/2018 Rage Medications * Be aware that medications may not be up to date on this document. Alwaysverify current medications with the patient. 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
== END 2025-02-16 09:41 | disposition home or self-care (01) ==
PROVIDERS: PCP Internal Medicine; Visit Provider Internal Medicine
DX: I10 Essential (primary) hypertension (principal); I65.23 Occlusion and stenosis of bilateral carotid arteries
CPT/HCPCS: 93306

== ENCOUNTER 2025-02-17 10:59 | Outpatient (CLI) | payer OTHER, SELFPAY ==
--- NOTE | ~2025-02-17 | US_ITS ---
EXAMINATION: US carotid duplex BI DATE: 02/17/2025 11:36 INDICATION: Dizziness TECHNIQUE: Grayscale, color Doppler, and pulsed Doppler images of the cervical carotid arteries were obtained. The degree of vessel stenosis is placed in one of the following categories: normal, <50%, 5 0-69%, >=70% but less than near-occlusion, near-occlusion, or total occlusion. Note that percent sten osis relative to normal distal artery lumen diameter is indirectly measured from velocity measurement s as described by Gilberto, et al. Radiology 2003; 229:340-346. Notes: Normal: Peak systolic velocity <125 centimeters/sec and no plaque <50%. Peak systolic velocity <125 ( EDV <40; ICA/CCA PSV ratio <2.0; used these factors only a tandem lesions or low cardiac output or co ntralateral disease) 50-69 %: PSV 125-230 (EDV 40-100; ratio 2-4) >= 70% but less than near occlusion: PSV greater than 230 (EDV > 100; ratio> 4.0) Near Occlusion: PSV that is variable; markedly narrowed lumen Occlusion: Absent flow on color/spectral Doppler and no lumen on agudelo scale. COMPARISON: None. FINDINGS: RIGHT: The right common carotid artery (CCA) peak systolic velocity (PSV) is 125 cm/s. The right internal ca rotid artery (ICA) PSV is 95 cm/s. The right ICA end-diastolic velocity (EDV) is 27 cm/s. The right I CA/CCA PSV ratio is 0.8. The external carotid artery (ECA) PSV is 87 cm/s. There is antegrade flow in the right vertebral artery. LEFT: The left CCA PSV is 117 cm/s. The left ICA PSV is 87 cm/s. The left ICA EDV is 35 cm/s. The left ICA/ CCA PSV ratio is 0.7. The ECA PSV is 75 cm/s. There is antegrade flow in the left vertebral artery. IMPRESSION: 1. Less than 50% stenosis in the right internal carotid artery by sonographic criteria. 2. Less than 50% stenosis in the left internal carotid artery by sonographic criteria. Reviewed, dictated and finalized at location B. IMPRESSION: 1. Less than 50% stenosis in the right internal carotid artery by sonographic chaim mcknight. 2. Less than 50% stenosis in the left internal carotid artery by sonographic raji kaba.
--- OUTSIDE RECORDS SUMMARY | 2025-02-17 11:14 | XMS_ITS | Clinical Summary ---
Author Organization [facility] Address [address] [place] [address] Care Team Providers Care Chief Embalmer Name Role Phone Tello Walsh MD Primary Care Provider [phone] Source Comments [facility],non-owned Affiliates and Associated Physician Practices is amultiple site organization consisting of ambulatory clinics and hospital sitesin [place], [place], [place] and [place]. This disclosure is being madepursuant to the Care Everywhere program and may not contain all information available regarding this patient. Last updated 18.[facility] Allergies Active Allergy Reactions Criticality Noted Date Comments Montelukast Other 12/10/2018 Rage Medications * Be aware that medications may not be up to date on this document. Alwaysverify current medications with the patient. 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
--- OUTSIDE RECORDS SUMMARY | 2025-02-17 11:14 | XMS_ITS | Data Portability ---
Author Organization [facility] Madyson Funez Address [address] [place] [address] Care Team Providers Care Log Marker Name Role Phone GREG WALSH Primary Care Provider Assessment Encounter Date Assessment Date Assessment LastModified by Organization Details LastModified Time 04/26/2024 04/26/2024 blood work has been ordered we will try to get a GLP 1 agent she has been on multiple diets in the past to no avail obtain old records continue current therapy see me in 4 months [email or web address] Not available 05/09/2024 22:14:03 08/23/2024 08/23/2024 blood work continue current therapy routine sales agent insurance appointment anxiety hypertension GERD discussed healthy lifestyle care instructions follow up 6 months [email or web address] Not available 08/23/2024 22:31:06 02/01/2025 02/01/[address] obtain blood work healthy lifestyle care instructions further recommendations pending results of testing. EKG shows sinus rhythm some T-wave inversions anteriorly we will obtain echocardiogram worsening symptoms she was instructed to go to the emergency room [email or web address] Not available 02/04/2025 11:03:46 Plan of Treatment Reminders Order Date Submit Date Provider Last Modified By Organization Details Last Modified Time Details Appointments ANY 15 2024 09:30A M Greg Walsh MD Not available Not available Not available Lab CBC w/ auto diff 2024 025 [facility] (Lab), [address] [place] [address] [address], [place], [address], 02/01/2025 21:01:40 CMP, serum or plasma 2024 025 [facility] (Lab), [address], [place], [address], 02/01/2025 21:01:40 lipid panel, serum 2023 024 [facility], [address], [place], [address], 08/24/2024 08:30:59 CBC w/ auto diff 2023 024 [facility], [address], [place], [address], 08/24/2024 08:31:03 CMP, serum or plasma 2023 024 [facility], [address], [place], [address], 08/24/2024 08:31:00 HbA1c (hemoglob in A1c), blood 2023 024 [facility], [address], [place], [address], 08/24/2024 08:31:02 HbA1c (hemoglob in A1c), blood 2023 024 [email or web address], [address], [place], [address], 09/07/2024 15:15:48 lipid panel, serum 2023 024 [email or web address], [address], [place], [address], 09/07/2024 15:15:47 CBC w/ auto diff 2023 024 [email or web address], [address], [place], [address], 09/07/2024 15:15:47 CMP, serum or plasma 2023 024 [email or web address] [facility], [address], [place], [address], 09/07/2024 15:15:47 TSH + free T4, serum 2023 [facility]24 [email or web address], [address], [place], [address], 09/08/2024 17:27:56 T3, free, serum or plasma 2023 024 [email or web address], [address], [place], [address], 09/08/2024 17:28:09 Referral gynecolog ist referral 2023 024 [email or web address] Montiel MD, [address] [place] [address] [address], [place], [address], 01/30/2025 12:28:53 Procedures None recorded. Surgeries None recorded. Imaging CT, head, w/o contrast - STAT Auth not required per [facility] portal 2024 025 [facility], [facility], [place], [address], 02/01/2025 17:52:29 electroca rdiogram 2024 025 [email or web address] In-Office Order, Internal Use Only DO Not Attach Compendium DO Not Attach Compendium, Do Not Delete/merge, [id number] 02/01/2025 17:12:12 US, echocardi ogram 2024 025 [facility] (Cardiology & Emg), [address] [facility] [address], [place], [address], 02/16/2025 13:28:52 MAMMO, screening , bilateral 2023 024 [facility], [address], [place], [address], 02/10/2025 11:08:49 Medication Orders Wegovy 0.25 mg/0.5 mL subcutane ous pen injector 2023 024 [id number], [address] [place] [address], [address], 04/27/2024 13:41:09 Wegovy 0.5 mg/0.5 mL subcutane ous pen injector 2023 024 [email or web address] [facility] [id number], [address] [place] [address], [address], 04/27/2024 13:41:09 Patient TargetsNo targets recorded. 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) [address] [place], [address], 08/24/2024 08:30:59 08/23/2008/24/2024 LIPID PANEL triglyceride s 198 mg/dL 0-149 above high normal Not Available [facility] ([facility]) [address] [place], [address], 08/24/2024 08:30:59 08/23/2008/24/2024 LIPID PANEL HDL cholesterol 54 mg/dL >39 Not Available [facility] ([facility]) [address] [place], [address], 08/24/2024 08:30:59 08/23/20 24 08/24/2024 LIPID PANEL VLDL cholesterol nidia 35 mg/dL 5-40 Not Available [facility] ([facility]) [address] [facility], [place], [address], 08/24/2024 08:30:59 08/23/20 24 08/24/2024 LIPID PANEL LDL chol calc ([facility]) 130 mg/dL 0-99 above high normal Not Available [facility] ([facility]) [address] [place], [address], 08/24/2024 08:30:59 08/23/2008/24/2024 COMP. METAB OLIC PANEL (14) glucose 82 mg/dL 70-99 Not Available [facility] ([facility]) [address] [place], [address], 08/24/2024 08:31:00 08/23/20 24 08/24/2024 COMP. METAB OLIC PANEL (14) BUN 13 mg/dL 6-24 Not Available [facility] ([facility]) [address] [place], [address], 08/24/2024 08:31:00 08/23/20 24 08/24/2024 COMP. METAB OLIC PANEL (14) creatinine 0.88 mg/dL 0.57-1 .00 Not Available [facility] ([facility]) [address] [place], [address], 08/24/2024 08:31:00 08/23/20 24 08/24/2024 COMP. METAB OLIC PANEL (14) eGFR 83 mL/mi n/1.7 3 >59 Not Available [facility] ([facility]) [address] [place], [address], 08/24/2024 08:31:00 08/23/20 24 08/24/2024 COMP. METAB OLIC PANEL (14) BUN/creatini ne ratio 15 9-23 Not Available [facility] ([facility]) [address] [facility] [place], [address], 08/24/2024 08:31:00 08/23/20 24 08/24/2024 COMP. METAB OLIC PANEL (14) sodium 139 mmol/ L 134-14 4 Not Available [facility] ([facility]) [address] [place] [place], [address], 08/24/2024 08:31:00 08/23/20 24 08/24/2024 COMP. METAB OLIC PANEL (14) potassium 4.4 mmol/ L 3.5-5. 2 Not Available [facility] ([facility]) [address] [facility], [place], [address], 08/24/2024 08:31:00 08/23/20 24 08/24/2024 COMP. METAB OLIC PANEL (14) chloride 100 mmol/ L 96-106 Not Available [facility] ([facility]) [address] [facility] [place], [address], 08/24/2024 08:31:00 08/23/20 24 08/24/2024 COMP. METAB OLIC PANEL (14) carbon dioxide, total 23 mmol/ L 20-29 Not Available [facility] ([facility]) [address] [facility] [place], [address], 08/24/2024 08:31:00 08/23/20 24 08/24/2024 COMP. METAB OLIC PANEL (14) calcium 9.6 mg/dL 8.7-10 .2 Not Available [facility] ([facility]) [address] [facility] [place], [address], 08/24/2024 08:31:00 08/23/20 24 08/24/2024 COMP. METAB OLIC PANEL (14) protein, total 6.9 g/dL 6.0-8. 5 Not Available [facility] ([facility]) [address] [facility], [place], [address], 08/24/2024 08:31:00 08/23/2008/24/2024 COMP. METAB OLIC PANEL (14) albumin 4.4 g/dL 3.9-4. 9 Not Available [facility] ([facility]) [address] [facility], [place], [address], 08/24/2024 08:31:00 08/23/2008/24/2024 COMP. METAB OLIC PANEL (14) globulin, total 2.5 g/dL 1.5-4. 5 Not Available [facility] ([facility]) [address] [facility], [place], [address], 08/24/2024 08:31:00 08/23/20 24 08/24/2024 COMP. METAB OLIC PANEL (14) bilirubin, total 0.3 mg/dL 0.0-1. 2 Not Available [facility] ([facility]) [address] [facility], [place], [address], 08/24/2024 08:31:00 08/23/2008/24/2024 COMP. METAB OLIC PANEL (14) alkaline phosphatase 86 IU/L 44-121 Not Available [facility] ([facility]) [address] [facility], [place], [address], 08/24/2024 08:31:00 08/23/20 24 08/24/2024 COMP. METAB OLIC PANEL (14) AST (SGOT) 16 IU/L 0-40 Not Available [facility] ([facility]) [address] [facility], [place], [address], 08/24/2024 08:31:00 08/23/20 24 08/24/2024 COMP. METAB OLIC PANEL (14) ALT (SGPT) 18 IU/L 0-32 Not Available [facility] ([facility]) [address] [facility], [place], [address], 08/24/2024 08:31:00 08/23/2008/24/2024 HEMOG LOBIN A1C hemoglobin A1C 5.7 % 4.8-5. 6 above high normal Predi abete s: 5.7 - 6.4 Diabe tahir: >6.4 Glyce avery contr ol for adult s with diabe tahir: <7.0 Not Available [facility] ([facility]) [address] [facility], [place], [address], 08/24/2024 08:31:02 08/23/2008/24/2024 CBC WITH DIFFE RENTI AL/PL ATELE T WBC 11.6 x10e3 /uL 3.4-10 .8 above high normal Not Available [facility] ([facility]) [address] [facility], [place], [address], 08/24/2024 08:31:03 08/23/2008/24/2024 CBC WITH DIFFE RENTI AL/PL ATELE T RBC 4.65 x10e6 /uL 3.77-5 .28 Not Available [facility] ([facility]) [address] [facility], [place], [address], 08/24/2024 08:31:03 08/23/2008/24/2024 CBC WITH DIFFE RENTI AL/PL ATELE T hemoglobin 14.2 g/dL 11.1-1 5.9 Not Available [facility] ([facility]) [address] [place], [address], 08/24/2024 08:31:03 08/23/2008/24/2024 CBC WITH DIFFE RENTI AL/PL ATELE T hematocrit 41.9 % 34.0-4 6.6 Not Available [facility] ([facility]) [address] [place], [address], 08/24/2024 08:31:03 08/23/20 24 08/24/2024 CBC WITH DIFFE RENTI AL/PL ATELE T MCV 90 fL 79-97 Not Available [facility] ([facility]) [address] [facility], [place], [address], 08/24/2024 08:31:03 08/23/2008/24/2024 CBC WITH DIFFE RENTI AL/PL ATELE T MCH 30.5 pg 26.6-3 3.0 Not Available [facility] ([facility]) [address] [facility], [place], [address], 08/24/2024 08:31:03 08/23/2008/24/2024 CBC WITH DIFFE RENTI AL/PL ATELE T MCHC 33.9 g/dL 31.5-3 5.7 Not Available [facility] ([facility]) [address] [facility], [place], [address], 08/24/2024 08:31:03 08/23/2008/24/2024 CBC WITH DIFFE RENTI AL/PL ATELE T RDW 12.3 % 11.7-1 5.4 Not Available [facility] ([facility]) [address] [facility], [place], [address], 08/24/2024 08:31:03 08/23/2008/24/2024 CBC WITH DIFFE RENTI AL/PL ATELE T platelets 319 x10e3 /uL 150-45 0 Not Available [facility] ([facility]) [address] [facility], [place], [address], 08/24/2024 08:31:03 08/23/2008/24/2024 CBC WITH DIFFE RENTI AL/PL ATELE T neutrophils 61 % notest ab. Not Available [facility] ([facility]) [address] [facility], [place], [address], 08/24/2024 08:31:03 08/23/20 24 08/24/2024 CBC WITH DIFFE RENTI AL/PL ATELE T lymphs 28 % notest ab. Not Available [facility] ([facility]) [address] [facility], [place], [address], 08/24/2024 08:31:03 08/23/2008/24/2024 CBC WITH DIFFE RENTI AL/PL ATELE T monocytes 8 % notest ab. Not Available [facility] ([facility]) [address] [facility], [place], [address], 08/24/2024 08:31:03 08/23/2008/24/2024 CBC WITH DIFFE RENTI AL/PL ATELE T eos 1 % notest ab. Not Available [facility] ([facility]) [address] [facility], [place], [address], 08/24/2024 08:31:03 08/23/20 24 08/24/2024 CBC WITH DIFFE RENTI AL/PL ATELE T basos 1 % notest ab. Not Available [facility] ([facility]) [address] [facility], [place], [address], 08/24/2024 08:31:03 08/23/2008/24/2024 CBC WITH DIFFE RENTI AL/PL ATELE T neutrophils (absolute) 7.2 x10e3 /uL 1.4-7. 0 above high normal Not Available [facility] ([facility]) [address] [facility], [place], [address], 08/24/2024 08:31:03 08/23/20 24 08/24/2024 CBC WITH DIFFE RENTI AL/PL ATELE T lymphs (absolute) 3.3 x10e3 /uL 0.7-3. 1 above high normal Not Available [facility] ([facility]) [address] [facility], [place], [address], 08/24/2024 08:31:03 08/23/20 24 08/24/2024 CBC WITH DIFFE RENTI AL/PL ATELE T monocytes(ab solute) 0.9 x10e3 /uL 0.1-0. 9 Not Available [facility] ([facility]) [address] [facility], [place], [address], 08/24/2024 08:31:03 08/23/20 24 08/24/2024 CBC WITH DIFFE RENTI AL/PL ATELE T eos (absolute) 0.1 x10e3 /uL 0.0-0. 4 Not Available [facility] ([facility]) [address] [facility], [place], [address], 08/24/2024 08:31:03 08/23/20 24 08/24/2024 CBC WITH DIFFE RENTI AL/PL ATELE T baso (absolute) 0.1 x10e3 /uL 0.0-0. 2 Not Available [facility] ([facility]) [address] [facility], [place], [address], 08/24/2024 08:31:03 08/23/20 24 08/24/2024 CBC WITH DIFFE RENTI AL/PL ATELE T immature granulocytes 1 % notest ab. Not Available [facility] ([facility]) [address] [facility], [place], [address], 08/24/2024 08:31:03 08/23/20 24 08/24/2024 CBC WITH DIFFE RENTI AL/PL ATELE T immature grans (abs) 0.1 x10e3 /uL 0.0-0. 1 Not Available [facility] ([facility]) [address] [facility], [place], [address], 08/24/2024 08:31:03 02/02/20 elect rocar diogr am No observ ation record ed. ALAN In-Office Order Internal Use Only DO Not Attach Compendium DO Not Attach Compendium, Do Not Delete/merge, [id number] 02/01/2025 16:55:10 02/02/20 25 02/01/2025 elect rocar diogr am No observ ation record ed. [facility] In-Office Order Internal Use Only DO Not Attach Compendium DO Not Attach Compendium, Do Not Delete/merge, [id number] 02/01/2025 17:12:09 02/02/20 25 02/01/2025 CT, head, w/o contr ast No observ ation record ed. [place] [id number] [facility] [address], [place], [address], 02/01/2025 21:27:00 02/02/20 25 02/01/2025 CT, head, w/o contr ast No observ ation record ed. [place] [id number] [facility] [address], [place], [address], 02/01/2025 21:27:00 02/17/20 25 02/16/2025 , echo ardio gram No observ ation record ed. [place] [id number] [facility] [address], [place], [address], 02/16/2025 22:32:19 Result Notes None recorded. Problems Name Problem SNOMED Code Status Onset Date Resolution Date Notes Provider Name and Address Organization Details Recorded Time Overweight 838913461 Active 2023 Tamika Soriano [place] null, [place] [facility] 4 16:18:29 Essential hypertension 45528511 Active 2023 Tamika Soriano [place], [place] [facility] 4 16:18:31 Anxiety 09278162 Active 2023 Greg Walsh MD Attn: Kacy donato,[address] [place], [address], [place] [facility] 4 22:31:11 Headache 07805917 Active 2024 Tamika Soriano [place] null, [place] [facility] 5 16:29:12 Problem Notes None recorded. Procedures Surgical History Date Name Laterality Status Provider Name and Address Organization Details Recorded Time 11/02/19 09 partial hysterectomy completed TUSHAR Martines - [facility] 04/26/2024 15:23:23 11/02/19 07 Dilation and Curettage completed TUSHAR Martines - [facility] 04/26/2024 15:22:50 11/02/19 05 appendectomy completed Michelle Hernandez MA [facility] 04/26/2024 15:21:57 11/02/19 03 tonsillectomy completed [facility] 04/26/2024 15:22:38 11/02/18 84 ligation of bilateral fallopian tubes completed Michelle Hernandez [facility] 04/26/2024 15:23:54 11/02/18 84 adenoid excision completed Michelle Hernandez [facility] 04/26/2024 15:24:56 cholecystostomy completed Michelle Hernandez [facility] 04/26/2024 15:22:22 Imaging Results Imaging Date Name Status LastModified by Organization Details LastModified Time 02/01/2025 electrocardiogram completed [facility] ce Order Internal Use Only DO Not Attach Compendium DO Not Attach Compendium, Do Not Delete/merge, [id number] 02/01/2025 16:55:10 02/01/2025 electrocardiogram completed [facility] Order Internal Use Only DO Not Attach Compendium DO Not Attach Compendium, Do Not Delete/merge, [id number] 02/01/2025 17:12:09 02/01/2025 CT, head, w/o contrast completed [address], [address], 02/01/2025 21:27:00 02/01/2025 CT, head, w/o contrast completed [address], [address], 02/01/2025 21:27:00 02/16/2025 US, echocardiogram active [email or web address], [address], 02/16/2025 22:32:19 Procedure Notes None recorded. Medical Equipment None [...] Updated DateTime 4 167.64 cm 43.6 kg/m2 488073. 94 g 97 % 97 % 81 /min 124 mm[Hg] 82 mm[Hg] Michelle Hernandez MA [facility] 4 15:31:23 Date Recorded Body height Body mass index (BMI) Body weight Heart rate Oxygen saturation Oxygen saturation in Arterial blood by Pulse oximetry Systolic blood pressure Diastolic blood pressure Provider Name and Address Organization Details Last Updated DateTime 4 167.64 cm 45.6 kg/m2 887297. 2 g 91 /min 95 % 95 % 124 mm[Hg] 70 mm[Hg] Shilpi Mcarthur MA [facility] 4 16:11:45 Date Recorded Body height Body mass index (BMI) Body weight Heart rate Oxygen saturation Oxygen saturation in Arterial blood by Pulse oximetry Systolic blood pressure Diastolic blood pressure Provider Name and Address Organization Details Last Updated DateTime 5 167.64 cm 45.3 kg/m2 278054. 3 g 94 /min 97 % 97 % 124 mm[Hg] 70 mm[Hg] Shilpi Mcarthur MA [facility] 5 15:24:11 Social History Question Answer Notes LastModified by Organizat ion Details LastModified Time Tobacco Smoking Status Never Smoker [facility] 04/26/2024 15:19:44 What Is Your Level Of [...] Anxious, Or Unable To Sleep At Night)? [id number] Information not available 04/26/2024 Do You Use [...] Atrial Fibrillation N High Blood Pressure N Kidney or Bladder Problems N Thyroid Problems N GI Problems N Depression N COPD N Blood Clots N Skin Problems N Anemia N Heart Attack (IA) N Anxiety Disorder Y Diabetes N Muscle, Joint, or Bone Problems N Seizures/Epilepsy N Acid Reflux (GERD) Y Cancer N Stroke N Asthma N Allergies Y High Cholesterol N Hepatitis N Liver Disease N Headaches Y Heart Failure N Osteoporosis N Gynecological History Statement/Question Response Current Control Method Hysterectom y Obstetrics History GPAL:G 0 P 0 0 0 0 Past Encounters Encounter ID Performer Location Encounter Start Date Encounter Closed Date Diagnosis/Indication Diagnosis SNOMED-CT Code Diagnosis ICD10 Code Diagnosis Note [id number] Greg Walsh MD [facility] (Adult Med) [address] [place] [phone] 04/26/2024 14:57:29 04/26/2024 16:22:42 Essential hypertension 91752812 I10 Overweight 983219555 E66 .3 Anxiety 42760173 F41.9 Gastroesop hageal reflux disease without esophagitis 798445123 K21.9 [id number] Greg Walsh MD [facility] (Adult Med) [address] [place] [phone] 08/23/2024 15:58:05 08/23/2024 17:08:29 Essential hypertension 06553872 I10 Diabetes m ellitus screening 301502395 Z13.1 Screening mammography 24 004698 Z12.31 Gynecologi c examination 31664961 Z01.437 [id number] Greg Walsh MD [facility] (Adult Med) [address] [place] [phone] 02/01/2025 14:42:43 02/01/2025 16:27:59 Body mass index 30+ - obesity 443423144 Z68.42 Obesity 163378328 E66.9 Headache 78614725 R51.9 Essential hypertension 88894686 I10 Dizziness 919330474 R42 Health Concerns Section Related Observation LastModified by Organization Detai ls LastModified Time None Recorded Concern Status LastModified by Organization Details LastModified Time None Recorded Advance Directives Directive None Recorded Payers Encounter Date Sequence Insurance Name Policy Number Policy Iglesias Covered Member ID Iglesias Member ID Guarantor Name 04/26/2024 1 [facility] [id number] Deloris L Galo [id number] Deloris Galo 08/23/2024 1 [facility] [id number] Deloris L Galo [id number] Deloris Galo 02/01/2025 1 [facility] [id number] Deloris L Galo [id number] Deloris Rosenthal Notes Date Note Type Note Provider Name and Address Organization Details Recorded Time 04/26/2024 text/html hypertension no headache or dizziness overweight we are going to try to do something with caloric restriction and try to get her on a GLP 1 there is no contraindications anxiety has been stable GERD no nausea no vomiting Greg Walsh MD Attn: Accounting[address] [place], [address], [facility] 05/09/2024 22:14:18 08/23/2024 text/html hypertension no headache no dizziness she needs sales agent insurance for all more referral for well-woman exam anxiety still coping with loss of her aunt that she was very close to and mother with cancer she could not wegovy before her obesity insurance does not cover GLP 1 Greg Walsh MD Attn: [address]ing[address] [place], [address], [facility] 08/23/2024 22:31:29 02/01/2025 text/html episode where sh e felt dizzy flush no palpitations or chest pain no speech problems but it is kind of a dull headache slowly feeling better Greg Walsh MD Attn: Accounting[address] [place], [address], [facility] 02/04/2025 11:04:07 OBGyn Episode No OBEpisode recorded.
--- OUTSIDE RECORDS SUMMARY | 2025-02-17 11:14 | XMS_ITS ---
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 [facility] (Lab) [address] [place], [address], 11/05/2022 19:00:34 11/05/19 23 11/05/2022 LIPID PANEL triglyceride s 103 mg/dL 0-150 [facility] NSUS REPOR T RECOM MENDA TION FOR TRIGL YCERI FESTUS: ADULT CHILD LOW RISK: <150 ----- BODER LINE: 150-1 99 ----- HIGH RISK: >200 ----- Not Available [facility] (Lab) [address] [place], [address], 11/05/2022 19:00:34 11/05/19 23 11/05/2022 LIPID PANEL HDL cholesterol 57 mg/dL 40- Not Available [facility] (Lab) [address] [place], [address], 11/05/2022 19:00:34 11/05/1911/05/2022 LIPID PANEL LDL cholesterol, calculated 152 mg/dL 0-130 high [facility] NSUS REPOR T RECOM MENDA TIONS FOR LDL: ADULT CHILD LOW RISK <130 <110 (OPTI MAL LDL) <100 ----- NEO RLINE : 130-1 59 ----- HIGH RISK: >160 >130 A TRIGL YCERI DE RESUL T >400 INVAL IDATE S THE CALCU LATIO N FOR LDL FRACT IONAT ION - THE LDL RESUL T WILL NOT BE REPOR SUN. Not Available [facility] (Lab) [address] [place], [address], 11/05/2022 19:00:34 11/05/19 23 11/05/2022 CBC W/O DIFFE RENTI AL white blood cells 11.2 x10'3 /uL 4.2-10 .8 high Not Available [facility] (Lab) [address] [place], [address], 11/05/2022 18:08:54 11/05/1911/05/2022 CBC W/O DIFFE RENTI AL red blood cells 4.80 x10'6 /uL 3.80-5 .20 Not Available [facility] (Lab) [address] [place], [address], 11/05/2022 18:08:54 11/05/1911/0511/05/2022 CBC W/O DIFFE RENTI AL hemoglobin 14.4 g/dL 12.0-1 5.6 Not Available [facility] (Lab) [address] [place], [address], 11/05/2022 18:08:54 11/05/19 23 11/05/2022 CBC W/O DIFFE RENTI AL hematocrit 42.8 % 35.7-4 5.7 Not Available [facility] (Lab) [address] [place], [address], 11/05/2022 18:08:54 11/05/1911/05/2022 CBC W/O DIFFE RENTI AL mean red cell volume 89.2 fL 82.0-9 9.0 Not Available [facility] (Lab) [address] [place], [address], 11/05/2022 18:08:54 11/05/1911/05/2022 CBC W/O DIFFE RENTI AL mean red cell hemoglobin 30.0 pg 27.0-3 3.0 Not Available [facility] (Lab) [address] [place], [address], 11/05/2022 18:08:54 11/05/1911/05/2022 CBC W/O DIFFE RENTI AL mean RBC HGB concentratio n 33.6 g/dL 31.0-3 6.0 Not Available [facility] (Lab) [address] [place], [address], 11/05/2022 18:08:54 11/05/1911/05/2022 CBC W/O DIFFE RENTI AL red cell distribution width 12.3 % 11.8-1 5.5 Not Available [facility] (Lab) [address] [place], [address], 11/05/2022 18:08:54 11/05/1911/05/2022 CBC W/O DIFFE RENTI AL platelets 242 x10'3 /uL 150-40 0 Not Available [facility] (Lab) [address] [place], [address], 11/05/2022 18:08:54 11/05/19 23 11/05/2022 CBC W/O DIFFE RENTI AL mean platelet volume 11.2 fL 9.0-12 .4 Not Available [facility] (Lab) [address] [place], [address], 11/05/2022 18:08:54 12/17/19 23 12/17/2022 URINE MICRO SCOPI C EXAM/ IRIS white blood cells 0-8 /i??h pfi?? 0-8 Not Available [facility] (Lab) [address] [place], [address], 12/17/2022 17:21:13 12/17/19 23 12/17/2022 URINE MICRO SCOPI C EXAM/ IRIS red blood cells 11-20 /i??h pfi?? 0-4 abnormal Not Available [facility] (Lab) [address] [place], [address], 12/17/2022 17:21:13 12/17/19 23 12/17/2022 URINE MICRO SCOPI C EXAM/ IRIS bacteria occasi onal abnormal Not Available [facility] (Lab) [address] [place], [address], 12/17/2022 17:21:13 12/17/19 23 12/17/2022 URINE MICRO SCOPI C EXAM/ IRIS mucous many /i??l pfi?? abnormal Not Available [facility] (Lab) [address] [place], [address], 12/17/2022 17:21:13 12/17/19 23 12/17/2022 URINE MICRO SCOPI C EXAM/ IRIS squamous epithelial packed field /i??l pfi?? abnormal Not Available [facility] (Lab) [address] [place], [address], 12/17/2022 17:21:13 12/17/19 23 12/17/2022 CBC/C OMPLE TE BLD COUNT W/DIF F white blood cells 12.6 x10'3 /uL 4.2-10 .8 high Not Available [facility] (Lab) [address] [place], [address], 12/17/2022 17:20:28 12/17/19 23 12/17/2022 CBC/C OMPLE TE BLD COUNT W/DIF F red blood cells 5.02 x10'6 /uL 3.80-5 .20 Not Available [facility] (Lab) [address] [place], [address], 12/17/2022 17:20:28 12/17/19 23 12/17/2022 CBC/C OMPLE TE BLD COUNT W/DIF F hemoglobin 15.1 g/dL 12.0-1 5.6 Not Available [facility] (Lab) [address] [place], [address], 12/17/2022 17:20:28 12/17/19 23 12/17/2022 CBC/C OMPLE TE BLD COUNT W/DIF F hematocrit 45.7 % 35.7-4 5.7 Not Available [facility] (Lab) [address] [place], [address], 12/17/2022 17:20:28 12/17/19 23 12/17/2022 CBC/C OMPLE TE BLD COUNT W/DIF F mean red cell volume 91.0 fL 82.0-9 9.0 Not Available [facility] (Lab) [address] [place], [address], 12/17/2022 17:20:28 12/17/19 23 12/17/2022 CBC/C OMPLE TE BLD COUNT W/DIF F mean red cell hemoglobin 30.1 pg 27.0-3 3.0 Not Available [facility] (Lab) [address] [place], [address], 12/17/2022 17:20:28 12/17/19 23 12/17/2022 CBC/C OMPLE TE BLD COUNT W/DIF F mean RBC HGB concentratio n 33.0 g/dL 31.0-3 6.0 Not Available [facility] (Lab) [address] [place], [address], 12/17/2022 17:20:28 12/17/19 23 12/17/2022 CBC/C OMPLE TE BLD COUNT W/DIF F red cell distribution width 12.2 % 11.8-1 5.5 Not Available [facility] (Lab) [address] [place], [address], 12/17/2022 17:20:28 12/17/19 23 12/17/2022 CBC/C OMPLE TE BLD COUNT W/DIF F platelets 306 x10'3 /uL 150-40 0 Not Available [facility] (Lab) [address] [place], [address], 12/17/2022 17:20:28 12/17/19 23 12/17/2022 CBC/C OMPLE TE BLD COUNT W/DIF F mean platelet volume 9.7 fL 9.0-12 .4 Not Available [facility] (Lab) [address] [place], [address], 12/17/2022 17:20:28 12/17/19 23 12/17/2022 CBC/C OMPLE TE BLD COUNT W/DIF F neutrophils 68.1 % 39.0-7 2.0 Not Available [facility] (Lab) [address] [place], [address], 12/17/2022 17:20:28 12/17/19 23 12/17/2022 CBC/C OMPLE TE BLD COUNT W/DIF F lymphocytes 20.9 % 16.0-4 7.0 Not Available [facility] (Lab) [address] [place], [address], 12/17/2022 17:20:28 12/17/19 23 12/17/2022 CBC/C OMPLE TE BLD COUNT W/DIF F monocytes 9.1 % 5.0-12 .0 Not Available [facility] (Lab) [address] [place], [address], 12/17/2022 17:20:28 12/17/19 23 12/17/2022 CBC/C OMPLE TE BLD COUNT W/DIF F eosinophils 1.0 % 1.0-7. 0 Not Available [facility] (Lab) [address] [place], [address], 12/17/2022 17:20:28 12/17/19 23 12/17/2022 CBC/C OMPLE TE BLD COUNT W/DIF F basophils 0.4 % 0.0-2. 0 Not Available [facility] (Lab) [address] [place], [address], 12/17/2022 17:20:28 12/17/19 23 12/17/2022 CBC/C OMPLE TE BLD COUNT W/DIF F immature granulocytes 0.5 % 0.00-0 .50 Not Available [facility] (Lab) [address] [place], [address], 12/17/2022 17:20:28 12/17/19 23 12/17/2022 CBC/C OMPLE TE BLD COUNT W/DIF F neutrophils, absolute count 8.58 x10'3 /uL 1.5-8. 0 high Not Available [facility] (Lab) [address] [place], [address], 12/17/2022 17:20:28 02/15/12/17/2022 CBC/C OMPLE TE BLD COUNT W/DIF F lymphocytes, absolute count 2.64 x10'3 /uL 1.07-3 .43 Not Available [facility] (Lab) [address] [place], [address], 12/17/2022 17:20:28 12/17/19 23 12/17/2022 CBC/C OMPLE TE BLD COUNT W/DIF F monocytes, absolute count 1.15 x10'3 /uL 0.29-0 .99 high Not Available [facility] (Lab) [address] [place], [address], 12/17/2022 17:20:28 12/17/19 23 12/17/2022 CBC/C OMPLE TE BLD COUNT W/DIF F eosinophils, absolute count 0.13 x10'3 /uL 0.02-0 .53 Not Available [facility] (Lab) [address] [place], [address], 12/17/2022 17:20:28 12/17/19 23 12/17/2022 CBC/C OMPLE TE BLD COUNT W/DIF F basophils, absolute count 0.05 x10'3 /uL 0.01-0 .08 Not Available [facility] (Lab) [address] [place], [address], 12/17/2022 17:20:28 12/17/19 23 12/17/2022 CBC/C OMPLE TE BLD COUNT W/DIF F immature granulocytes ,absolute 0.06 x10'3 /uL 0.00-0 .05 high Not Available [facility] (Lab) [address] [place], [address], 12/17/2022 17:20:28 12/17/19 23 12/17/2022 CBC/C OMPLE TE BLD COUNT W/DIF F nucleated red blood cells 0.0 % -0 Not Available [facility] (Lab) [address] [place], [address], 12/17/2022 17:20:28 12/17/19 23 12/17/2022 CBC/C OMPLE TE BLD COUNT W/DIF F NRBC# 0.00 x10'3 /uL Not Available [facility] (Lab) [address] [place], [address], 12/17/2022 17:20:28 12/17/19 23 12/17/2022 LIPAS E SERUM lipase 23 U/L 23-300 Not Available [facility] (Lab) [address] [place], [address], 12/17/2022 17:09:58 12/17/19 23 12/17/2022 COMPR EHENS SHIRLEY METAB OLIC PANEL sodium 136 mmol/ L 137-14 5 low Not Available [facility] (Lab) [address] [place], [address], 12/17/2022 17:09:10 12/17/19 23 12/17/2022 COMPR EHENS SHIRLEY METAB OLIC PANEL potassium 4.2 mmol/ L 3.5-5. 1 Not Available [facility] (Lab) [address] [place], [address], 12/17/2022 17:09:10 12/17/19 23 12/17/2022 COMPR EHENS SHIRLEY METAB OLIC PANEL chloride 104 mmol/ L 98-107 Not Available [facility] (Lab) [address] [place], [address], 12/17/2022 17:09:10 12/17/19 23 12/17/2022 COMPR EHENS SHIRLEY METAB OLIC PANEL carbon dioxide 25 mmol/ L 22-30 Not Available [facility] (Lab) [address] [place], [address], 12/17/2022 17:09:10 12/17/19 23 12/17/2022 COMPR EHENS SHIRLEY METAB OLIC PANEL anion gap 11.2 mmol/ L 14-22 low Not Available [facility] (Lab) [address] [place], [address], 12/17/2022 17:09:10 12/17/19 23 12/17/2022 COMPR EHENS SHIRLEY METAB OLIC PANEL glucose 98 mg/dL 70-99 Not Available [facility] (Lab) [address] [place], [address], 12/17/2022 17:09:10 12/17/19 23 12/17/2022 COMPR EHENS SHIRLEY METAB OLIC PANEL BUN 12 mg/dL 8-19 Not Available [facility] (Lab) [address] [place], [address], 12/17/2022 17:09:10 12/17/19 23 12/17/2022 COMPR EHENS SHIRLEY METAB OLIC PANEL creatinine 0.64 mg/dL 0.66-1 .25 low Not Available [facility] (Lab) [address] [place], [address], 12/17/2022 17:09:10 12/17/19 23 12/17/2022 COMPR EHENS SHIRLEY METAB OLIC PANEL GFR >60 Refer ence Range : [place] GFR Healt hy Adult : >60 [...] calcu lator is avail able on the [facility] websi te: https ://ww w.kid alec.o rg/pr ofess ional s/kdo qi/gf r_cal culat or Not Available [facility] (Lab) [address] [place], [address], 12/17/2022 17:09:10 12/17/19 23 12/17/2022 COMPR EHENS SHIRLEY METAB OLIC PANEL alkaline phosphatase 80 U/L 38-126 Not Available [facility] (Lab) [address] [place], [address], 12/17/2022 17:09:10 12/17/19 23 12/17/2022 COMPR EHENS SHIRLEY METAB OLIC PANEL alanine aminotransfe rase 28 U/L 0-35 Not Available [facility] (Lab) [address] [place], [address], 12/17/2022 17:09:10 12/17/19 23 12/17/2022 COMPR EHENS SHIRLEY METAB OLIC PANEL aspartate aminotransfe rase 35 U/L 15-37 Not Available [facility] (Lab) [address] [place], [address], 12/17/2022 17:09:10 12/17/19 23 12/17/2022 COMPR EHENS SHIRLEY METAB OLIC PANEL bilirubin, total 1.00 mg/dL 0.20-1 .30 Not Available [facility] (Lab) [address] [place], [address], 12/17/2022 17:09:10 12/17/19 23 12/17/2022 COMPR EHENS SHIRLEY METAB OLIC PANEL calcium 9.3 mg/dL 8.4-10 .2 Not Available [facility] (Lab) [address] [place], [address], 12/17/2022 17:09:10 12/17/19 23 12/17/2022 COMPR EHENS SHIRLEY METAB OLIC PANEL total protein 7.8 g/dL 6.3-8. 2 Not Available [facility] (Lab[facility] [address] [facility] [place], [address], 12/17/2022 17:09:10 12/17/19 23 12/17/2022 COMPR EHENS SHIRLEY METAB OLIC PANEL albumin 4.5 g/dL 3.4-5. 0 Not Available [facility] (Lab) [address] [place], [address], 12/17/2022 17:09:10 12/17/19 23 12/17/2022 COMPR EHENS SHIRLEY METAB OLIC PANEL globulin 3.3 g/dL 2.6-4. 2 Not Available [facility] (Lab) [address] [place], [address], 12/17/2022 17:09:10 12/17/19 23 12/17/2022 COMPR EHENS SHIRLEY METAB OLIC PANEL A/G ratio 1.4 ratio 1.0-2. 0 Not Available [facility] (Lab) [address] [place], [address], 12/17/2022 17:09:10 05/06/20 23 05/06/2023 CBC/C OMPLE TE BLD COUNT W/DIF F white blood cells 7.1 x10'3 /uL 4.2-10 .8 Not Available [facility] (Lab) [address] [place], [address], 05/06/2023 12:22:14 05/06/20 23 05/06/2023 CBC/C OMPLE TE BLD COUNT W/DIF F red blood cells 4.62 x10'6 /uL 3.80-5 .20 Not Available [facility] (Lab) [address] [place], [address], 05/06/2023 12:22:14 05/06/20 23 05/06/2023 CBC/C OMPLE TE BLD COUNT W/DIF F hemoglobin 14.1 g/dL 12.0-[address] [facility] (Lab) [address] [place], [address], 05/06/2023 12:22:14 05/06/20 23 05/06/2023 CBC/C OMPLE TE BLD COUNT W/DIF F hematocrit 41.7 % 35.7-4 5.7 Not Available [facility] (Lab) [address] [place], [address], 05/06/2023 12:22:14 05/06/20 23 05/06/2023 CBC/C OMPLE TE BLD COUNT W/DIF F mean red cell volume 90.3 fL 82.0-9 9.0 Not Available [facility] (Lab) [address] [place], [address], 05/06/2023 12:22:14 05/06/20 23 05/06/2023 CBC/C OMPLE TE BLD COUNT W/DIF F mean red cell hemoglobin 30.5 pg 27.0-3 3.0 Not Available [facility] (Lab) [address] [place], [address], 05/06/2023 12:22:14 05/06/20 23 05/06/2023 CBC/C OMPLE TE BLD COUNT W/DIF F mean RBC HGB concentratio n 33.8 g/dL 31.0-3 6.0 Not Available [facility] (Lab) [address] [place], [address], 05/06/2023 12:22:14 05/06/20 23 05/06/2023 CBC/C OMPLE TE BLD COUNT W/DIF F red cell distribution width 12.0 % 11.8-1 5.5 Not Available [facility] (Lab) [address] [place], [address], 05/06/2023 12:22:14 05/06/20 23 05/06/2023 CBC/C OMPLE TE BLD COUNT W/DIF F platelets 251 x10'3 /uL 150-40 0 Not Available [facility] (Lab) [address] [place], [address], 05/06/2023 12:22:14 05/06/20 23 05/06/2023 CBC/C OMPLE TE BLD COUNT W/DIF F mean platelet volume 9.9 fL 9.0-12 .4 Not Available [facility] (Lab) [address] [place], [address], 05/06/2023 12:22:14 05/06/20 23 05/06/2023 CBC/C OMPLE TE BLD COUNT W/DIF F neutrophils 62.9 % 39.0-7 2.0 Not Available [facility] (Lab) [address] [place], [address], 05/06/2023 12:22:14 05/06/20 23 05/06/2023 CBC/C OMPLE TE BLD COUNT W/DIF F lymphocytes 26.1 % 16.0-4 7.0 Not Available [facility] (Lab) [address] [place], [address], 05/06/2023 12:22:14 05/06/20 23 05/06/2023 CBC/C OMPLE TE BLD COUNT W/DIF F monocytes 8.4 % 5.0-12 .0 Not Available [facility] (Lab) [address] [place], [address], 05/06/2023 12:22:14 05/06/20 23 05/06/2023 CBC/C OMPLE TE BLD COUNT W/DIF F eosinophils 1.1 % 1.0-7. [address] [facility] (Lab) [address] [place], [address], 05/06/2023 12:22:14 05/06/20 23 05/06/2023 CBC/C OMPLE TE BLD COUNT W/DIF F basophils 0.7 % 0.0-2. 0 Not Available [facility] (Lab) [address] [place], [address], 05/06/2023 12:22:14 05/06/20 23 05/06/2023 CBC/C OMPLE TE BLD COUNT W/DIF F immature granulocytes 0.8 % 0.00-0 .50 high Not Available [facility] (Lab) [address] [place], [address], 05/06/2023 12:22:14 05/06/20 23 05/06/2023 CBC/C OMPLE TE BLD COUNT W/DIF F neutrophils, absolute count 4.47 x10'3 /uL 1.5-8. [address] [facility] (Lab) [address] [place], [address], 05/06/2023 12:22:14 05/06/20 23 05/06/2023 CBC/C OMPLE TE BLD COUNT W/DIF F lymphocytes, absolute count 1.86 x10'3 /uL 1.07-3 .43 Not Available [facility] (Lab) [address] [place], [address], 05/06/2023 12:22:14 05/06/2005/06/2023 CBC/C OMPLE TE BLD COUNT W/DIF F monocytes, absolute count 0.60 x10'3 /uL 0.29-0 .99 Not Available [facility] (Lab) [address] [place], [address], 05/06/2023 12:22:14 05/06/20 23 05/06/2023 CBC/C OMPLE TE BLD COUNT W/DIF F eosinophils, absolute count 0.08 x10'3 /uL 0.02-0 .53 Not Available [facility] (Lab) [address] [place], [address], 05/06/2023 12:22:14 05/06/20 23 05/06/2023 CBC/C OMPLE TE BLD COUNT W/DIF F basophils, absolute count 0.05 x10'3 /uL 0.01-0 .08 Not Available [facility] (Lab) [address] [place], [address], 05/06/2023 12:22:14 05/06/20 23 05/06/2023 CBC/C OMPLE TE BLD COUNT W/DIF F immature granulocytes ,absolute 0.06 x10'3 /uL 0.00-0 .05 high Not Available [facility] (Lab) [address] [place], [address], 05/06/2023 12:22:14 05/06/20 23 05/06/2023 CBC/C OMPLE TE BLD COUNT W/DIF F nucleated red blood cells 0.0 % -0 Not Available [facility] (Lab) [address] [place], [address], 05/06/2023 12:22:14 05/06/20 23 05/06/2023 CBC/C OMPLE TE BLD COUNT W/DIF F NRBC# 0.00 x10'3 /uL Not Available [facility] (Lab) [address] [place], [address], 05/06/2023 12:22:14 05/06/20 23 05/06/2023 LIPID PANEL cholesterol 212 mg/dL 140-19 9 high [facility] NSUS RECOM MENDA TION FOR LOLI STERO L: ADULT CHILD LOW RISK: <200 <170 BORDE RLINE : <200- 239 ----- HIGH RISK: >240 >200 Not Available [facility] (Lab) [address] [place], [address], 05/06/2023 12:37:23 05/06/20 23 05/06/2023 LIPID PANEL triglyceride s 79 mg/dL 0-150 [facility] NSUS REPOR T RECOM MENDA TION FOR TRIGL YCERI FESTUS: ADULT CHILD LOW RISK: <150 ----- BODER LINE: 150-1 99 ----- HIGH RISK: >200 ----- Not Available [facility] (Lab) [address] [place], [address], 05/06/2023 12:37:23 05/06/20 23 05/06/2023 LIPID PANEL HDL cholesterol 58 mg/dL 40- Not Available [facility] (Lab) [address] [place], [address], 05/06/2023 12:37:23 05/06/20 23 05/06/2023 LIPID PANEL LDL cholesterol, calculated 138 mg/dL [...] WILL NOT BE REPOR SUN. Not Available [facility] (Lab) [address] [place], [address], 05/06/2023 12:37:23 05/06/2005/06/2023 COMPR EHENS SHIRLEY METAB OLIC PANEL sodium 138 mmol/ L 137-14 5 Not Available [facility] (Lab) [address] [place], [address], 05/06/2023 12:37:29 05/06/2005/06/2023 COMPR EHENS SHIRLEY METAB OLIC PANEL potassium 4.1 mmol/ L 3.5-5. [address] [facility] (Lab) [address] [place], [address], 05/06/2023 12:37:29 05/06/20 23 05/06/2023 COMPR EHENS SHIRLEY METAB OLIC PANEL chloride 106 mmol/ L 98-[address] [facility] (Lab) [address] [place], [address], 05/06/2023 12:37:29 05/06/20 23 05/06/2023 COMPR EHENS SHIRLEY METAB OLIC PANEL carbon dioxide 21 mmol/ L 22-[address] [facility] (Lab) [address] [place], [address], 05/06/2023 12:37:29 05/06/20 23 05/06/2023 COMPR EHENS SHIRLEY METAB OLIC PANEL anion gap 15.1 mmol/ L 14-[address] [facility] (Lab) [address] [place], [address], 05/06/2023 12:37:29 05/06/20 23 05/06/2023 COMPR EHENS SHIRLEY METAB OLIC PANEL glucose 102 mg/dL 70-[address] [facility] (Lab) [address] [place], [address], 05/06/2023 12:37:29 05/06/20 23 05/06/2023 COMPR EHENS SHIRLEY METAB OLIC PANEL BUN 9 mg/dL 8-[address] [facility] (Lab) [address] [place], [address], 05/06/2023 12:37:29 05/06/20 23 05/06/2023 COMPR EHENS SHIRLEY METAB OLIC PANEL creatinine 0.61 mg/dL 0.66-1 [address] [facility] (Lab) [address] [place], [address], 05/06/2023 12:37:29 05/06/20 23 05/06/2023 COMPR EHENS SHIRLEY METAB OLIC PANEL GFR >60 Refer ence Range : [place] GFR Healt hy Adult : >60 [...] calcu lator is avail able on the [facility] websi te: [email or web address] :[email or web address] [email or web address] qi/gf r_cal culat or Not Available [facility] (Lab) [address] [place], [address], 05/06/2023 12:37:29 05/06/2005/06/2023 COMPR EHENS SHIRLEY METAB OLIC PANEL alkaline phosphatase 91 U/L 38-126 Not Available [facility] (Lab) [address] [place], [address], 05/06/2023 12:37:29 05/06/20 23 05/06/2023 COMPR EHENS SHIRLEY METAB OLIC PANEL alanine aminotransfe rase 20 U/L 0-35 Not Available [facility] (Lab) [address] [place], [address], 05/06/2023 12:37:29 05/06/20 23 05/06/2023 COMPR EHENS SHIRLEY METAB OLIC PANEL aspartate aminotransfe rase 21 U/L 15-37 Not Available [facility] (Lab) [address] [place], [address], 05/06/2023 12:37:29 05/06/20 23 05/06/2023 COMPR EHENS SHIRLEY METAB OLIC PANEL bilirubin, total 0.50 mg/dL 0.20-1 .30 Not Available [facility] (Lab) [address] [place], [address], 05/06/2023 12:37:29 05/06/20 23 05/06/2023 COMPR EHENS SHIRLEY METAB OLIC PANEL calcium 8.5 mg/dL 8.4-10 .2 Not Available [facility] (Lab) [address] [facility]
--- OUTSIDE RECORDS SUMMARY | 2025-02-17 11:14 | XMS_ITS | Data Portability ---
Author Organization [place] - [facility] , [facility] Address [address] [place] [address] Assessment Encounter Date Assessment Date Assessment LastModified [...] (0.5 %) eye ointment 2023 024 [facility] [address], [address], 12:38:28 Patient TargetsNo targets recorded. Patient Instructions Encounter Date Encounter Id Patient Instructions Last Modified By Organization Details Last Modified Time 09/16/2024 [id number] styes and chalazia: care instructions npalka Not [...] SNOMED-CT Code Diagnosis ICD10 Code Diagnosis Note [id number] [facility] [address] [place] [address] 09/16/2024 12:24:59 09/16/2024 18:36:02 Chalazion of left upper eyelid [id number] H00.14 Health Concerns Section Related Observation LastModified by Organization Detai ls LastModified Time None Recorded Concern Status LastModified by Organization Details LastModified Time None Recorded Advance Directives Directive None Recorded Payers Encounter Date Sequence Insurance Name Policy Number Policy Iglesias Covered Member ID Iglesias Member ID Guarantor Name 09/16/2024 1 [facility] [id number] Deloris Rosenthal [id number] Deloris Rosenthal 09/16/2024 2 *SELF PAY* [id number] Deloris Rosenthal [id number] Deloris Rosenthal Notes Date Note Type Note [...] changes to vision or pain GABRIELLE Cook [address] [place] [address], [address], [facility] - [facility] 09/16/2024 12:38:31 OBGyn Episode No OBEpisode recorded.
== END 2025-02-17 11:00 | disposition home or self-care (01) ==
PROVIDERS: PCP Internal Medicine; Visit Provider Internal Medicine
DX: I65.23 Occlusion and stenosis of bilateral carotid arteries (principal)
CPT/HCPCS: 93880

== ENCOUNTER 2025-04-04 13:08 | Outpatient (CLI) | payer OTHER, SELFPAY ==
--- NOTE | ~2025-04-04 | MM_ITS ---
EXAMINATION: MM screening timothy BI w michelle HISTORY: Screening mammogram TECHNIQUE: Craniocaudal and mediolateral oblique 3-D tomosynthesis images were obtained and synthetic 2-D images were generated. CAD analysis was submitted and interpreted. COMPARISON: 10/09/2022 through 04/20/2019 BREAST PARENCHYMAL COMPOSITION: There are scattered areas of fibroglandular density. FINDINGS: No suspicious mass, calcification, or architectural distortion are identified in either benny ast to suggest malignancy. IMPRESSION: 1. No mammographic evidence of malignancy. 2. Recommend routine screening mammography in one year. BI-RADS Category 1: Negative Reviewed, dictated and finalized at location B.
== END 2025-04-04 13:09 | disposition home or self-care (01) ==
PROVIDERS: PCP Internal Medicine; Visit Provider Internal Medicine
DX: Z12.31 Encounter for screening mammogram for malignant neoplasm of breast (principal)
CPT/HCPCS: 77063; 77067